=== PATIENT | female | born 1970 | race Caucasian/White ===

== ENCOUNTER 2017-04-30 15:28 | Emergency (ER) | payer OTHER ==
[~2017-04-30] VITALS: Ht 160 cm; Wt 94.1 kg
[2017-04-30 15:34] VITALS: TEMP 36.5; Ht 160 cm; Wt 94.1 kg
--- NOTE | 2017-04-30 16:05 | EMERGENCY ROOM VISIT NOTE ---
ED Visit Note First contact with patient: 15:40 CHIEF COMPLAINT: Tailbone pain, possible Lyme disease HISTORY OF PRESENT ILLNESS: This 46-year-old female patient presents to the emergency department, ambulatory, complaining of tailbone pain x3 days. She states she was working outside breaking up branches and jumped onto a large log to do this, w prudence the log rolled and she landed on her tailbone. She denies any head injury. She states the discomfort feels like a bruise, however when she turns the wrong way it causes increased pain. She has not taken any medications for her pain, and states as long as she is cautious about how she is turning and moving, the pain is not a problem. The patient has no diarrhea or constipation. She has no abdominal pain. There is minimal bruising on the low back. She denies any fever, chills, radiating back pain, paresthesias, or other concerning symptoms. The patient also complains of a tick bite last week on her right back. She states she did note a bull's-eye rash surrounding the bite. She was given a prophylactic dose of doxycycline to prevent Lyme disease. The patient states she had labs drawn and was told by her PCP that she may have Lyme disease, however it was not treated properly. She states she is having difficulty getting in contact with them and have an evaluation completed, and is irritated that they are not treating her. Patient does question if she could have repeat testing here and possible treatment for Lyme disease. The patient denies any new joint pains, palpitations, chest pain, dizziness, dyspnea, confusion, mental status change, or other concerning symptoms. REVIEW OF SYSTEMS: A 10 system review of systems was performed with positives and pertinent negatives listed in the history of present illness. All other systems were reviewed and are negative. ALLERGIES: Demerol MEDICATIONS: Meloxicam PMH: Multiple hereditary exostosis SOCIAL HISTORY: Patient lives locally with family. She denies drug, alcohol, tobacco use. PHYSICAL EXAM: VITALS: Vitals are noted on the nurse's note and reviewed by myself. Vital signs stable. GENERAL: This is a 46-year-old white female, in no acute distress, nondiaphoretic, well-developed well-nourished. SKIN: The skin was without rashes, erythema, edema, or bruising. There is no tenting of the skin. Capillary reflex less than 2 seconds. HEAD: Normocephalic atraumatic. EARS: External auditory canals clear, tympanic membranes pearly dodd without erythema or effusion bilaterally. EYES: Pupils equal round and reactive to light and accommodation. Conjunctivae without injection, sclerae without icterus. Extraocular movements intact. NOSE: Patent, turbinates without inflammation or discharge. No sinus tenderness. MOUTH: Mucous membranes moist. Tonsils are not enlarged. Pharynx without erythema or exudate. Uvula midline. Airway patent. Tongue does not deviate. NECK: Supple without nuchal rigidity. No lymphadenopathy. No thyromegaly. Cervical spine is nontender. No JVD. HEART: Regular rate and rhythm without murmurs gallops or rubs. LUNGS: Clear to auscultation bilaterally without wheezes, rales or rhonchi. No dullness to percussion. No retractions or accessory muscle use. ABDOMEN: Positive bowel sounds x 4. Normal tympanic percussion. Soft, nontender, without masses or organomegaly. Guidry sign negative. No guarding or rebound tenderness. MUSCULOSKELETAL: There is significant tenderness over the coccyx on palpation and with positioning of the patient. No muscle atrophy, erythema, or edema noted. Full range of motion without joint tenderness in all extremities. No other tenderness to palpation. Normal gait. Strength 5/5 throughout. NEURO: Patient was alert and oriented to person place and time. Normal sensation to light and sharp touch. Deep tendon reflexes 2+ throughout. No focal neurological deficits. RADIOLOGY: X-Ray Sacrum/Coccyx: SACRUM COCCYX MIN 2 VIEWS CLINICAL HISTORY: fall on tailbone, coccyx/sacrum pain trauma. Pain. COMPARISON STUDY: None FINDINGS: Blank slightly displaced fracture of the sacrococcygeal junction. The inferior coccygeal segments are slightly displaced posteriorly estimated at 3 mm.. Moderate degenerative change of the sacroiliac joints bilaterally. Sacral foramina are symmetric. There are degenerative and/or old postmenopausal changes of the pubic rings. IMPRESSION: Slightly displaced fracture sacrococcygeal junction. The above report was generated using voice recognition software. It may contain grammatical, syntax or spelling errors. Electronically signed by: Temo Larose M.D. 04/30/2017 4:38 PM Dictated Date/Time: 04/30/2017 4:36 PM EMERGENCY DEPARTMENT COURSE: The patient was seen and evaluated as above. X- ray of the sacrum and coccyx was performed and did show mildly displaced coccyx fracture. The patient also had labs drawn for Lyme disease. Labs were negative at this time. I did discuss treatment options with the patient at bedside. She states she had been speaking with Dr. Avelar earlier today at his home and discussing Lyme disease and treatment with doxycycline. I discussed the risks associated with doxycycline and an antibiotic for an extended period of time with the patient at bedside. I encouraged her to follow up outpatient with her PCP, infectious disease specialist, or Lyme disease specialist prior to starting antibiotic treatment due to these risks. The patient verbalizes understanding and states she prefers to start antibiotics despite the negative labs in the ED, risks, and possible adverse reactions of taking antibiotics. Discharge instructions were reviewed, medications were sent to the pharmacy, and the patient was discharged home in good condition. I attest that I have personally reviewed the patient's current medication list. Patient was found to have normal blood pressure on screening and does not require follow-up. DIFFERENTIAL DIAGNOSIS: Lyme disease, insect bite, localized infection, coccydynia, coccyx fracture, sacrum fracture, and others DIAGNOSIS: Coccyx fracture, tick bite Current/Historical Medications Scheduled Doxycycline Hyclate (Vibramycin), 100 MG PO BID Scheduled PRN Hydrocodone/Acetaminophen 5MG/325MG (Stow 5MG/325MG), 1 TABLET PO QID PRN for Pain Meloxicam (Mobic), 15 MG PO DAILY PRN for Pain Allergies Coded Allergies: Meperidine (Verified Allergy, Unknown, 08/06/09) Vital Signs Date Time Temp Pulse Resp B/P (MAP) Pulse Ox O2 Delivery O2 Flow Rate FiO2 04/30/17 15:34 36.5 73 18 124/81 97 Room Air Laboratory Results Test 04/30/17 16:04 Lyme Disease IgG Antibody NEG (NEG) Lyme Disease IgM Antibody NEG (NEG) Departure Information Impression Primary Impression: Fracture of coccyx, initial encounter for closed fracture Additional Impression: Tick bite Dispostion Home / Self-Care Condition GOOD Prescriptions Doxycycline Hyclate (VIBRAMYCIN) 100 Mg Cap 100 MG PO BID for 21 Days, #42 CAP Prov: Summer Pacheco, [place] 04/30/17 Hydrocodone/Acetaminophen 5MG/325MG (Stow 5MG/325MG) Tab 1 TABLET PO QID Y for Pain for 3 Days, #12 TAB PRN PAIN Prov: Summer Pacheco PA-C 04/30/17 Referrals No Doctor, Assigned (PCP) Patient Instructions Doxycycline tablets or capsules, ED Facts Tick, ED Fx Coccyx, ED Lyme Disease, [facility] Additional Instructions You were seen in the emergency department today for a coccyx fracture. This fracture will heal on its own over time. You should give it at least 6-8 weeks to fully heal. Ibuprofen(Motrin, Advil) may be used for fever or pain. Use 600mg every six hours as needed. Take with food. Avoid using more than 2400mg in a 24 hour period. Do not use 2400mg per day for more than three consecutive days without physician direction. Prolonged inappropriate use can lead to stomach upset or ulcers. Do not take ibuprofen while you're taking meloxicam. (AND/OR) Acetaminophen(Tylenol) may be used for fever or pain. Use 1000mg every six hours as needed. Avoid using more than 3000mg in a 24 hour period. I do recommend an OTC stool softener to help prevent constipation, which could worsen pain. You have been prescribed Stow to be used for pain control. Take 1 tablets every 4-6 hours as needed for pain. This is a narcotic medication. You cannot drive or consume alcohol while on this medicine. This medicine should only be used for pain that cannot be controlled with [id number] pain medicines. I do recommend to sit on a donut pillow or exercise ball to help relieve discomfort. We did also perform laboratory testing for Lyme disease. This was negative. I do not feel that 3 weeks of antibiotics at this time is warranted, however you may want to continue to follow-up with your PCP regarding further testing. If you notice significant joint pains, swelling, palpitations, difficulty breathing , or other concerning neurological symptoms, or an erythema migrans (bull's-eye rash), return to the emergency Department or see your PCP for further treatment. As discussed, and at your request and recommendation by Dr. Avelar, you were given a prescription for a 3-week course of Doxycycline to be taken BID in case of lyme disease, despite negative testing in the ED. As discussed, this antibiotic does have the potential for side effects, including allergic reaction , anaphylaxis, photosensitivity, C. difficile associated diarrhea, vasculitis, anemia, hepatitis, pericarditis, hepatotoxicity, nephrotoxicity, pancreatitis, thrombocytopenia, neutropenia, esophagitis or esophageal ulcer, headache, nausea , arthralgia, diarrhea, URI symptoms, rash, or others. You may want to consider follow-up with your PCP or infectious disease provider, or a lyme disease specialist, prior to taking this medication. Avoid sun exposure, and you may want to consider a probiotic while taking Doxycycline. Return to the emergency department for any symptoms outlined above or other concerns. Problem Qualifiers Additional Impression: Tick bite Encounter type: subsequent encounter Qualified Codes: W57.XXXD - Bitten or stung by nonvenomous insect and other nonvenomous arthropods, subsequent encounter
[2017-04-30] MEDS ORDERED: MELO15TA4 PO (16:10)
--- NOTE | 2017-04-30 16:39 | DIAGNOSTIC IMAGING REPORT ---
SACRUM COCCYX MIN 2 VIEWS CLINICAL HISTORY: fall on tailbone, coccyx/sacrum pain trauma. Pain. COMPARISON STUDY: None FINDINGS: Blank slightly displaced fracture of the sacrococcygeal junction. The inferior coccygeal segments are slightly displaced posteriorly estimated at 3 mm.. Moderate degenerative change of the sacroiliac joints bilaterally. Sacral foramina are symmetric. There are degenerative and/or old postmenopausal changes of the pubic rings. IMPRESSION: Slightly displaced fracture sacrococcygeal junction. The above report was generated using voice recognition software. It may contain grammatical, syntax or spelling errors. Electronically signed by: Temo Larose M.D. 04/30/2017 4:38 PM Dictated Date/Time: 04/30/2017 4:36 PM
[2017-04-30] MEDS ORDERED: HYDR-5688 PO (16:43)
[2017-04-30 17:08] LABS: LYME DISEASE AB IGG NEG (NEG); LYME DISEASE AB IGM NEG (NEG)
[2017-04-30] MEDS ORDERED: DOXY100C PO (17:14)
[2017-04-30 17:31] VITALS: BP 104/50; PULSE 62; O2SAT 100
== END 2017-04-30 17:34 | disposition home or self-care (01) ==
LOC: C.EDB 15:30 → C.EDD 17:34
DX: S32.2XXA Fracture of coccyx, initial encounter for closed fracture (principal); W57.XXXD Bitten or stung by nonvenomous insect and other nonvenomous arthropods, subsequent encounter

== ENCOUNTER 2022-02-07 20:53 | Inpatient (IN) ==
[2022-02-07] MEDS ORDERED: ONDANSETRON INJ 2 MG/ML 2 ML VIAL IV STA (21:39)
[2022-02-07] MEDS ORDERED: SODIUM CHLORIDE 0.9% 500 ML IV STA (21:39)
[2022-02-07] MEDS ORDERED: MoRPHine SULFATE 4 MG/ML 1 ML CARP\\VIAL IV STA (21:40)
[2022-02-07 22:17] LABS: Basophils # (auto) 0.02 K/uL (0-0.2); Basophils % (auto) 0.2 %; Eosinophils # (auto) 0.06 K/uL (0-0.50); Eosinophils % (auto) 0.5 %; Hematocrit (blood only) 41.9 % (34.1-44.9); Hemoglobin 14.5 g/dl (12.0-16.0); Immature Granulocytes # (auto) 0.03 K/uL (0.00-0.02); Immature Granulocytes % (auto) 0.3 %; Lymphocytes # (auto) 1.69 K/uL (1.2-3.4); Mean Corpuscular Hemoglobin 30.1 pg (25.0-34.0); Mean Corpuscular Hgb Conc 34.6 g/dL (32.0-36.0); Mean Corpuscular Volume 86.9 fL (80.0-100.0); Mean Platelet Volume 11.3 fL (9.4-12.3); Monocytes # (auto) 0.62 K/uL (0.24-0.82); Monocytes % (auto) 5.5 %; Neutrophils # (auto) 8.86 K/uL (1.4-6.5); Neutrophils % (auto) 78.5 %; Platelet Count 298 K/uL (130-400); RDW Coefficient of Variation 12.6 % (11.5-14.5); RDW Standard Deviation 40.1 fL (36.4-46.3); Red Blood Count 4.82 M/uL (3.93-5.22); White Blood Count 11.28 K/ul (4.8-10.8)
[2022-02-07 22:38] LABS: Alanine Aminotransferase 14 U/L (7-52); Albumin Globulin Ratio 1.4 (0.9-2); Albumin Level 4.3 gm/dl (3.4-5.0); Alkaline Phosphatase 70 U/L (34-104); Anion Gap 12 (3-11); Aspartate Aminotransferase 15 U/L (13-39); BUN Creatinine Ratio 17.6 (10-20); Bilirubin,Total 0.5 mg/dl (0.2-1.0); Blood Urea Nitrogen 18 mg/dl (6-23); Calcium 9.6 mg/dl (8.5-10.1); Carbon Dioxide 21 mmol/L (21-32); Chloride 105 mmol/L (98-107); Est GFR (African American) 73.2 ml/min; Est GFR (Non-African American) 63.2 ml/min; Globulin 3.1 gm/dl (2.5-4.0); Glucose 118 mg/dl (70-99(Fasting)); Lipase 11 U/L (11-82); Potassium 3.8 mmol/L (3.5-5.1); Sodium 138 mmol/L (136-145); Total Protein 7.4 gm/dl (6.0-8.3)
[2022-02-08] MEDS ORDERED: KETOROLAC 30 MG/ML VIAL IV STA (00:33)
[2022-02-08] MEDS ORDERED: PROMETHAZINE 12.5 MG/50.5 ML BAG IV STA (00:38)
--- NOTE | 2022-02-08 00:44 | Emergency Department Note ---
History of Present Illness General Chief complaint: Abdominal Pain Stated complaint: SEVERE ABDOMINAL PAIN Time Seen by Provider: 02/08/22 00:30 History of Present Illness Maximum Pain Intensity: 10 This is a 51-year-old female presenting to the emergency department for evaluation of left flank pain/abdominal pain for the past few hours. The patient states that around 6 PM she began having some left lower quadrant abdominal pain that caused her nausea with vomiting. She has not had fevers or chills. No chest pain, chest tightness, shortness of breath. The patient does have a history of diverticulitis and is concerned that she may have the same symptoms. Her pain is also radiating into her back and rates her pain a colicky 10/10 at worst. She has not been able to tolerate anything pain medication gilmore because of her vomiting. Home Medications Medication Instructions Recorded Confirmed Type conj estrogen-medroxyprogesterone 1 tab PO HS 12/10/20 02/08/22 History 0.45 mg-1.5 mg tablet (Prempro) lidocaine 5 % topical patch 1 patch topical DAILY PRN Pain 12/10/20 02/08/22 History trazodone 100 mg tablet 200 mg PO HS 12/10/20 02/08/22 History diclofenac sodium 75 mg 75 mg PO BID PRN Pain, Severe 08/16/21 02/08/22 History tablet,delayed release phentermine 37.5 mg tablet 37.5 mg PO DAILY 08/16/21 02/08/22 History metoprolol succinate 25 mg 25 mg PO DAILY PRN PVC'S 02/08/22 02/08/22 History tablet,extended release 24 hr naltrexone 50 mg tablet 12.5 mg PO DAILY 02/08/22 02/08/22 History omeprazole 20 mg tablet,delayed 20 mg PO DAILY PRN Heartburn 02/08/22 02/08/22 History release spironolactone 100 mg tablet 100 mg PO QAM 02/08/22 02/08/22 History topiramate 50 mg tablet 50 mg PO DAILY 02/08/22 02/08/22 History Allergies Allergy/AdvReac Type Severity Reaction Status Date / Time hydromorphone [From Dilaudid] Allergy Unknown CAN'T Verified 02/08/22 01:00 REMEMBER meperidine AdvReac Severe SEIZURE Verified 02/08/22 01:00 A CHILD Past Med/Surg History Medical History Symptoms of urinary tract infection UTI (urinary tract infection) Surgical History No significant past surgical history Family History Other No significant family history Social History Smoking Status: Never smoker Preferred Language: [place] Communication Ability: Effective Feels Safe at Home: Yes Review of Systems A total of 10 systems reviewed and were otherwise negative Physical Exam Vital Signs Vital Signs - 24 hr 02/07/22 21:25 02/08/22 01:16 Temperature 37.2 C Temperature Source Temporal Artery Scan Pulse Rate 68 Pulse Rate [Apical] 67 Pulse Rhythm [Apical] Regular Pulse Strength [Apical] Normal Respiratory Rate 20 18 Respiratory Effort / Characteristics Non-Labored Non-Labored Spontaneous Respiratory Depth Normal Normal Respiratory Pattern Regular Regular Blood Pressure 123/82 Blood Pressure [Left Arm] 123/62 Blood Pressure Mean 95 Blood Pressure Mean [Left Arm] 82 Blood Pressure Position Sitting Blood Pressure Position [Left Arm] Lying Pulse Oximetry 100 99 Oxygen Delivery Method Room Air Room Air Sepsis Recent Fever Within 48 Hours No Sepsis New/Unexplained Change in Mental Status N/A Sepsis Action Taken by Nursing No Action Required VITALS: Vitals are noted on the nurse's note and reviewed by myself. Vital signs stable. GENERAL: Well-developed, well-nourished, white female, who is significantly uncomfortable on presentation. HEAD: Normocephalic atraumatic. NECK: Supple without nuchal rigidity. No lymphadenopathy. No thyromegaly. Cervical spine is nontender. HEART: Regular rate and rhythm without murmurs gallops or rubs. LUNGS: Clear to auscultation bilaterally without wheezes, rales or rhonchi. No retractions or accessory muscle use. ABDOMEN: Positive normal bowel sounds x 4. Soft, nontender, without masses or o rganomegaly. No guarding or rebound tenderness. MUSCULOSKELETAL: No muscle atrophy, erythema, or edema noted. Full range of motion in all extremities. Course Administered Medications Acetaminophen (Acetaminophen 325 Mg Tab) 650 mg PO Q4H PRN PRN Reason: pain/fever Stop: 03/10/22 03:06 Last Admin: 02/08/22 04:20 Dose: 650 mg Documented By: ANASTASIYA Ceftriaxone Sodium 2,000 mg/ (Dextrose) 70 mls @ 140 mls/hr IV Q24H TANIA; Protocol Stop: 02/18/22 03:59 Last Infusion: 02/08/22 04:59 Dose: 0 mls/hr Documented By: Admin: 02/08/22 04:17 Dose: 140 mls/hr Documented By: ANASTASIYA Sodium Chloride (Nss 1000ml) 1,000 mls @ 125 mls/hr IV .Q8H TANIA Stop: 03/10/22 03:06 Last Admin: 02/08/22 04:18 Dose: 125 mls/hr Documented By: ANASTASIYA Discontinued Medications Sodium Chloride (Nss) 500 mls @ 999 mls/hr IV .Q31M STA Stop: 02/07/22 22:09 Last Infusion: 02/07/22 23:30 Dose: 0 mls/hr Documented By: Admin: 02/07/22 22:08 Dose: 999 mls/hr Documented By: TOMMY Promethazine HCl (Phenergan) 12.5 mg in 50.5 mls @ 202 mls/hr IV NOW STA Stop: 02/08/22 00:52 Last Infusion: 02/08/22 01:20 Dose: 0 mls/hr Documented By: Admin: 02/08/22 01:01 Dose: 202 mls/hr Documented By: PERLA Sodium Chloride (Nss 1000ml) 1,000 mls @ 999 mls/hr IV .Q1H1M TANIA Stop: 02/08/22 01:45 Last Infusion: 02/08/22 02:13 Dose: 0 mls/hr Documented By: Admin: 02/08/22 00:56 Dose: 999 mls/hr Documented By: PERLA Ketorolac Tromethamine (Ketorolac 30 Mg/Ml Vial) 30 mg IV NOW STA Stop: 02/08/22 00:34 Last Admin: 02/08/22 00:57 Dose: 30 mg Documented By: PERLA Morphine Sulfate (Morphine Sulfate 4 Mg/Ml 1 Ml Carp\Vial) 4 mg IV NOW STA Stop: 02/07/22 21:41 Last Admin: 02/07/22 22:08 Dose: 4 mg Documented By: TOMMY Morphine Sulfate (Morphine Sulfate 4 Mg/Ml 1 Ml Carp\Vial) 4 mg IV Q30M PRN PRN Reason: Pain Stop: 02/22/22 00:32 Last Admin: 02/08/22 02:51 Dose: 4 mg Documented By: Admin: 02/08/22 00:59 Dose: 4 mg Documented By: PERLA Ondansetron HCl (Ondansetron Inj 2 Mg/Ml 2 Ml Vial) 4 mg IV NOW STA Stop: 02/07/22 21:40 Last Admin: 02/07/22 22:08 Dose: 4 mg Documented By: TOMMY Medical Decision Making Differential Diagnosis Differential diagnosis: Etiologies such as shingles, pyelonephritis/UTI, renal colic, appendicitis, diverticulitis, mesenteric ischemia, torsion, aortic pathology, infections, inflammatory bowel disease, bowel obstruction, PUD, biliary pathology, as well as others were entertained. Laboratory Data Result diagrams: 02/07/22 22:05 02/07/22 22:05 Lab Results 02/07/22 02/07/22 02/08/22 Range/Units 22:05 22:05 01:17 WBC 11.28 H (4.8-10.8) K/ul RBC 4.82 (3.93-5.22) M/uL Hgb 14.5 (12.0-16.0) g/dl Hct 41.9 (34.1-44.9) % MCV 86.9 (80.0-100.0) fL MCH 30.1 (25.0-34.0) pg MCHC 34.6 (32.0-36.0) g/dL RDW Std Deviation 40.1 (36.4-46.3) fL RDW Coeff of Jovan 12.6 (11.5-14.5) % Plt Count 298 (130-400) K/uL MPV 11.3 (9.4-12.3) fL Immature Gran % (Auto) 0.3 % Neut % (Auto) 78.5 % Lymph % (Auto) 15.0 % [place] % (Auto) 5.5 % Eos % (Auto) 0.5 % Baso % (Auto) 0.2 % Neut # (Auto) 8.86 H (1.4-6.5) K/uL Lymph # (Auto) 1.69 (1.2-3.4) K/uL [place] # (Auto) 0.62 (0.24-0.82) K/uL Eos # (Auto) 0.06 (0-0.50) K/uL Baso # (Auto) 0.02 (0-0.2) K/uL Immature Gran # (Auto) 0.03 H (0.00-0.02) K/uL Sodium 138 (136-145) mmol/L Potassium 3.8 (3.5-5.1) mmol/L Chloride 105 (98-107) mmol/L Carbon Dioxide 21 (21-32) mmol/L Anion Gap 12 H (3-11) BUN 18 (6-23) mg/dl Creatinine 1.02 (0.6-1.2) mg/dl Est Cr Clr Drug Dosing Not Reportable Est GFR ( Amer) 73.2 ml/min Est GFR (Non-Af Amer) 63.2 ml/min BUN/Creatinine Ratio 17.6 (10-20) Glucose 118 H (70-99(Fasting)) mg/dl Calcium 9.6 (8.5-10.1) mg/dl Total Bilirubin 0.5 (0.2-1.0) mg/dl AST 15 (13-39) U/L ALT 14 (7-52) U/L Alkaline Phosphatase 70 (34-104) U/L Total Protein 7.4 (6.0-8.3) gm/dl Albumin 4.3 (3.4-5.0) gm/dl Globulin 3.1 (2.5-4.0) gm/dl Albumin/Globulin Ratio 1.4 (0.9-2) Lipase 11 (11-82) U/L SARS-CoV-2, RNA, NAAT NEGATIVE (NEGATIVE) Imaging Data Radiologist's Impression: Preliminary Findings Only See Final Report For Complete Findings CT ABDOMEN & PELVIS Without Contrast: No focal hepatic lesion. Cholelithiasis. Normal spleen, adrenal glands, and pancreas. Obstructing 5 mm left proximal ureter calculus, located 6.2 cm distal to the left renal pelvis. Mild fullness of the left renal collecting system. Trace perinephric stranding. There are multiple left lower pole nonobstructing renal calculi. No right-sided renal calculi. Decompressed urinary bladder. Diverticulosis, without acute diverticulitis. No small bowel obstruction. Normal appendix. Small fat-containing umbilical hernia. Non-aneurysmal aorta. Degenerative changes of the spine. IMPRESSION: Obstructing 5 mm left proximal ureter calculus, located 6.2 cm distal to the left renal pelvis. Mild fullness of the left renal collecting system. Trace perinephric stranding. There are multiple left lower pole nonobstructing renal calculi. No right-sided renal calculi. Radiologist:Howie Green [facility]:[phone] [facility] Narrative Physical exam and history were performed. Nursing notes, EMR, and Medication List were personally reviewed. Patient appears to have severe cute onset left flank pain bringing her to the ER. The patient arrives to the ER during a period of very high ER volume and acuity with extended wait times. Patient was initially brought to my attention while she was being triaged, and orders were placed for IV morphine and CT scan of the abdomen and pelvis. Patient was placed back in the waiting room pending bed availability. On arrival to the room the patient has already requested to speak with a cashier supervisor, as she feels that she has been waiting an extended period of time. Charge nurse did reassure the patient that she would be attended to momentarily. At this time I did enter the room and the patient is quite uncomfortable appearing on her ER bed. Nursing protocol orders are available for my review at the time of patient interaction. She does not have a significantly elevated white blood cell count, gross anemia, bandemia, or significant electrolyte imbalance. Transaminases are not diagnostic. CT scan was reviewed by myself and radiology and does reveal a roughly 5 mm proximal obstructing ureteral calculi. This does correlate with her symptoms. I did order the patient IV Toradol and additional IV morphine. COVID swab was gathered. Options of care were discussed with the patient, and she does not feel well for discharge home. Case was discussed with the on-call hospitalist team who agreed to evaluate patient here in the ER. Please see their dictation for further patient course, plan, disposition. The chart was completed utilizing [employer] Voice Recognition Software. Grammatical errors, random word insertions, pronoun errors, and incomplete sentences are an occasional consequence of this system due to software limitations, ambient noise, and hardware issues. Any formal questions or concerns about the content, text, or information contained within the body of this dictation should be directly addressed to the provider for clarification. . Impression & Plan Left ureteral stone, Left flank pain Discharge Plan Visit Data Chief Complaint: Abdominal Pain Stated Complaint: SEVERE ABDOMINAL PAIN ED Provider: Delphine Alberto ED Midlevel Provider: Holden Napier Discharge Problem: Left ureteral stone, Left flank pain Patient Disposition: Home - Self-Care Condition: Good Discharge Instructions Interventions: ED Discharge Assessment Last Done: 02/08/22 04:31
[2022-02-08] MEDS ORDERED: SODIUM CHLORIDE 0.9% 1000ML 1,000 ML IV SCH ×2 (00:45→12:57)
[2022-02-08] MEDS: MoRPHine SULFATE 4 MG/ML 1 ML CARP\\VIAL IV PRN ×4 (00:59→18:37)
--- NOTE | 2022-02-08 03:06 | History and Physical Report ---
DATE OF ADMISSION: 02/08/2022 CHIEF COMPLAINT: Abdominal pain. HISTORY OF PRESENT ILLNESS: This is a 51-year-old female with past medical history significant for PVCs, varicose veins of the lower extremities, multiple exostosis hereditary, myofascial pain syndrome, osteochondroma, obesity, presents with abdominal pain. She states pain started in the upper abdomen, but later noted pain is more in the left flank. Has severe pain associated with nausea and several episodes of vomiting. Currently, feeling chills. Denies any fever, no burning micturition. Somewhat constipated. No chest pain, no shortness of breath, no headache, no blurred visions, no earache, no runny nose. Hemodynamically stable. She says she had kidney stones in the past and she passed them on their own. ALLERGIES: DILAUDID, MEPERIDINE. PAST MEDICAL HISTORY: As mentioned above. PAST SURGICAL HISTORY: , colonoscopy, endometrial ablation, ligation of oviducts. MEDICATIONS: The patient is on medroxyprogesterone 1 tablet p.o. at bedtime, diclofenac sodium 75 mg p.o. b.i.d. p.r.n., lidocaine patch topical daily, metoprolol succinate 25 mg p.o. daily p.r.n. for PVCs, naltrexone 12.5 mg p.o. daily, omeprazole 20 mg p.o. daily p.r.n., phentermine 37.5 mg p.o. daily, spironolactone 100 mg p.o. a.m., topiramate 50 mg p.o. daily, trazodone 50-100 mg p.o. at bedtime. FAMILY HISTORY: Significant for father has asthma. Sister has lupus, esophagitis, CAD. Mother has osteochondroma, arthritis. Daughter has congenital regional pain syndrome. Son has MHE. Brother has bipolar disorder. SOCIAL HISTORY: . No smoking, no alcohol, no drug use. REVIEW OF SYSTEMS: As per HPI. Rest of the review of systems is negative. PHYSICAL EXAMINATION: GENERAL: The patient is obese, not in acute distress. VITAL SIGNS: Temperature 37.2, pulse 67, respiratory rate 18, blood pressure 123/62, oxygen 99% on room air. HEENT: Pupils equal, round and reactive to light. Oral mucosa moist. NECK: No JVD, no neck masses. CARDIOVASCULAR: S1 and S2 heard. Regular rate and rhythm. No murmur, no gallop. RESPIRATORY SYSTEM: Normal AP diameter. No accessory muscle use. No wheezing, no crackles. ABDOMEN: Soft, bowel sounds present. Left CVA tenderness present. No distention. CENTRAL NERVOUS SYSTEM: Cranial nerves II-XII grossly intact, nonfocal. EXTREMITIES: No edema, no erythema. LABORATORY DATA: WBC 11.2, hemoglobin 14.5, hematocrit 41.9, platelets 298. Sodium 138, potassium 3.8, chloride 105, bicarbonate 21, BUN 18, creatinine 1.02, serum glucose 118, calcium 9.6, total bilirubin 0.5, AST 15, ALT 14, alkaline phosphatase 70, lipase 11. SARS-CoV-2 rapid test negative. IMAGING DATA: CT abdomen and pelvis, preliminary report showed 5 mm obstructing left ureteral calculus. ASSESSMENT AND PLAN: This is a 51-year-old female who presents with left renal colic. 1. Left renal colic, a 5 mm left ureteral calculus. The patient is having chills in the ER, rise in white count. Urinalysis ok. We will empirically start on Rocephin, IV fluids, IV antiemetics p.r.n. Consult Urology. We will keep her n.p.o.Close monitor. 2. History of PVCs. On metoprolol p.r.n. 3. History of GERD, on omeprazole p.r.n. 4. Deep venous thrombosis prophylaxis: Sequential compression devices for now. DISPOSITION: Monitor in the medical floor. Expect to discharge home and follow with family doctor. Job ID: [id number] [facility]
[2022-02-08] MEDS ORDERED: KETOROLAC TROMETHAMINE 15 MG/ML VIAL IV PRN (03:07)
[2022-02-08] MEDS ORDERED: PANTOprazole 40 MG TAB PO PRN (03:07)
[2022-02-08] MEDS ORDERED: METOPROLOL SUCC 25MG EXT REL TAB PO PRN (03:07)
[2022-02-08] MEDS: cefTRIAXone SODIUM 2,000 MG in DEXTROSE 5% 50 ML IV SCH (04:17)
[2022-02-08] MEDS: SODIUM CHLORIDE 0.9% 1000ML 1,000 ML IV SCH ×3 (04:18→19:25)
[2022-02-08] MEDS: ACETAMINOPHEN 325 MG TAB PO PRN (04:20)
[2022-02-08 05:37] LABS: Appearance Urine Clear (Clear); Bacteria Urine Automated Negative (Negative); Bilirubin Urine Negative (Negative); Blood Urine Trace (Negative); Color Urine Yellow; Epithelial Cell Urine Auto >30 /lpf (0-5); Glucose Urine UA Negative (Negative); Ketones Urine 2+ (Negative); Leukocyte Esterase Urine Trace (Negative); Nitrite Urine Negative (Negative); Protein Urine Negative (Negative); RBC Urine Automated 0-4 /hpf (0-4); Specific Gravity Urine 1.018 (1.000-1.030); Urobilinogen Urine Negative (Negative); pH Urine 6.5 (4.5-7.5)
[2022-02-08] MEDS ORDERED: SODIUM CHLORIDE 0.9% 500 ML IV SCH ×2 (06:00→08:00)
--- NOTE | 2022-02-08 08:11 | CT Scan Report ---
CT abd pelvis wo con CLINICAL HISTORY: Abdominal Pain, Vomiting, Hx. Diverticulitis. TECHNIQUE: Helical axial images of the abdomen and pelvis were obtained. Automated dose lowering tech niques and/or adjustment according to patient size were utilized for this exam. This exam was perfor med without intravenous contrast. CT DOSE: 766.94 mGy.cm COMPARISON: None available at the time of this dictation. FINDINGS: Lower chest: No acute abnormality Liver: Unremarkable. No focal lesions are seen. Gallbladder and biliary tree: Cholelithiasis is seen without evidence of cholecystitis. No intra- or extrahepatic biliary ductal dilation. Pancreas: Unremarkable, no focal lesions. Spleen: Unremarkable. Adrenals: Unremarkable. Kidneys and ureters: There is an obstructive left ureteral calculus measuring approximately 3 mm in d iameter with associated mild hydronephrosis/hydroureter. Additional nonobstructive stones are seen. Bladder: Unremarkable. Reproductive organs: Unremarkable. Bowel: Diverticulosis is seen without evidence of diverticulitis. The appendix is unremarkable. A hia sharyn hernia is seen. Lymph nodes Retroperitoneal: Unremarkable. Pelvic: Unremarkable. Mesenteric: Unremarkable. Peritoneum: Normal. Vessels: Unremarkable. Abdominal wall: Unremarkable. Bones: Unremarkable. IMPRESSION: Obstructive nephrolithiasis in the left proximal ureter with associated mild hydronephrosis. ACT 112: Negative or not required by law. Electronically signed by: Mac Clayton M.D. 02/08/2022 8:09 AM
--- NOTE | 2022-02-08 08:31 | Urology Consultation ---
Date of Consultation February 08, 2022 Assessment & Plan (1) Left ureteral stone: (2) Left flank pain: Plan 51yo F admitted with left renal colic secondary to an obstructing 5mm L UPJ stone. - Pt afebrile but hypotensive this AM. - Still with significant pain, nausea, chills. - Plan of care reviewed with Dr. Pulido. - Given she is unstable, we will plan to proceed to OR this morning urgently for cystoscopy, left ureteral stent placement with . - Risks and benefits to be reviewed with patient by Dr. Pulido. OR notified. Covid test negative. Pt had IV Rocephin in ED. - Keep NPO. - Continue supportive care and pain management. History of Present Illness Reason for Consultation: Left renal colic Attending Physician: Jacqueline Trujillo MD History of Present Illness 51yo F with a past medical history significant for PVCs, varicose veins of the lower extremities, multiple exostosis hereditary, myofascial pain syndrome, osteochondroma, obesity, who presented with severe left abdominal and flank pain with associated nausea, vomiting, and chills. A CTAP was obtained and notable for a 5 mm obstructing left UPJ stone with mild hydronephrosis. Afebrile on arrival. Mild leukocytosis and normal renal function. Urinalysis with trace blood, trace LE, negative bacteria, negative nitrite. Patient examined at bedside in the ED. Awake, resting in bed on arrival. Nursing and ED physician at bedside. Patient noted to be hypotensive in the ED this morning. Still with significant left flank pain and nausea. Still with chills, nausea. Has been NPO. No hematuria, dysuria. Patient with she says she had kidney stones in the past and she passed them on their own. Allergies Allergy/AdvReac Type Severity Reaction Status Date / Time hydromorphone [From Dilaudid] Allergy Unknown CAN'T Verified 02/08/22 01:00 REMEMBER meperidine AdvReac Severe SEIZURE Verified 02/08/22 01:00 A CHILD Home Medications Medication Instructions Recorded Confirmed Type conj estrogen-medroxyprogesterone 1 tab PO HS 12/10/20 02/08/22 History 0.45 mg-1.5 mg tablet (Prempro) lidocaine 5 % topical patch 1 patch topical DAILY PRN Pain 12/10/20 02/08/22 History trazodone 100 mg tablet 200 mg PO HS 12/10/20 02/08/22 History diclofenac sodium 75 mg 75 mg PO BID PRN Pain, Severe 08/16/21 02/08/22 History tablet,delayed release phentermine 37.5 mg tablet 37.5 mg PO DAILY 08/16/21 02/08/22 History metoprolol succinate 25 mg 25 mg PO DAILY PRN PVC'S 02/08/22 02/08/22 History tablet,extended release 24 hr naltrexone 50 mg tablet 12.5 mg PO DAILY 02/08/22 02/08/22 History omeprazole 20 mg tablet,delayed 20 mg PO DAILY PRN Heartburn 02/08/22 02/08/22 History release spironolactone 100 mg tablet 100 mg PO QAM 02/08/22 02/08/22 History topiramate 50 mg tablet 50 mg PO DAILY 02/08/22 02/08/22 History Patient History Medical History Symptoms of urinary tract infection UTI (urinary tract infection) Surgical History No significant past surgical history Family History Other No significant family history Social History Smoking Status: Never smoker Second Hand Exposure: No; Do You Dip or Chew Tobacco: No; Tobacco Cessation Education Requested by Patient: No Hx Alcohol Use: Yes Hx Substance Use: No Preferred Language: Scottish Communication Ability: Effective Small Lot Operator Required: No Beliefs That Will Affect Care: Rastafari Current Living Situation: Spouse and Family Other Information That Helps Us Care for You: No Feels Safe at Home: Yes Safety Concerns: Feels Safe At This Time Assistive Devices: None Review of Systems Review of Systems: All systems reviewed & are unremarkable except as noted in HPI & below Physical Exam Constitutional: + uncomfortable Neck: normal visual inspection Respiratory: no respiratory distress and no labored breathing Gastrointestinal (Abdomen): Percussion/Palpation: + abdomen tender (LLQ) and abdomen soft Musculoskeletal: Head/Neck/Chest: normocephalic Skin: No visible rashes or lesions to exposed skin areas Neurologic: awake Psychiatric: Orientation: alert and oriented x 3 Results & Data ([facility]) Vital Signs (Past 12 Hours) Vital Signs Temp Pulse Pulse Resp BP BP Pulse Ox 02/08/22 06:27 36.8 C 64 18 88/62 L 96 02/08/22 05:54 70 19 87/60 L 93 02/08/22 04:40 64 18 94/69 L 95 02/08/22 01:16 67 18 123/62 99 02/07/22 21:25 37.2 C 68 20 123/82 100 O2 Del Method 02/08/22 06:27 Room Air 02/08/22 05:54 Room Air 02/08/22 04:40 Room Air 02/08/22 01:16 Room Air 02/07/22 21:25 Room Air PG Care Time/CCT Total # of Minutes Spent Total Time Spent with Patient: Total time spent is greater than 50% in coordination of care (as documented) at patient's floor/unit and/or counseling patient: Coding Level of Care Code 36638 Inpt Consult Level 5 Diagnoses Left ureteral stone N20.1 Left flank pain R10.9
[2022-02-08] MEDS ORDERED: ONDANSETRON INJ 2 MG/ML 2 ML VIAL ONE (08:32)
[2022-02-08] MEDS ORDERED: fentaNYL citrate 100 MCG/2 ML VIAL ONE (08:32)
[2022-02-08] MEDS ORDERED: PROPOFOL IV EMULSION 10 MG/ML 20 ML VIAL IV ONE ×2 (08:32→09:36)
[2022-02-08] MEDS ORDERED: GLYCOPYRROLATE 0.2 MG/ML VIAL ONE (08:32)
[2022-02-08] MEDS ORDERED: KETAMINE 50 MG/5 ML SYRINGE ONE (08:33)
[2022-02-08] MEDS ORDERED: MIDAZOLAM HCL 1 MG/ML 2ML VIAL ONE (08:33)
[2022-02-08 08:36] LABS: Pregnancy Test, Urine Negative (Negative)
[2022-02-08 08:44] LABS: Anion Gap 8 (3-11); Calcium 7.4 mg/dl (8.5-10.1); Carbon Dioxide 14 mmol/L (21-32); Chloride 115 mmol/L (98-107); Creatinine Clr Calc Pharmacy 67.2 ml/min; Est GFR (African American) 71.5 ml/min; Est GFR (Non-African American) 61.7 ml/min; Glucose 100 mg/dl (70-99(Fasting)); Magnesium 1.6 mg/dl (1.7-2.4); Sodium 137 mmol/L (136-145)
[2022-02-08] MEDS ORDERED: fentaNYL citrate 100 MCG/2 ML VIAL IV PRN (08:54)
[2022-02-08] MEDS ORDERED: ePHEDrine sulfate 50 MG/ML AMP IV PRN (08:54)
[2022-02-08] MEDS ORDERED: ONDANSETRON INJ 2 MG/ML 2 ML VIAL IV PRN (08:54)
[2022-02-08] MEDS ORDERED: ATROPINE SULFATE 0.1 MG/ML 10ML SYR IV PRN (08:54)
[2022-02-08] MEDS ORDERED: PROMETHAZINE HCL 6.25 MG in SODIUM CHLORIDE 0.9% 50 ML IV PRN (08:54)
--- NOTE | 2022-02-08 08:54 | Anesthesiology Consultation ---
Date of Service February 08, 2022 Assessment & Plan (1) Encounter for pre-operative examination: Chart Review Chart Review: Acceptable Risk for Surgery and Patient NOT seen in Pre Admission Testing Consults Requested none History Surgery Operation Date: 02/08/22 08:50 Proposed Procedures p Cystoscopy, Left Stent Insertion - Zaheer Pulido MD Height/Weight Height: 5 ft 3 in Weight: 89.5 kg Allergies Allergy/AdvReac Type Severity Reaction Status Date / Time hydromorphone [From Dilaudid] Allergy Unknown CAN'T Verified 02/08/22 01:00 REMEMBER meperidine AdvReac Severe SEIZURE Verified 02/08/22 01:00 A CHILD Medications Home Medications Medication Instructions Recorded Confirmed Last Taken conj estrogen-medroxyprogesterone 1 tab PO HS 12/10/20 02/08/22 08/14/21 0.45 mg-1.5 mg tablet (Prempro) lidocaine 5 % topical patch 1 patch topical DAILY PRN Pain 12/10/20 02/08/22 11/26/20 trazodone 100 mg tablet 200 mg PO HS 12/10/20 02/08/22 08/14/21 diclofenac sodium 75 mg 75 mg PO BID PRN Pain, Severe 08/16/21 02/08/22 Unknown tablet,delayed release phentermine 37.5 mg tablet 37.5 mg PO DAILY 08/16/21 02/08/22 08/15/21 metoprolol succinate 25 mg 25 mg PO DAILY PRN PVC'S 02/08/22 02/08/22 Unknown tablet,extended release 24 hr naltrexone 50 mg tablet 12.5 mg PO DAILY 02/08/22 02/08/22 Unknown omeprazole 20 mg tablet,delayed 20 mg PO DAILY PRN Heartburn 02/08/22 02/08/22 Unknown release spironolactone 100 mg tablet 100 mg PO QAM 02/08/22 02/08/22 Unknown topiramate 50 mg tablet 50 mg PO DAILY 02/08/22 02/08/22 Unknown Active Medications Generic Name Dose Route Start Last Admin Trade Name Freq PRN Reason Stop Dose Admin Acetaminophen 650 mg 02/08/22 03:07 02/08/22 04:20 Acetaminophen 325 Mg Tab PO 03/10/22 03:06 650 mg Q4H PRN Administration pain/fever Ceftriaxone Sodium 2,000 mg/ 70 mls @ 140 mls/hr 02/08/22 04:00 02/08/22 04:59 Dextrose IV 02/18/22 03:59 Infused Q24H TANIA Infusion Protocol Sodium Chloride 1,000 mls @ 125 mls/hr 02/08/22 03:07 02/08/22 04:18 Nss 1000ml IV 03/10/22 03:06 125 mls/hr .Q8H TANIA Administration Sodium Chloride 500 mls @ 500 mls/hr 02/08/22 08:00 02/08/22 07:51 Nss IV 02/08/22 08:59 500 mls/hr .Q1H TANIA Administration Ketorolac Tromethamine 15 mg 02/08/22 03:07 02/08/22 07:42 Ketorolac Tromethamine 15 Mg/Ml Vial IV 02/13/22 03:06 15 mg Q6H PRN Administration Moderate Pain Morphine Sulfate 3 mg 02/08/22 03:07 02/08/22 05:34 Morphine Sulfate 4 Mg/Ml 1 Ml Carp\Vial IV 02/22/22 03:06 3 mg Q3H PRN Administration Pain Past Medical History Medical History Symptoms of urinary tract infection UTI (urinary tract infection) Past Family History Family History Other No significant family history Past Surgical History Surgical History No significant past surgical history Social History Smoking Status: Never smoker Do You Dip or Chew Tobacco: No Hx Alcohol Use: Yes alcohol intake frequency: holidays/special occasions only Hx Substance Use: No substance use type: does not use Physical Exam Vital Signs Last Vital Signs Temp 98.2 F 02/08/22 06:27 Pulse 64 02/08/22 06:27 Resp 18 02/08/22 06:27 BP 88/62 L 02/08/22 06:27 Pulse Ox 96 02/08/22 06:27 O2 Del Method 02/08/22 06:27 Testing Laboratory Results 02/08/22 07:36 02/08/22 07:36 Urine Color Yellow 02/08/22 04:16 Urine Appearance Clear (Clear) 02/08/22 04:16 Urine pH 6.5 (4.5-7.5) 02/08/22 04:16 Ur Specific Omro 1.018 (1.000-1.030) 02/08/22 04:16 Urine Protein Negative (Negative) 02/08/22 04:16 Urine Glucose (UA) Negative (Negative) 02/08/22 04:16 Urine Ketones 2+ (Negative) H 02/08/22 04:16 Urine Nitrite Negative (Negative) 02/08/22 04:16 Ur Leukocyte Esterase Trace (Negative) H 02/08/22 04:16 Urine WBC (Auto) 5-10 /hpf (0-5) H 02/08/22 04:16 Urine RBC (Auto) 0-4 /hpf (0-4) 02/08/22 04:16 U Hyaline Cast (Auto) 1-5 /lpf (0-5) 02/08/22 04:16 U Epithel Cells (Auto) >30 /lpf (0-5) H 02/08/22 04:16 Urine Bacteria (Auto) Negative (Negative) 02/08/22 04:16 Urine Test Negative (Negative) 02/08/22 04:16 02/08/22 04:16 Urine Test Negative Electrocardiogram Date: 02/07/22 Findings: + NSR @
--- NOTE | 2022-02-08 09:43 | Operative Report ---
PG Post Operative Report Pre & Post Diagnosis Operation Date: 02/08/22 08:50 Pre-Op Diagnosis: Left ureteral stone Post-Op Diagnosis: Left ureteral stone I identified the patient and participated in the time-out.: Yes Procedure Operation Date: 02/08/22 08:50 Actual Procedures p Cystoscopy, Left Ureteral Stent Placement(Left) - Zaheer Pulido MD Surgeon Zaheer Pulido MD Sanitary Landfill Supervisor none Estimated Blood Loss 0 Findings Consistent with Post-Op Diagnosis Specimens none Description of Procedure The patient was identified in the preoperative holding area, appropriate informed consents were reviewed and completed and the patient was transferred to the operative suite. Upon arrival, appropriate antibiotics and anesthesia were administered and the patient was placed in dorsal lithotomy position and prepped and draped in sterile fashion. Begin the case I passed a 22 Danish cystoscope with 30 degree lens. Inspection revealed a healthy-appearing bladder. The left UO was cannulated with a sensor wire and there was an immediate discharge of bloody urine. After draining the system I advanced a 6 x 24 cm double-J stent seeing a good curl in the kidney as well as the bladder. I emptied the bladder and concluded the case. She was reversed in position taken to the recovery room in stable condition. I attest to the content of the Intraoperative Record and any orders documented therein. Any exceptions are noted below.
--- NOTE | 2022-02-08 10:01 | Anesthesiology Progress Note ---
Date of Service February 08, 2022 Anesthesia Post Procedure Vital Signs Vital Signs: Temp Pulse Pulse Resp BP BP Pulse Ox 02/08/22 09:55 76 14 87/56 L 100 02/08/22 09:47 97.2 F L 79 13 98/60 L 100 02/08/22 09:12 98.2 F 64 20 85/57 L 100 02/08/22 06:27 98.2 F 64 18 88/62 L 96 02/08/22 05:54 70 19 87/60 L 93 02/08/22 04:40 64 18 94/69 L 95 02/08/22 01:16 67 18 123/62 99 02/07/22 21:25 99.0 F 68 20 123/82 100 O2 Del Method O2 Flow Rate 02/08/22 09:55 Oxymask 02/08/22 09:47 Oxymask 02/08/22 09:12 Room Air 02/08/22 06:27 Room Air 02/08/22 05:54 Room Air 02/08/22 04:40 Room Air 02/08/22 01:16 Room Air 02/07/22 21:25 Room Air Pain Intensity Left Lower Abdomen: Pain Intensity: 8 Transfer of Care Handoff Completed per policy Notes Mental Status: alert / awake / arousable and participated in evaluation Patient Amnestic to Procedure: Yes Nausea / Vomiting: adequately controlled Pain: adequately controlled and improving with treatment Airway Patency, RR, SpO2: stable & adequate BP & HR: stable & adequate Hydration State: stable & adequate Anesthetic Complications: no major complications apparent and Pt Satisfied with anesthetic care
[2022-02-08] MEDS: TOPIRAMATE 50 MG TAB PO SCH (10:30)
[2022-02-08] MEDS ORDERED: KETOROLAC 30 MG/ML VIAL ONE (10:40)
[2022-02-08 11:17] LABS: Calcium 7.7 mg/dl (8.5-10.1)
[2022-02-08 12:12] LABS: Hematocrit (blood only) 39.5 % (34.1-44.9); Hemoglobin 12.3 g/dl (12.0-16.0); Mean Corpuscular Hemoglobin 30.1 pg (25.0-34.0); Mean Corpuscular Hgb Conc 31.1 g/dL (32.0-36.0); Mean Corpuscular Volume 96.6 fL (80.0-100.0); Mean Platelet Volume 11.2 fL (9.4-12.3); Platelet Count 108 K/uL (130-400); RDW Standard Deviation 46.3 fL (36.4-46.3); Red Blood Count 4.09 M/uL (3.93-5.22); White Blood Count 9.66 K/ul (4.8-10.8)
[2022-02-08] MEDS ORDERED: MoRPHine SULFATE 10 MG/ML CARP/VIAL IV STA (12:58)
[2022-02-08] MEDS ORDERED: ACETAMINOPHEN 1000 MG/100 ML IV IV ONE (13:07)
[2022-02-08 13:08] LABS: Basophils # (auto) 0.02 K/uL (0-0.2); Basophils % (auto) 0.2 %; Eosinophils # (auto) 0.03 K/uL (0-0.50); Eosinophils % (auto) 0.3 %; Immature Granulocytes # (auto) 0.02 K/uL (0.00-0.02); Immature Granulocytes % (auto) 0.2 %; Lymphocytes # (auto) 1.62 K/uL (1.2-3.4); Lymphocytes % (auto) 16.8 %; Monocytes % (auto) 8.3 %; Neutrophils # (auto) 7.17 K/uL (1.4-6.5); Neutrophils % (auto) 74.2 %; Platelet Estimate Decreased (Normal)
--- NOTE | 2022-02-08 13:20 | Fluoroscopy Report ---
FL KUB CLINICAL HISTORY: STENT PLACEMENT LT COMPARISON STUDY: CT of the abdomen and pelvis February 07, 2022. FLUOROSCOPY TIME: 7 seconds. FLUOROSCOPIC IMAGES: 2 FINDINGS: Fluoroscopy was provided during left ureteral stent placement. Proximal aspect of the stent projects over the left collecting system. Distal aspect projects over the bladder. IMPRESSION: Fluoroscopy provided during left ureteral stent placement. ACT 112: Negative or not required by law. Electronically signed by: Abiodun Antunez M.D. 02/08/2022 1:18 PM
[2022-02-08] MEDS: KETOROLAC TROMETHAMINE 15 MG/ML VIAL IV PRN (18:17)
--- NOTE | 2022-02-08 18:43 | Hospitalist Progress Note ---
Date of Service February 08, 2022 Assessment & Plan (1) Left ureteral stone: Plan: Admitted with abdominal pain and noted to have Left ureteric stone with mild hydronephrosis Status post cystoscopy with left ureteral stent placement Appreciate urology input and recommendation We will continue pain medications as needed (2) Left flank pain: Plan: Secondary to ureteric stone Still having lots of pain Intravenous Toradol and Tylenol has been advised Avoidance of narcotic pain medication due to low blood pressure She has been getting enough IV fluid (3) PVCs (premature ventricular contractions): Plan: History of premature ventricular contractions Has been on beta-jeanie Heart rate remains around 58 Denies any cardiac symptoms Has been getting intravenous fluid for low blood pressure Admission and Anticipated Discharge Date Admission Date: February 08, 2022 Subjective 02/08/2022 The patient was seen and examined in emergency room She is status post cystoscopy with left ureteral stent placement Has been complaining of severe pain not relieved with intravenous Toradol Blood pressure remains on the lower side so the use of narcotics have been minimized No fever and or chills Review of Systems Review of Systems: All systems reviewed and are unremarkable except as noted below Physical Exam Physical Exam: Lying in bed with acute distress due to abdominal pain Constitutional: well developed, well nourished, + ill appearing and + obese Eyes: PERRL, conjunctivae normal, anicteric sclerae ENMT: external ear and nose normal, oropharynx normal Neck: trachea midline, no thyromegaly Respiratory: no respiratory distress Auscultation: + diminished lung sounds; no crackles Cardiovascular: Rate/Rhythm: regular rate, regular rhythm and + bradycardic Extremities: no edema Gastrointestinal (Abdomen): Inspection/Auscultation: normal bowel sounds; abdomen not distended Percussion/Palpation: + abdomen tender (All over) and abdomen soft Musculoskeletal: No acute arthritis in any joint Neurologic: normal touch/pain/proprioception and moves all extremities; no focal motor deficits Psychiatric: A+Ox3, euthymic affect Lymphatic: no cervical or axillary lymphadenopathy Results & Data Results & Data ([facility]) Vital Signs (Past 12 Hours) Vital Signs Temp Pulse Pulse Resp BP BP Pulse Ox 02/08/22 18:30 58 L 13 97 02/08/22 18:30 102/67 02/08/22 18:20 55 L 19 100 02/08/22 18:20 116/68 02/08/22 18:10 68 18 98 02/08/22 18:03 70 17 100 02/08/22 18:03 93/61 L 02/08/22 18:00 62 15 99 02/08/22 18:00 90/54 L 02/08/22 17:50 61 14 96 02/08/22 17:40 57 L 14 100 02/08/22 17:30 58 L 13 98 02/08/22 17:30 83/57 L 02/08/22 17:20 60 15 95 02/08/22 17:10 59 L 14 98 02/08/22 17:00 57 L 16 98 02/08/22 17:00 90/59 L 02/08/22 16:50 60 16 97 02/08/22 16:40 72 14 99 02/08/22 16:30 58 L 19 80 L 02/08/22 16:30 86/62 L 02/08/22 16:29 64 26 H 99 02/08/22 16:29 94/58 L 02/08/22 16:20 56 L 12 99 02/08/22 16:17 82/52 L 02/08/22 16:17 53 L 11 L 98 02/08/22 16:16 53 L 9 L 100 02/08/22 16:06 60 15 98 02/08/22 16:06 95/65 L 02/08/22 16:00 62 14 98 02/08/22 16:00 104/76 02/08/22 15:50 59 L 15 94 02/08/22 15:40 56 L 15 96 02/08/22 15:30 65 18 98 02/08/22 15:30 95/60 L 02/08/22 15:20 60 15 93 02/08/22 15:10 61 16 94 02/08/22 15:00 64 15 98 02/08/22 15:00 88/58 L 02/08/22 14:50 59 L 14 95 02/08/22 14:40 61 19 97 02/08/22 14:30 57 L 14 96 02/08/22 14:30 93/57 L 02/08/22 14:20 58 L 14 95 02/08/22 14:10 57 L 13 96 02/08/22 14:01 59 L 20 98 02/08/22 14:01 87/42 L 02/08/22 14:00 66 15 98 02/08/22 13:50 60 14 94 02/08/22 13:40 59 L 16 97 02/08/22 13:30 58 L 13 95 02/08/22 13:30 90/60 L 02/08/22 13:20 60 12 95 02/08/22 13:10 55 L 12 100 02/08/22 13:00 53 L 19 100 02/08/22 13:00 85/57 L 02/08/22 12:50 66 17 100 02/08/22 12:47 69 18 98 02/08/22 12:47 82/57 L 02/08/22 12:40 77 18 99 02/08/22 12:49 62 17 82/57 L 100 02/08/22 10:10 78 17 102/62 98 02/08/22 10:15 72 13 103/63 96 02/08/22 10:05 36.3 C L 72 12 85/57 L 99 02/08/22 09:55 76 14 87/56 L 100 02/08/22 09:47 36.2 C L 79 13 98/60 L 100 02/08/22 09:12 36.8 C 64 20 85/57 L 100 O2 Del Method O2 Flow Rate 02/08/22 18:30 02/08/22 18:30 02/08/22 18:20 02/08/22 18:20 02/08/22 18:10 02/08/22 18:03 02/08/22 18:03 02/08/22 18:00 02/08/22 18:00 02/08/22 17:50 02/08/22 17:40 02/08/22 17:30 02/08/22 17:30 02/08/22 17:20 02/08/22 17:10 02/08/22 17:00 02/08/22 17:00 02/08/22 16:50 02/08/22 16:40 02/08/22 16:30 02/08/22 16:30 02/08/22 16:29 02/08/22 16:29 02/08/22 16:20 02/08/22 16:17 02/08/22 16:17 02/08/22 16:16 02/08/22 16:06 02/08/22 16:06 02/08/22 16:00 02/08/22 16:00 02/08/22 15:50 02/08/22 15:40 02/08/22 15:30 02/08/22 15:30 02/08/22 15:20 02/08/22 15:10 02/08/22 15:00 02/08/22 15:00 02/08/22 14:50 02/08/22 14:40 02/08/22 14:30 02/08/22 14:30 02/08/22 14:20 02/08/22 14:10 02/08/22 14:01 02/08/22 14:01 02/08/22 14:00 02/08/22 13:50 02/08/22 13:40 02/08/22 13:30 02/08/22 13:30 02/08/22 13:20 02/08/22 13:10 02/08/22 13:00 02/08/22 13:00 02/08/22 12:50 02/08/22 12:47 02/08/22 12:47 02/08/22 12:40 02/08/22 12:49 Room Air 02/08/22 10:10 Room Air 02/08/22 10:15 Room Air 02/08/22 10:05 Room Air 02/08/22 09:55 Oxymask 02/08/22 09:47 Oxymask 02/08/22 09:12 Room Air Laboratory Results Short CBC 02/07/22 02/08/22 02/08/22 Range/Units 22:05 07:36 10:32 WBC 11.28 H Cancelled 9.66 (4.8-10.8) K/ul Hgb 14.5 Cancelled 12.3 (12.0-16.0) g/dl Hct 41.9 Cancelled 39.5 (34.1-44.9) % Plt Count 298 Cancelled 108 L D (130-400) K/uL BMP 02/07/22 02/08/22 02/08/22 22:05 07:36 10:32 Sodium 138 137 Potassium 3.8 4.0 Chloride 105 115 H Carbon Dioxide 21 14 L 19 L BUN 18 TNP 14 Creatinine 1.02 1.04 Glucose 118 H 100 H Calcium 9.6 7.4 L D 7.7 L Liver Function 02/07/22 Range/Units 22:05 Total Bilirubin 0.5 (0.2-1.0) mg/dl AST 15 (13-39) U/L ALT 14 (7-52) U/L Alkaline Phosphatase 70 (34-104) U/L Albumin 4.3 (3.4-5.0) gm/dl Urine 02/08/22 Range/Units 04:16 Urine Color Yellow Urine Appearance Clear (Clear) Urine pH 6.5 (4.5-7.5) Ur Specific Shepherd 1.018 (1.000-1.030) Urine Protein Negative (Negative) Urine Glucose (UA) Negative (Negative) Medications Administered Current Inpatient Medications Acetaminophen (Acetaminophen 325 Mg Tab) 650 mg PO Q4H PRN PRN Reason: pain/fever Stop: 03/10/22 03:06 Last Admin: 02/08/22 04:20 Dose: 650 mg Acetaminophen (Acetaminophen 1000 Mg/100 Ml Iv) 1,000 mg IV Q8H PRN PRN Reason: Pain Stop: 02/11/22 13:07 Ceftriaxone Sodium 2,000 mg/ (Dextrose) 70 mls @ 140 mls/hr IV Q24H [facility]; Protocol Stop: 02/18/22 03:59 Last Infusion: 02/08/22 04:59 Dose: Infused Sodium Chloride (Nss 1000ml) 1,000 mls @ 125 mls/hr IV .Q8H [facility] Stop: 03/10/22 03:06 Last Admin: 02/08/22 12:21 Dose: 125 mls/hr Ketorolac Tromethamine (Ketorolac Tromethamine 15 Mg/Ml Vial) 30 mg IV Q6H PRN PRN Reason: Moderate Pain Stop: 02/13/22 03:06 Last Admin: 02/08/22 18:17 Dose: 30 mg Lidocaine (Lidocaine 5% 1 Patch) 1 patch TD DAILY@0900 PRN PRN Reason: Pain Stop: 03/10/22 03:06 Metoprolol Succinate (Metoprolol Succ 25mg Ext Rel Tab) 25 mg PO DAILY PRN PRN Reason: PVC'S Stop: 03/10/22 03:06 Miscellaneous (Remove Lidoderm Patch) 1 each N/A DAILY@2100 [facility] Stop: 03/10/22 20:59 Morphine Sulfate (Morphine Sulfate 4 Mg/Ml 1 Ml Carp\Vial) 3 mg IV Q3H PRN PRN Reason: Pain Stop: 02/22/22 03:06 Last Admin: 02/08/22 18:37 Dose: 3 mg Ondansetron HCl (Ondansetron Inj 2 Mg/Ml 2 Ml Vial) 4 mg IV Q6H PRN PRN Reason: Nausea Stop: 03/10/22 03:06 Pantoprazole Sodium (Pantoprazole 40 Mg Tab) 40 mg PO DAILY PRN PRN Reason: Heartburn Topiramate (Topiramate 50 Mg Tab) 50 mg PO DAILY TANIA Stop: 03/10/22 08:59 Last Admin: 02/08/22 10:30 Dose: Not Given Trazodone HCl (Trazodone Hcl 100 Mg Tab) 200 mg PO HS [facility] Stop: 03/10/22 20:59
[2022-02-08] MEDS ORDERED: PHENAZOPYRIDINE HCL 100 MG TAB PO PRN (19:25)
[2022-02-08] MEDS: ACETAMINOPHEN 1000 MG/100 ML IV IV PRN (21:00)
[2022-02-08] MEDS: traZODone HCL 100 MG TAB PO SCH (21:43)
[2022-02-08] MEDS ORDERED: PHENAZOPYRIDINE HCL 100 MG TAB PO STA (21:52)
[2022-02-08] MEDS ORDERED: KETOROLAC TROMETHAMINE 15 MG/ML VIAL IV ONE (21:52)
[2022-02-09] MEDS: SODIUM CHLORIDE 0.9% 1000ML 1,000 ML IV SCH (00:01)
[2022-02-09] MEDS ORDERED: SODIUM CHLORIDE 0.9% 1000ML 1,000 ML IV ONE (01:38)
[2022-02-09] MEDS ORDERED: KETOROLAC TROMETHAMINE 15 MG/ML VIAL IV ONE (01:38)
[2022-02-09] MEDS: cefTRIAXone SODIUM 2,000 MG in DEXTROSE 5% 50 ML IV SCH (02:56)
[2022-02-09] MEDS: MoRPHine SULFATE 4 MG/ML 1 ML CARP\\VIAL IV PRN ×4 (04:35→19:26)
[2022-02-09 04:37] LABS: Basophils # (auto) 0.01 K/uL (0-0.2); Basophils % (auto) 0.1 %; Eosinophils # (auto) 0.08 K/uL (0-0.50); Hematocrit (blood only) 38.1 % (34.1-44.9); Hemoglobin 12.1 g/dl (12.0-16.0); Immature Granulocytes # (auto) 0.03 K/uL (0.00-0.02); Immature Granulocytes % (auto) 0.4 %; Lymphocytes # (auto) 0.52 K/uL (1.2-3.4); Lymphocytes % (auto) 6.3 %; Mean Corpuscular Hemoglobin 29.2 pg (25.0-34.0); Mean Corpuscular Hgb Conc 31.8 g/dL (32.0-36.0); Mean Platelet Volume 11.9 fL (9.4-12.3); Monocytes # (auto) 0.39 K/uL (0.24-0.82); Monocytes % (auto) 4.7 %; Neutrophils # (auto) 7.27 K/uL (1.4-6.5); Neutrophils % (auto) 87.5 %; Platelet Count 207 K/uL (130-400); RDW Coefficient of Variation 13.2 % (11.5-14.5); RDW Standard Deviation 44.6 fL (36.4-46.3); Red Blood Count 4.14 M/uL (3.93-5.22)
[2022-02-09 04:47] LABS: Partial Thromboplastin Ratio 1.1; Partial Thromboplastin Time 30.5 Seconds (21.0-31.0)
[2022-02-09 05:04] LABS: Troponin I High Sensitivity 6.1 pg/ml (0-14)
[2022-02-09 05:07] LABS: Calcium 7.6 mg/dl (8.5-10.1); Creatinine Clr Calc Pharmacy 87.3 ml/min; Est GFR (African American) 98.2 ml/min; Est GFR (Non-African American) 84.8 ml/min; Magnesium 1.6 mg/dl (1.7-2.4); Potassium 3.3 mmol/L (3.5-5.1)
[2022-02-09] MEDS ORDERED: MAGNESIUM SULFATE / D5W 1 GM/100 ML BAG IV ONE (05:21)
[2022-02-09] MEDS ORDERED: POTASSIUM CHLORIDE CRTAB 20 MEQ TABCR PO STA ×2 (05:21→22:51)
[2022-02-09] MEDS ORDERED: SODIUM CHLORIDE 0.45 % 1,000 ML IV ONE (05:24)
[2022-02-09] MEDS ORDERED: OPTIRAY 320 125ml IV ONE (06:36)
--- NOTE | 2022-02-09 06:51 | XRay Report ---
XR chest 1V portable CLINICAL HISTORY: Atypical chest pain. COMPARISON STUDY: Chest radiograph August 13, 2019. FINDINGS: There is no pneumothorax. Pulmonary vascular congestion is noted. Mild bibasilar opacities are noted. No pleural effusion is identified. Cardiac size is within normal limits. Chronic deformity of the left humeral diaphysis is incidentally noted. IMPRESSION: Pulmonary vascular congestion with mild bibasilar opacities which could reflect atelectasis or consol idation. ACT 112: Negative or not required by law. Electronically signed by: Abiodun Antunez M.D. 02/09/2022 6:50 AM
--- NOTE | 2022-02-09 07:13 | CT Scan Report ---
CT ANGIOGRAPHY OF THE CHEST, PULMONARY EMBOLUS PROTOCOL CLINICAL HISTORY: Atypical chest pain. Fever. COMPARISON STUDY: Chest radiograph performed earlier today. TECHNIQUE: Following IV administration of 119 mL of Optiray, helical axial images of the chest were o btained utilizing the pulmonary embolus protocol. Maximal intensity projections and sagittal and cor onal reformats were viewed on an independent 3D workstation. IV contrast was administered without co mplication. Automated exposure control was utilized for the study. A dose lowering technique was ut ilized adhering to the principles of ALARA. CT DOSE: 754.73 mGy.cm FINDINGS: No pulmonary emboli are identified. There is no thoracic aortic dissection. Cardiac size i s at upper limits of normal. There is no pericardial effusion. There is slight dilatation of the cent ral pulmonary arteries. No pneumothorax is present. Small bilateral pleural effusions have developed since abdominal CT of February 17, 2022. Interlobular septal thickening is noted. Mild right lower lobe airspace opacity is noted. There are additional groundglass opacities. Mild stranding within the med iastinum may be related to volume overload. IMPRESSION: 1. No pulmonary emboli identified. 2. Mild interstitial pulmonary edema with small bilateral pleural effusions. Ground glass and patchy airspace opacities may reflect alveolar edema or a superimposed infectious process. 3. Borderline cardiomegaly. ACT 112: Negative or not required by law. Electronically signed by: Abiodun Antunez M.D. 02/09/2022 7:10 AM
[2022-02-09] MEDS: ACETAMINOPHEN 325 MG TAB PO PRN ×2 (07:57→15:39)
[2022-02-09] MEDS ORDERED: STAT IV STA (07:58)
[2022-02-09] MEDS ORDERED: CALCIUM GLUCONATE 10% 1,000 MG in DEXTROSE 5% 50 ML IV ONE (08:15)
--- NOTE | 2022-02-09 08:21 | Urology Progress Note ---
Date of Service February 09, 2022 Assessment & Plan (1) Left ureteral stone: (2) Left flank pain: Plan 51yo F admitted with left renal colic secondary to an obstructing 5mm L UPJ stone. - POD #1 s/p Cystoscopy, Left Ureteral Stent Placement - Febrile this morning at 38.5C, normotensive - Labs reviewed-WBC 8.30, creatinine 0.80. - UA on admission not overly suspicious for infection; Blood cultures pending. - Continues on IV ceftriaxone, follow cultures. - Voiding spontaneously, output appears adequate. Continue to monitor. - Continue supportive care, antibiotic therapy, and pain management. - Urology will follow. Admission and Anticipated Discharge Date Admission Date: February 08, 2022 Subjective Patient examined at bedside this AM. Asleep on arrival, awakened to name. Reports she is still feeling poorly. Febrile this morning at 38.5C, Tylenol given per nursing. Still with left flank pain. The use of narcotic pain medication has been minimized due to her low blood pressures. She did have some morphine earlier this morning. Currently rates pain 7/10. Voiding spontaneously, notes some hematuria/dysuria. No nausea or vomiting. Review of Systems Constitutional: as per Subjective / HPI Gastrointestinal: as per Subjective / HPI Genitourinary: as per Subjective / HPI Physical Exam Constitutional: + ill appearing Fatigued Respiratory: no respiratory distress and no labored breathing Gastrointestinal (Abdomen): Percussion/Palpation: + abdomen tender (Left side) and abdomen soft Neurologic: awake Psychiatric: Orientation: alert and oriented x 3 Results & Data ([facility]) Vital Signs (Past 12 Hours) Vital Signs Temp Pulse Pulse Resp BP BP Pulse Ox 02/09/22 07:14 38.5 C H 87 16 134/71 93 02/09/22 04:41 36.5 C 80 18 111/63 94 02/09/22 02:59 86 94/60 L 02/09/22 01:43 60/37 L 02/08/22 22:23 36.3 C L 58 L 18 86/58 L 98 02/08/22 21:31 89/60 L O2 Del Method 02/09/22 07:14 Room Air 02/09/22 04:41 Room Air 02/09/22 02:59 02/09/22 01:43 02/08/22 22:23 Room Air 08/10/22 21:31 PG Care Time/CCT Total # of Minutes Spent Total Time Spent with Patient: Total time spent is greater than 50% in coordination of care (as documented) at patient's floor/unit and/or counseling patient: Coding Level of Care Code 78411 Subseq Hosp Care Lvl 2 Diagnoses Left ureteral stone N20.1 Left flank pain R10.9
[2022-02-09] MEDS: TOPIRAMATE 50 MG TAB PO SCH (09:13)
[2022-02-09] MEDS: oxyCODONE HCL IR 5 MG TAB (IMMEDIATE RELEASE) PO PRN (11:10)
[2022-02-09] MEDS: PHENAZOPYRIDINE HCL 200 MG TAB PO PRN (11:10)
[2022-02-09] MEDS: ONDANSETRON INJ 2 MG/ML 2 ML VIAL IV PRN (14:56)
[2022-02-09] MEDS: PIPERACILLIN/TAZOBACTAM 4.5 GM in DEXTROSE 5% 100 ML IV SCH (17:00)
[2022-02-09] MEDS: KETOROLAC TROMETHAMINE 15 MG/ML VIAL IV PRN (17:26)
--- NOTE | 2022-02-09 18:13 | Hospitalist Progress Note ---
Date of Service February 09, 2022 Assessment & Plan (1) Left ureteral stone: Plan: Left ureteric stone with mild hydronephrosis S/P cystoscopy with left ureteral stent placement --CT ABD:Obstructive nephrolithiasis in the left proximal ureter with associated mild hydronephrosis. Appreciate urology input and recommendation Pain control Needs follow-up with urology upon discharge (2) Left flank pain: Plan: Management as above Fever Unclear source of Infection Blood cultures pending Urine analysis not suggestive of UTI CT abdomen as above CTA No pulmonary emboli identified. Mild interstitial pulmonary edema with small bilateral pleural effusions. Ground glass and patchy airspace opacities may reflect alveolar edema or a superimposed infectious process. Borderline cardiomegaly. IV Rocephin broadened to Zosyn Continue IV fluids as needed Normal lactate levels Check procalcitonin Electrolyte abnormalities Hypocalcemia, hypomagnesemia, hypokalemia Replete electrolytes as needed (3) PVCs (premature ventricular contractions): Plan: History of premature ventricular contractions Has been on beta-jeanie as needed Monitor DVT Px: SCDs for now Encouraged to ambulate CODE STATUS Full code Admission and Anticipated Discharge Date Admission Date: February 08, 2022 Subjective Patient is seen and examined at bedside Febrile associated with chills this morning Also reported nausea, left flank pain and dysuria Denies any chest pain, shortness of breath Offers no other complaints Review of Systems Review of Systems: All systems reviewed & are unremarkable except as noted in Subjective Physical Exam Physical Exam: Physical Exam: Vitals signs as noted above General Appearance:Obese, built and nourished, no apparent distress Head: normocephalic, Atraumatic Eyes: normal inspection, EOMI Neck: supple, Trachea midline Respiratory/Chest: Normal breath sounds, CTA, No accessory muscle use Cardiovascular: S1, S2, No murmur Abdomen/GI:Soft, Left tender, Bowel sounds present Extremities/Musculoskeletal:normal inspection, no edema Neurologic/Psych:AAOX3, grossly no focal neurological deficits Skin: normal color, warm Results & Data Results & Data ([facility]) Vital Signs (Past 12 Hours) Vital Signs Temp Pulse Resp BP Pulse Ox O2 Del Method 02/09/22 17:06 36.7 C 02/09/22 15:19 39.3 C H 93 H 20 98/64 L 92 Room Air 02/09/22 14:24 36.9 C 131/75 02/09/22 11:09 37.9 C H 110/70 02/09/22 07:45 Room Air 02/09/22 07:14 38.5 C H 87 16 134/71 93 Room Air Laboratory Results Short CBC 02/09/22 Range/Units 03:51 WBC 8.30 (4.8-10.8) K/ul Hgb 12.1 (12.0-16.0) g/dl Hct 38.1 (34.1-44.9) % Plt Count 207 D (130-400) K/uL BMP 02/09/22 03:51 Sodium 143 Potassium 3.3 L Chloride 117 H Carbon Dioxide 22 BUN 8 Creatinine 0.80 Glucose 116 H Calcium 7.6 L
[2022-02-09] MEDS ORDERED: POLYETHYLENE (MIRALAX) 17 GM PACK PO PRN (20:37)
[2022-02-09] MEDS ORDERED: POLYETHYLENE (MIRALAX) 17 GM PACK PO STA (20:37)
[2022-02-09] MEDS ORDERED: ALBUMIN 25% 100 mL 25 GM/100 ML VIAL IV ONE (20:45)
[2022-02-09] MEDS: ACETAMINOPHEN 1000 MG/100 ML IV IV PRN (21:27)
[2022-02-09] MEDS: traZODone HCL 100 MG TAB PO SCH (21:34)
[2022-02-09] MEDS: DOCUSATE SODIUM/SENNA 50/8.6MG TAB PO SCH (21:42)
[2022-02-09 22:11] LABS: Albumin Globulin Ratio 1.3 (0.9-2); Albumin Level 2.9 gm/dl (3.4-5.0); BUN Creatinine Ratio 4.3 (10-20); Bilirubin,Total 0.4 mg/dl (0.2-1.0); Calcium 7.8 mg/dl (8.5-10.1); Creatinine Clr Calc Pharmacy 75.9 ml/min; Est GFR (Non-African American) 71.6 ml/min; Globulin 2.3 gm/dl (2.5-4.0); Potassium 3.2 mmol/L (3.5-5.1); Total Protein 5.2 gm/dl (6.0-8.3)
--- NOTE | 2022-02-09 22:58 | Communication Note ---
Date of Service: February 09, 2022 Overnight issues 02/09/22, 830P Made aware by RN of hypotension SBP 70s. Patient dizzy. Patient with abdominal pain not worse than admission. Last BM was 2 days ago. AP Symptomatic hypotension Constipation Midodrine Bowel regimen 02/10/22, 1230AM Abdominal pain worsening and somewhat different as per RN. Back pain going to the front. CT abdomen pelvis initial read: Cholelithiasis. There is mild distention of the gallbladder. These findings are nonspecific, if there is clinical concern for acute cholecystitis consider further evaluation with dedicated gallbladder ultrasound. Afocus of gas in the urinarybladder maybe iatrogenic related to infection. Aleft radiosensitive position. No hydronephrosis. The remaining solid organs are within normal is 2 no bowel obstruction. Diverticulosis. No fracture. Small bilateral pleural effusions. AP Possible cholecystitis N.p.o. Gallbladder ultrasound Will relay to AM provider.
--- NOTE | 2022-02-09 23:08 | Electrocardiogram Report ---
Test Reason : Blood Pressure : / mmHG Vent. Rate : 066 BPM Atrial Rate : 066 BPM P-R Int : 142 ms QRS Dur : 080 ms QT Int : 408 ms P-R-T Axes : 040 087 068 degrees QTc Int : 427 ms Normal sinus rhythm Nonspecific ST abnormality Abnormal ECG When compared with ECG of 10-DEC-2020 14:24, Questionable change in QRS axis ST elevation has replaced ST depression in Inferior leads ST no longer elevated in Lateral leads T wave inversion no longer evident in Inferior leads Confirmed by Tulio Negrete ([id number]) on 02/09/2022 11:07:34 PM Referred By: REFERRED SELF Confirmed By:Tulio Negrete
[2022-02-09] MEDS ORDERED: MIDODRINE HCL 2.5 MG TAB PO STA (23:20)
[2022-02-10] MEDS: oxyCODONE HCL IR 5 MG TAB (IMMEDIATE RELEASE) PO PRN ×2 (00:25→19:55)
[2022-02-10] MEDS: PIPERACILLIN/TAZOBACTAM 4.5 GM in DEXTROSE 5% 100 ML IV SCH ×3 (00:26→17:31)
[2022-02-10] MEDS: PHENAZOPYRIDINE HCL 200 MG TAB PO PRN ×2 (00:45→08:45)
[2022-02-10] MEDS ORDERED: OPTIRAY 300 100mL IV ONE (02:17)
[2022-02-10] MEDS: KETOROLAC TROMETHAMINE 15 MG/ML VIAL IV PRN ×2 (05:27→11:30)
[2022-02-10] MEDS: ONDANSETRON INJ 2 MG/ML 2 ML VIAL IV PRN ×3 (05:27→17:40)
--- NOTE | 2022-02-10 07:26 | CT Scan Report ---
CT OF THE ABDOMEN AND PELVIS WITH CONTRAST CLINICAL HISTORY: Worsening abdominal and flank pain. COMPARISON STUDY: CT of the abdomen and pelvis February 07, 2022. TECHNIQUE: Following IV administration of 83 mL of Optiray, axial images of the abdomen and pelvis we re obtained from the lung bases to the proximal femurs. Images were reviewed in the axial, sagittal, and coronal planes. IV contrast was administered without complication. Automated exposure control wa s utilized for the study. A dose lowering technique was utilized adhering to the principles of ALARA . CT DOSE: 944.73 mGy.cm FINDINGS: Small bilateral pleural effusions are noted within the lower chest. No pneumatosis, free ai r or portal venous gas is present. There are gallstones within the gallbladder. Gallbladder is disten ded. There is mild gallbladder wall thickening. There may be minimal gas within several gallstones. T here is no gas within the gallbladder wall. Spleen, adrenal glands and pancreas are unremarkable. No biliary or pancreatic ductal dilatation is present. There is no evidence for a bowel obstruction. The appendix is normal. Colonic diverticulosis is noted without evidence for acute diverticulitis. Major vasculature is patent. A small amount of gas within the bladder is likely from recent instrumentatio n. A left ureteral stent is in place. Sensitivity for detection of urinary calculi is diminished give n excreted contrast from recent contrast-enhanced chest CT. Left hydronephrosis has resolved. Left-si ded urothelial thickening is noted. There is a 3 mm density within the proximal left ureter on axial image 285 of 491. There is also a 3 mm distal ureteral density shown on axial image 386. Clustered ca lculi within lower pole of the left kidney are better depicted on prior CT. Several of these may be w ithin a calyceal diverticulum. IMPRESSION: 1. Left ureteral stent in place with resolution of left hydronephrosis. 3 mm densities within the pro ximal and distal left ureter, as described above. These could reflect small calculi or fragments. Exc reted contrast could appear similar. 2. Left-sided nephrolithiasis. 3. Cholelithiasis with gallbladder distention and mild gallbladder wall thickening. If right upper qu adrant pain, ultrasound is recommended to exclude acute cholecystitis. 4. Small bilateral pleural effusions. ACT 112: Negative or not required by law. Electronically signed by: Abiodun Antunez M.D. 02/10/2022 7:24 AM
[2022-02-10] MEDS: LIDOCAINE 5% 1 PATCH TD PRN (08:01)
[2022-02-10] MEDS: ACETAMINOPHEN 325 MG TAB PO PRN (08:01)
[2022-02-10] MEDS: MIDODRINE HCL 2.5 MG TAB PO SCH ×3 (08:03→16:07)
[2022-02-10 08:38] LABS: Albumin Level 3.1 gm/dl (3.4-5.0); BUN Creatinine Ratio 4.8 (10-20); Bilirubin,Total 0.4 mg/dl (0.2-1.0); Creatinine Clr Calc Pharmacy 83.2 ml/min; Est GFR (African American) 92.6 ml/min; Est GFR (Non-African American) 79.9 ml/min; Magnesium 1.9 mg/dl (1.7-2.4); Total Protein 5.5 gm/dl (6.0-8.3)
[2022-02-10] MEDS: DOCUSATE SODIUM/SENNA 50/8.6MG TAB PO SCH (08:45)
[2022-02-10] MEDS: TOPIRAMATE 50 MG TAB PO SCH ×2 (08:45→08:47)
--- NOTE | 2022-02-10 09:29 | Urology Progress Note ---
Date of Service February 10, 2022 Assessment & Plan (1) Left ureteral stone: Plan: Left ureteral stone presenting with suspected sepsisstatus post stent placement now She is not progressing particularly well She remains highly symptomatic and does not appear to be tolerating the stent well Unfortunately she is also intermittently mounting fevers This limits her ability to perform any acute intervention safely She has baseline hypotension and continues to struggle with this which is limiting her narcotic use Toradol does not seem to have relieved her symptoms She has AZO ordered Have also added oxybutynin for some bladder spasms Overall I think we simply need to continue supportive care until her infectious type symptoms resolve at which point then we can determine a definitive plan to treat her stones and remove her stent Currently on Zosyn Admission and Anticipated Discharge Date Admission Date: February 08, 2022 Subjective Continues to struggle She has diffuse abdominal painnot simply located in the left but also on the right upper quadrant She has had several studies in the past [address] abdomen pelvis with IV contrast Her stent is in good position she has no significant hydronephrosis or concerning findings from the kidneys There is a question about gallstonesuncertain if this is truly cholecystitis but she is undergoing further evaluation CT chestPE protocol was performed yesterday afternoonno PEs, she does have some pulmonary edema as well as some fluid at the lung bases Febrile yesterday to 39 3, simple pyelonephritis/advanced UTI could certainly give her persistent symptoms Remains somewhat hypotensive but not particularly tachycardic Physical Exam Physical Exam: Uncomfortable appearing Abdomen soft Tender all over but not acute Results & Data ([facility]) Vital Signs (Past 12 Hours) Vital Signs Temp Pulse Resp BP BP Pulse Ox O2 Del Method 02/10/22 08:43 74 89/61 L 02/10/22 07:53 36.7 C 77 18 90/57 L 95 Room Air 02/10/22 00:17 66 119/64 02/09/22 22:48 80 20 72/47 L 94 Room Air 02/09/22 21:30 69 85/57 L PG Care Time/CCT Total # of Minutes Spent Total Time Spent with Patient: Total time spent is greater than 50% in coordination of care (as documented) at patient's floor/unit and/or counseling patient: Coding Level of Care Code 79104 Subseq Hosp Care Lvl 3 Diagnoses Left ureteral stone N20.1
--- NOTE | 2022-02-10 09:36 | Ultrasound Report ---
US gallbladder CLINICAL HISTORY: Abdominal pain. COMPARISON STUDY: CT of the abdomen and pelvis performed earlier today. FINDINGS: There is no biliary ductal dilatation. Common bile duct measures 4 mm in caliber. No hepati c lesions are identified. Pancreas was largely obscured. Multiple gallstones are noted within the gal lbladder. Gallbladder wall is mildly thickened and edematous. No sonographic Guidry sign was elicited . No right hydronephrosis is present. IMPRESSION: 1. Cholelithiasis and mild gallbladder wall thickening. No sonographic Guidry sign. Therefore, the fi ndings are equivocal for acute cholecystitis. A hepatobiliary scan could be obtained as indicated. 2. No biliary ductal dilatation. ACT 112: Negative or not required by law. Electronically signed by: Abiodun Antunez M.D. 02/10/2022 9:35 AM
[2022-02-10] MEDS ORDERED: SODIUM CHLORIDE 0.9% 1000ML 1,000 ML IV ONE (09:58)
[2022-02-10] MEDS: OXYBUTYNIN CHLORIDE XL 5 MG TABCR PO SCH (10:27)
--- NOTE | 2022-02-10 11:35 | Surgery Consultation ---
Date of Consultation February 10, 2022 Assessment & Plan (1) Left ureteral stone: Cholelithiasis and wall thickening on CT and US, WBC normal Unlikely her symptoms are related to cholelithiasis, will check HIDA Has been NPO today and BP low, will increase IVF for now, resume diet after HIDA As above. Multiple abdominal complaints. Imaging with some slight gallbladder wall thickening. I suspect this is just contracted gallbladder however due to her symptoms we will proceed with HIDA scan to rule out acute cholecystitis. We will follow along for now. History of Present Illness Attending Physician: Kirill Valle MD History of Present Illness 51 y/o female who is 2 days s/p L cysto/stent placement for stone/sepsis. She is complaining of increased abdominal pain over the past 24 hours and fevers. Initial CT showed some gallbladder wall thickening. She was not having any right side pain on admission, now has pain "all over". No history of fatty food intolerance, N/V or family history of biliary disease. Had small dinner last night, has been NPO for studies so far today. Allergies Allergy/AdvReac Type Severity Reaction Status Date / Time hydromorphone [From Dilaudid] Allergy Unknown CAN'T Verified 02/08/22 01:00 REMEMBER meperidine AdvReac Severe SEIZURE Verified 02/08/22 01:00 A CHILD Home Medications Medication Instructions Recorded Confirmed Type conj estrogen-medroxyprogesterone 1 tab PO HS 12/10/20 02/08/22 History 0.45 mg-1.5 mg tablet (Prempro) lidocaine 5 % topical patch 1 patch topical DAILY PRN Pain 12/10/20 02/08/22 History trazodone 100 mg tablet 200 mg PO HS 12/10/20 02/08/22 History diclofenac sodium 75 mg 75 mg PO BID PRN Pain, Severe 08/16/21 02/08/22 History tablet,delayed release phentermine 37.5 mg tablet 37.5 mg PO DAILY 08/16/21 02/08/22 History metoprolol succinate 25 mg 25 mg PO DAILY PRN PVC'S 02/08/22 02/08/22 History tablet,extended release 24 hr naltrexone 50 mg tablet 12.5 mg PO DAILY 02/08/22 02/08/22 History omeprazole 20 mg tablet,delayed 20 mg PO DAILY PRN Heartburn 02/08/22 02/08/22 History release spironolactone 100 mg tablet 100 mg PO QAM 02/08/22 02/08/22 History topiramate 50 mg tablet 50 mg PO DAILY 02/08/22 02/08/22 History Patient History Medical History Symptoms of urinary tract infection UTI (urinary tract infection) Surgical History No significant past surgical history Family History Other No significant family history Social History Smoking Status: Never smoker Second Hand Exposure: No; Hx Alcohol Use: Yes Hx Substance Use: No Preferred Language: Nepalese Communication Ability: Effective Engine Turner Required: No Beliefs That Will Affect Care: Evangelical Current Living Situation: Spouse and Family Feels Safe at Home: Yes Assistive Devices: None Review of Systems Constitutional: + fever and + chills Respiratory: no cough and no dyspnea Cardiovascular: + chest pain (had CT last night); no dyspnea at rest Gastrointestinal: + abdominal pain and + nausea Genitourinary: + dysuria Physical Exam Constitutional: WD/WN, vitals as above Respiratory: normal respiratory effort, lungs clear to auscultation Cardiovascular: RRR, no murmur, no edema Gastrointestinal (Abdomen): Inspection/Auscultation: abdomen not distended Percussion/Palpation: + abdomen tender (generalized) and abdomen soft Results & Data ([facility]) Vital Signs (Past 12 Hours) Vital Signs Temp Pulse Resp BP BP Pulse Ox O2 Del Method 02/10/22 08:00 Room Air 02/10/22 10:15 74 93/61 L 02/10/22 08:43 74 89/61 L 02/10/22 07:53 36.7 C 77 18 90/57 L 95 Room Air 02/10/22 00:17 66 119/64 PG Care Time/CCT Total # of Minutes Spent Total Time Spent with Patient: Total time spent is greater than 50% in coordination of care (as documented) at patient's floor/unit and/or counseling patient: Coding Level of Care Code 22407 Inpt Consult Level 4 Diagnoses Left ureteral stone N20.1
[2022-02-10 11:44] LABS: Hematocrit (blood only) 32.7 % (34.1-44.9); Hemoglobin 10.9 g/dl (12.0-16.0); Mean Corpuscular Hgb Conc 33.3 g/dL (32.0-36.0); Mean Corpuscular Volume 90.1 fL (80.0-100.0); Mean Platelet Volume 11.7 fL (9.4-12.3); Platelet Count 174 K/uL (130-400); RDW Coefficient of Variation 13.5 % (11.5-14.5); RDW Standard Deviation 44.5 fL (36.4-46.3); Red Blood Count 3.63 M/uL (3.93-5.22); White Blood Count 6.32 K/ul (4.8-10.8)
[2022-02-10] MEDS ORDERED: MoRPHine SULFATE 2 MG/ML CARP ONE (14:39)
--- NOTE | 2022-02-10 15:36 | Nuclear Medicine Report ---
PROCEDURE: NM hepatobiliary CLINICAL HISTORY: abdominal pain. COMPARISON: There are no relevant prior studies available for comparison. RADIOPHARMACEUTICAL: 5.6 mCi Tc99m mebrofenin IV TECHNIQUE: Following intravenous administration of Tc-99m mebrofenin, sequential abdominal images we re obtained. FINDINGS: There is prompt, uniform accumulation of the tracer by the liver. There is anatomic filling of the in trahepatic ducts, common bile duct. Gallbladder begins to fill at minutes. There is anatomic excretio n of the tracer into the duodenum. IMPRESSION: Normal hepatobiliary scintigraphy. ACT 112: Negative or not required by law. Electronically signed by: Yoshi Yu M.D. 02/10/2022 3:34 PM
[2022-02-10] MEDS: SODIUM CHLORIDE 0.9% 1000ML 1,000 ML IV SCH (17:32)
--- NOTE | 2022-02-10 17:49 | Hospitalist Progress Note ---
Date of Service February 10, 2022 Assessment & Plan (1) Left ureteral stone: Plan: Left ureteric stone with mild hydronephrosis S/P cystoscopy with left ureteral stent placement --CT ABD:Obstructive nephrolithiasis in the left proximal ureter with associated mild hydronephrosis. Appreciate urology input and recommendation Pain control Needs follow-up with urology upon discharge Persistent flank pain likely secondary to stent May need definitive plan to treat ureteral stones and removal of stent (2) Left flank pain: Plan: Management as above Fever Unclear source of Infection Blood cultures: Negative to date Urine analysis not suggestive of UTI --CTA No pulmonary emboli identified. Mild interstitial pulmonary edema with small bilateral pleural effusions. Ground glass and patchy airspace opacities may reflect alveolar edema or a superimposed infectious process. Borderline cardiomegaly. --CT ABD:Left ureteral stent in place with resolution of left hydronephrosis. 3 mm densities within the proximal and distal left ureter, as described above. These could reflect small calculi or fragments. Excreted contrast could appear similar. Left-sided nephrolithiasis. Cholelithiasis with gallbladder distention and mild gallbladder wall thickening. If right upper quadrant pain, ultrasound is recommended to exclude acute cholecystitis. --Gall Bladder USD:Cholelithiasis and mild gallbladder wall thickening. No sonographic Guidry sign. Therefore, the findings are equivocal for acute cholecystitis. A hepatobiliary scan could be obtained as indicated. No biliary ductal dilatation. --HIDA Scan:Normal hepatobiliary scintigraphy. IV Rocephin broadened to Zosyn Continue IV fluids as needed Normal lactate levels procalcitonin normal Appreciate Surgery Input Electrolyte abnormalities Hypocalcemia, hypomagnesemia, hypokalemia Replete electrolytes as needed Hypotension BP usually runs in 90s as per patient Continue IV fluids Monitor BP (3) PVCs (premature ventricular contractions): Plan: History of premature ventricular contractions Has been on beta-jeanie as needed Monitor DVT Px: SCDs for now Encouraged to ambulate CODE STATUS Full code Admission and Anticipated Discharge Date Admission Date: February 08, 2022 Subjective Patient is seen and examined at bedside Continues to have persistent abdominal pain, nausea and headache Afebrile today Discussed with patient's family at bedside Denies any chest pain, shortness of breath Review of Systems Review of Systems: All systems reviewed & are unremarkable except as noted in Subjective Physical Exam Physical Exam: Physical Exam: Vitals signs as noted above General Appearance:Obese, built and nourished, no apparent distress Head: normocephalic, Atraumatic Eyes: normal inspection, EOMI Neck: supple, Trachea midline Respiratory/Chest: Normal breath sounds, CTA, No accessory muscle use Cardiovascular: S1, S2, No murmur Abdomen/GI:Soft, Left tender, Bowel sounds present Extremities/Musculoskeletal:normal inspection, no edema Neurologic/Psych:AAOX3, grossly no focal neurological deficits Skin: normal color, warm Results & Data Results & Data ([facility]) Vital Signs (Past 12 Hours) Vital Signs Temp Pulse Pulse Resp BP BP Pulse Ox 02/10/22 17:36 77 105/73 02/10/22 16:06 36.3 C L 77 16 108/74 93 02/10/22 12:32 36.3 C L 77 99/69 L 02/10/22 08:00 02/10/22 10:15 74 93/61 L 02/10/22 08:43 74 89/61 L 02/10/22 07:53 36.7 C 77 18 90/57 L 95 O2 Del Method 02/10/22 17:36 02/10/22 16:06 Room Air 02/10/22 12:32 02/10/22 08:00 Room Air 02/10/22 10:15 02/10/22 08:43 02/10/22 07:53 Room Air Laboratory Results Short CBC 02/10/22 02/10/22 Range/Units 10:20 11:13 WBC Cancelled 6.32 Hgb Cancelled 10.9 L Hct Cancelled 32.7 L Plt Count Cancelled 174 BMP 02/09/22 02/10/22 21:14 07:42 Sodium 139 141 Potassium 3.2 L 4.0 D Chloride 112 H 114 H Carbon Dioxide 22 22 BUN 4 L 4 L Creatinine 0.92 0.84 Glucose 137 H 95 Calcium 7.8 L 8.0 L Liver Function 02/09/22 02/10/22 02/10/22 Range/Units 21:14 07:42 07:42 Total Bilirubin 0.4 0.4 Cancelled (0.2-1.0) mg/dl Direct Bilirubin 0.0 Cancelled (0-0.2) mg/dl AST 13 22 Cancelled (13-39) U/L ALT 10 14 Cancelled (7-52) U/L Alkaline Phosphatase 54 52 Cancelled (34-104) U/L Albumin 2.9 L 3.1 L Cancelled (3.4-5.0) gm/dl
[2022-02-10] MEDS ORDERED: PROMETHAZINE HCL 12.5 MG in SODIUM CHLORIDE 0.9% 50 ML IV PRN (20:20)
[2022-02-10] MEDS ORDERED: LACTULOSE SYRUP 30 GM/45 ML UDP PO STA (20:36)
[2022-02-10] MEDS ORDERED: POLYETHYLENE (MIRALAX) 17 GM PACK PO STA (20:36)
--- NOTE | 2022-02-10 21:49 | Electrocardiogram Report ---
Test Reason : Blood Pressure : / mmHG Vent. Rate : 075 BPM Atrial Rate : 075 BPM P-R Int : 148 ms QRS Dur : 082 ms QT Int : 398 ms P-R-T Axes : 064 076 057 degrees QTc Int : 444 ms Normal sinus rhythm Low voltage QRS Borderline ECG When compared with ECG of 07-FEB-2022 21:48, No significant change was found Confirmed by Tulio Negrete ([id number]) on 02/10/2022 9:49:14 PM Referred By: REFERRED SELF Confirmed By:Tulio Negrete
[2022-02-10] MEDS: MoRPHine SULFATE 4 MG/ML 1 ML CARP\\VIAL IV PRN (22:21)
[2022-02-10] MEDS: traZODone HCL 100 MG TAB PO SCH (23:04)
[2022-02-11] MEDS: PIPERACILLIN/TAZOBACTAM 4.5 GM in DEXTROSE 5% 100 ML IV SCH ×2 (00:20→08:24)
[2022-02-11] MEDS: KETOROLAC TROMETHAMINE 15 MG/ML VIAL IV PRN ×3 (01:42→21:15)
[2022-02-11] MEDS: oxyCODONE HCL IR 5 MG TAB (IMMEDIATE RELEASE) PO PRN ×3 (02:21→18:09)
[2022-02-11] MEDS: SODIUM CHLORIDE 0.9% 1000ML 1,000 ML IV SCH (06:12)
[2022-02-11] MEDS: DOCUSATE SODIUM/SENNA 50/8.6MG TAB PO SCH ×3 (06:13→21:17)
[2022-02-11] MEDS: OXYBUTYNIN CHLORIDE XL 5 MG TABCR PO SCH (08:26)
[2022-02-11] MEDS: MIDODRINE HCL 2.5 MG TAB PO SCH ×3 (08:26→18:10)
[2022-02-11] MEDS: TOPIRAMATE 50 MG TAB PO SCH ×2 (08:26→09:40)
[2022-02-11 08:42] LABS: Hematocrit (blood only) 33.4 % (34.1-44.9); Hemoglobin 10.6 g/dl (12.0-16.0); Mean Corpuscular Hemoglobin 29.6 pg (25.0-34.0); Mean Corpuscular Hgb Conc 31.7 g/dL (32.0-36.0); Mean Corpuscular Volume 93.3 fL (80.0-100.0); Mean Platelet Volume 11.1 fL (9.4-12.3); Platelet Count 203 K/uL (130-400); RDW Coefficient of Variation 13.6 % (11.5-14.5); RDW Standard Deviation 45.9 fL (36.4-46.3); Red Blood Count 3.58 M/uL (3.93-5.22)
[2022-02-11] MEDS ORDERED: MoRPHine SULFATE 2 MG/ML CARP IV PRN ×2 (09:09→11:17)
[2022-02-11 09:14] LABS: BUN Creatinine Ratio 3.8 (10-20); Calcium 7.7 mg/dl (8.5-10.1); Creatinine Clr Calc Pharmacy 89.6 ml/min; Est GFR (African American) 101.3 ml/min; Est GFR (Non-African American) 87.4 ml/min; Magnesium 1.6 mg/dl (1.7-2.4); Potassium 3.7 mmol/L (3.5-5.1)
[2022-02-11] MEDS: PHENAZOPYRIDINE HCL 200 MG TAB PO PRN ×2 (09:35→21:17)
--- NOTE | 2022-02-11 10:12 | Urology Progress Note ---
Date of Service February 11, 2022 Assessment & Plan (1) Left flank pain: (2) Left ureteral stone: Plan Overall vital signs are improving. She is no longer having any fevers and her hypertension is gradually resolving. She has no leukocytosis and no cultures to demonstrate infection. It seems likely that her pain is largely related to poor tolerance of left ureteral stent. We discussed pain management with Tylenol, ibuprofen, tamsulosin, Pyridium, oxybutynin and then narcotics for breakthrough pain. Since she appears to be stabilizing at this point, if her pain cannot be controlled with an optimal regimen, we could potentially go to the OR on 02/12 and treat her stones. There is a chance that she may not require stent after surgery, or that it could be removed shortly afterwards, which may facilitate eventual discharge home without any implants. For now, would recommend supportive care and pain control. Please make her n.p.o. at midnight 02/12 for potential intervention. Admission and Anticipated Discharge Date Admission Date: February 08, 2022 Subjective Still very uncomfortable today, describing pain mostly on the left side of the course of the ureter, however some pain in the epigastric region and some pain on the right side. Has not been up out of bed. No fevers of the last 24 hours however still having some intermittent hypotens ion. No leukocytosis (WBC 7.60) creatinine remains within normal limits (0.70). Cultures have been negative so far. Remains on Zosyn Seen by general surgery for possible cholecystitis, although this work-up ended up being negative. Urinating well, frequently. Review of Systems Constitutional: No fevers overnight Gastrointestinal: Abdominal pain Genitourinary: Urinary frequency Physical Exam Physical Exam: Uncomfortable appearing Gastrointestinal (Abdomen): Diffusely tender, left side more so than the right, non-peritonitic Results & Data ([facility]) Vital Signs (Past 12 Hours) Vital Signs Temp Pulse Resp BP BP Pulse Ox O2 Del Method 02/11/22 07:06 37.4 C 87 16 98/68 L 90 Room Air 02/10/22 22:20 83 105/67 PG Care Time/CCT Total # of Minutes Spent Total Time Spent with Patient: Total time spent is greater than 50% in coordination of care (as documented) at patient's floor/unit and/or counseling patient: Coding Level of Care Code 88779 Subseq Hosp Care Lvl 2 Diagnoses Left flank pain R10.9 Left ureteral stone N20.1
--- NOTE | 2022-02-11 10:45 | Surgery Progress Note ---
Date of Service February 11, 2022 Assessment & Plan (1) Left ureteral stone: (2) Left flank pain: Plan: HIDA scan was negative. Her symptoms do not appear to be gallbladder related. We will sign off. Admission and Anticipated Discharge Date Admission Date: February 08, 2022 Subjective Patient seen. Continues to be uncomfortable overall. Physical Exam Physical Exam: Alert. Abdomen soft with diffuse tenderness. No change from yesterday. Results & Data ([facility]) Vital Signs (Past 12 Hours) Vital Signs Temp Pulse Resp BP Pulse Ox O2 Del Method 02/11/22 07:06 37.4 C 87 16 98/68 L 90 Room Air PG Care Time/CCT Total # of Minutes Spent Total Time Spent with Patient: Total time spent is greater than 50% in coordination of care (as documented) at patient's floor/unit and/or counseling patient: Coding Level of Care Code 71524 Subseq Hosp Care Lvl 2 Diagnoses Left ureteral stone N20.1 Left flank pain R10.9
[2022-02-11] MEDS ORDERED: MAGNESIUM SULFATE / D5W 1 GM/100 ML BAG IV ONE (11:16)
[2022-02-11] MEDS: TAMSULOSIN HCL 0.4 MG CAP PO SCH (14:56)
--- NOTE | 2022-02-11 16:23 | Hospitalist Progress Note ---
Date of Service February 11, 2022 Assessment & Plan (1) Left ureteral stone: Plan: Left ureteric stone with mild hydronephrosis S/P cystoscopy with left ureteral stent placement --CT ABD:Obstructive nephrolithiasis in the left proximal ureter with associated mild hydronephrosis. Appreciate urology input and recommendation Pain control Needs follow-up with urology upon discharge Persistent flank pain likely secondary to stent May need definitive plan to treat ureteral stones and removal of stent NPO after midnight Encourage to ambulate Minimize Narcotic use as able Added flomax (2) Left flank pain: Plan: Management as above Fever Unclear source of Infection Blood cultures: Negative to date Urine analysis not suggestive of UTI --CTA No pulmonary emboli identified. Mild interstitial pulmonary edema with small bilateral pleural effusions. Ground glass and patchy airspace opacities may reflect alveolar edema or a superimposed infectious process. Borderline cardiomegaly. --CT ABD:Left ureteral stent in place with resolution of left hydronephrosis. 3 mm densities within the proximal and distal left ureter, as described above. These could reflect small calculi or fragments. Excreted contrast could appear similar. Left-sided nephrolithiasis. Cholelithiasis with gallbladder distention and mild gallbladder wall thickening. If right upper quadrant pain, ultrasound is recommended to exclude acute cholecystitis. --Gall Bladder USD:Cholelithiasis and mild gallbladder wall thickening. No sonographic Guidry sign. Therefore, the findings are equivocal for acute cholecystitis. A hepatobiliary scan could be obtained as indicated. No biliary ductal dilatation. --HIDA Scan:Normal hepatobiliary scintigraphy. IV Rocephin broadened to Zosyn Continue IV fluids as needed Normal lactate levels procalcitonin normal Appreciate Surgery Input Electrolyte abnormalities Hypocalcemia, hypomagnesemia, hypokalemia Replete electrolytes as needed Hypotension BP usually runs in 90s as per patient Continue IV fluids Monitor BP (3) PVCs (premature ventricular contractions): Plan: History of premature ventricular contractions Has been on beta-jeanie as needed Monitor DVT Px: SCDs for now Encouraged to ambulate CODE STATUS Full code Admission and Anticipated Discharge Date Admission Date: February 08, 2022 Subjective Patient is seen and examined at bedside Remains Afebrile Reports left flank/groin pain Discussed with Urology today Tolerating diet Denies chest pain, dyspnea, dizziness Review of Systems Review of Systems: All systems reviewed & are unremarkable except as noted in Subjective Physical Exam Physical Exam: Physical Exam: Vitals signs as noted above General Appearance:Obese, built and nourished, no apparent distress Head: normocephalic, Atraumatic Eyes: normal inspection, EOMI Neck: supple, Trachea midline Respiratory/Chest: Normal breath sounds, CTA, No accessory muscle use Cardiovascular: S1, S2, No murmur Abdomen/GI:Soft, Left flank, LLQ tender, Bowel sounds present Extremities/Musculoskeletal:normal inspection, no edema Neurologic/Psych:AAOX3, grossly no focal neurological deficits Skin: normal color, warm Results & Data Results & Data ([facility]) Vital Signs (Past 12 Hours) Vital Signs Temp Pulse Resp BP BP Pulse Ox O2 Del Method 02/11/22 15:06 36.7 C 77 16 107/65 91 Room Air 02/11/22 07:06 37.4 C 87 16 98/68 L 90 Room Air Laboratory Results Short CBC 02/11/22 Range/Units 08:09 WBC 7.60 (4.8-10.8) K/ul Hgb 10.6 L (12.0-16.0) g/dl Hct 33.4 L (34.1-44.9) % Plt Count 203 (130-400) K/uL BMP 02/11/22 08:09 Sodium 139 Potassium 3.7 Chloride 109 H Carbon Dioxide 26 BUN 3 L Creatinine 0.78 Glucose 93 Calcium 7.7 L
[2022-02-11] MEDS: HEPARIN SOD 5,000 UNIT/0.5 ML VIAL SQ SCH (21:15)
[2022-02-11] MEDS: traZODone HCL 100 MG TAB PO SCH (23:44)
[2022-02-11] MEDS: ACETAMINOPHEN 325 MG TAB PO PRN (23:44)
[2022-02-11] MEDS: ONDANSETRON INJ 2 MG/ML 2 ML VIAL IV PRN (23:44)
[2022-02-12] MEDS ORDERED: ALBUMIN 25% 100 mL 25 GM/100 ML VIAL IV ONE (02:40)
[2022-02-12] MEDS ORDERED: KETOROLAC TROMETHAMINE 15 MG/ML VIAL IV ONE (02:41)
[2022-02-12] MEDS: MIDODRINE HCL 2.5 MG TAB PO SCH ×3 (03:15→16:34)
[2022-02-12 03:59] LABS: Basophils # (auto) 0.02 K/uL (0-0.2); Basophils % (auto) 0.3 %; Eosinophils # (auto) 0.24 K/uL (0-0.50); Eosinophils % (auto) 3.9 %; Hematocrit (blood only) 32.2 % (34.1-44.9); Hemoglobin 10.2 g/dl (12.0-16.0); Immature Granulocytes # (auto) 0.03 K/uL (0.00-0.02); Immature Granulocytes % (auto) 0.5 %; Lymphocytes # (auto) 1.54 K/uL (1.2-3.4); Lymphocytes % (auto) 24.8 %; Mean Corpuscular Hemoglobin 29.6 pg (25.0-34.0); Mean Corpuscular Hgb Conc 31.7 g/dL (32.0-36.0); Mean Corpuscular Volume 93.3 fL (80.0-100.0); Mean Platelet Volume 10.6 fL (9.4-12.3); Monocytes # (auto) 0.62 K/uL (0.24-0.82); Neutrophils # (auto) 3.76 K/uL (1.4-6.5); Neutrophils % (auto) 60.5 %; Platelet Count 210 K/uL (130-400); RDW Coefficient of Variation 13.6 % (11.5-14.5); RDW Standard Deviation 46.5 fL (36.4-46.3); Red Blood Count 3.45 M/uL (3.93-5.22); White Blood Count 6.21 K/ul (4.8-10.8)
[2022-02-12 04:16] LABS: Albumin Globulin Ratio 1.3 (0.9-2); Albumin Level 3.1 gm/dl (3.4-5.0); BUN Creatinine Ratio 7.7 (10-20); Bilirubin,Total 0.4 mg/dl (0.2-1.0); Creatinine Clr Calc Pharmacy 107.5 ml/min; Est GFR (African American) 118.3 ml/min; Est GFR (Non-African American) 102.1 ml/min; Globulin 2.3 gm/dl (2.5-4.0); Potassium 3.3 mmol/L (3.5-5.1); Total Protein 5.4 gm/dl (6.0-8.3)
[2022-02-12] MEDS ORDERED: POTASSIUM CHLORIDE CRTAB 20 MEQ TABCR PO STA (06:13)
[2022-02-12] MEDS: TAMSULOSIN HCL 0.4 MG CAP PO SCH (09:21)
[2022-02-12] MEDS: TOPIRAMATE 50 MG TAB PO SCH (09:21)
[2022-02-12] MEDS: OXYBUTYNIN CHLORIDE XL 5 MG TABCR PO SCH (09:21)
[2022-02-12] MEDS: DOCUSATE SODIUM/SENNA 50/8.6MG TAB PO SCH ×2 (09:21→20:00)
[2022-02-12] MEDS: HEPARIN SOD 5,000 UNIT/0.5 ML VIAL SQ SCH ×2 (09:21→21:03)
--- NOTE | 2022-02-12 09:51 | CT Scan Report ---
CT head/brain wo con CLINICAL HISTORY: nelson COMPARISON STUDY: No previous studies for comparison. CT DOSE: 537.48 mGy.cm TECHNIQUE: Standard CT of the Brain was performed without IV contrast. A dose lowering technique was utilized adhering to the principles of ALARA. FINDINGS: Extraaxial space: There is no evidence for subdural hematoma. There are no extra-axial fluid collecti ons. Ventricles and cisterns: The ventricles are normal in size and configuration. There is no evidence fo r midline shift or mass effect. Parenchyma: There is no subarachnoid or intraparenchymal hemorrhage. There is no evidence for an acut e infarct or cerebral edema. There is homogeneous attenuation of the brain parenchyma. There are no g ross mass lesions. Osseous structures: There is no evidence for an acute fracture. The visualized paranasal sinuses are clear. The mastoid air cells are clear bilaterally. Soft tissues: There is no evidence for focal soft tissue swelling. IMPRESSION: 1. No acute intracerebral pathology. ACT 112: Negative or not required by law. Electronically signed by: Yoshi Yu M.D. 02/12/2022 9:49 AM
--- NOTE | 2022-02-12 10:18 | Urology Progress Note ---
Date of Service February 12, 2022 Assessment & Plan (1) Left flank pain: (2) Left ureteral stone: Plan Persistent abdominal pain and urinary symptoms are likely all related to her left ureteral stent. Unfortunately the symptoms have not responded well to medications. Since there is low suspicion for ongoing infection at this point and her vital signs are all stable and within normal limits. We discussed proceeding to the OR for ureteroscopy with stone removal and possible laser lithotripsy and stent exchange as a way to expedite eventual stent removal. We discussed the risks and benefits of this procedure including the risks of bleeding, infection, injury to the urinary tract, inability to remove all the stone and need for additional procedure. She expressed understanding and would like to proceed with ureteroscopy and stone removal. We will plan for surgery today to remove her kidney stones. Admission and Anticipated Discharge Date Admission Date: February 08, 2022 Subjective Still having persistent left-sided flank and abdominal pain. No fevers overnight. Blood pressures have been more stable. No leukocytosis and normal creatinine this morning She has been voiding without difficulty, however has significant pain and bladder spasms with voiding. Has not passed any stones. Low concern at this point for any other intra-abdominal pathology Review of Systems Review of Systems: 14 point review of systems negative except for otherwise indicated. Physical Exam Physical Exam: Uncomfortable appearing, resting in bed Eyes: + anicteric sclerae; pupils not irregular Respiratory: normal respiratory effort; no respiratory distress, does not use accessory muscles and no cough Cardiovascular: well perfused Gastrointestinal (Abdomen): Inspection/Auscultation: abdomen normal to inspection; abdomen not distended Musculoskeletal: Extremities: extremities normal to inspection Skin: normal turgor; no rashes and no lesions Neurologic: moves all extremities and awake Psychiatric: Orientation: alert and oriented x 3 Results & Data ([facility]) Vital Signs (Past 12 Hours) Vital Signs Temp Pulse Pulse Resp BP BP Pulse Ox 02/12/22 09:45 02/12/22 07:19 36.7 C 77 16 103/68 92 02/12/22 05:14 36.6 C 74 14 109/72 92 02/12/22 03:15 36.3 C L 73 14 94/59 L 90 02/12/22 02:35 36.2 C L 91 H 91 H 16 76/48 L 90 O2 Del Method 02/12/22 09:45 Room Air 02/12/22 07:19 Room Air 02/12/22 05:14 Room Air 02/12/22 03:15 Room Air 02/12/22 02:35 Room Air PG Care Time/CCT Total # of Minutes Spent Total Time Spent with Patient: Total time spent is greater than 50% in coordination of care (as documented) at patient's floor/unit and/or counseling patient: Coding Level of Care Code 95828 Subseq Hosp Care Lvl 2 Diagnoses Left flank pain R10.9 Left ureteral stone N20.1
[2022-02-12] MEDS ORDERED: MIDAZOLAM HCL 1 MG/ML 2ML VIAL ONE (11:09)
[2022-02-12] MEDS ORDERED: fentaNYL citrate 100 MCG/2 ML VIAL ONE (11:09)
--- NOTE | 2022-02-12 11:45 | Anesthesiology Consultation ---
Date of Service February 12, 2022 Assessment & Plan (1) Encounter for pre-operative examination: History Surgery Operation Date: 02/08/22 08:50 Proposed Procedures p Cystoscopy, Left Stent Insertion - Zaheer Pulido MD Operation Date: 02/12/22 13:00 Proposed Procedures p Ureteral Stent Insertion/Removal(Left) - Ibrahima Epstein MD Height/Weight Height: 5 ft 3 in Weight: 89.5 kg Allergies Allergy/AdvReac Type Severity Reaction Status Date / Time hydromorphone [From Dilaudid] Allergy Unknown CAN'T Verified 02/08/22 01:00 REMEMBER meperidine AdvReac Severe SEIZURE Verified 02/08/22 01:00 A CHILD Medications Home Medications Medication Instructions Recorded Confirmed Last Taken conj estrogen-medroxyprogesterone 1 tab PO HS 12/10/20 02/08/22 08/14/21 0.45 mg-1.5 mg tablet (Prempro) lidocaine 5 % topical patch 1 patch topical DAILY PRN Pain 12/10/20 02/08/22 11/26/20 trazodone 100 mg tablet 200 mg PO HS 12/10/20 02/08/22 08/14/21 diclofenac sodium 75 mg 75 mg PO BID PRN Pain, Severe 08/16/21 02/08/22 Unknown tablet,delayed release phentermine 37.5 mg tablet 37.5 mg PO DAILY 08/16/21 02/08/22 08/15/21 metoprolol succinate 25 mg 25 mg PO DAILY PRN PVC'S 02/08/22 02/08/22 Unknown tablet,extended release 24 hr naltrexone 50 mg tablet 12.5 mg PO DAILY 02/08/22 02/08/22 Unknown omeprazole 20 mg tablet,delayed 20 mg PO DAILY PRN Heartburn 02/08/22 02/08/22 Unknown release spironolactone 100 mg tablet 100 mg PO QAM 02/08/22 02/08/22 Unknown topiramate 50 mg tablet 50 mg PO DAILY 02/08/22 02/08/22 Unknown Active Medications Generic Name Dose Route Start Last Admin Trade Name Freq PRN Reason Stop Dose Admin Acetaminophen 650 mg 02/08/22 03:07 02/11/22 23:44 Acetaminophen 325 Mg Tab PO 03/10/22 03:06 650 mg Q4H PRN Administration pain/fever Heparin Sodium (Porcine) 5,000 units 02/11/22 21:00 02/12/22 09:21 Heparin Sod 5,000 Unit/0.5 Ml Vial SQ 03/13/22 20:59 5,000 units Q12 TANIA Administration Promethazine HCl 12.5 mg/ 50.5 mls @ 202 mls/hr 02/10/22 20:20 02/10/22 22:08 Sodium Chloride IV 03/12/22 20:19 Infused Q6H PRN Infusion Nausea And Vomiting Ketorolac Tromethamine 30 mg 02/08/22 10:39 02/11/22 21:15 Ketorolac Tromethamine 15 Mg/Ml Vial IV 02/13/22 03:06 30 mg Q6H PRN Administration Moderate Pain Lidocaine 1 patch 02/08/22 03:07 02/10/22 08:01 Lidocaine 5% 1 Patch TD 03/10/22 03:06 1 patch DAILY@0900 PRN Administration Pain Midodrine 5 mg 02/12/22 02:45 02/12/22 11:11 Midodrine Hcl 2.5 Mg Tab PO 03/14/22 02:44 5 mg TID@0800,1200,1700 TANIA Administration Miscellaneous 1 each 02/08/22 21:00 02/11/22 21:17 Remove Lidoderm Patch N/A 03/10/22 20:59 Not Given DAILY@2100 TANIA Ondansetron HCl 4 mg 02/08/22 03:07 02/11/22 23:44 Ondansetron Inj 2 Mg/Ml 2 Ml Vial IV 03/10/22 03:06 4 mg Q6H PRN Administration Nausea Oxybutynin Chloride 5 mg 02/10/22 09:30 02/12/22 09:21 Oxybutynin Chloride Xl 5 Mg Tabcr PO 03/12/22 09:29 5 mg QAM TANIA Administration Oxycodone HCl 5 - 10 mg 02/09/22 01:39 02/11/22 18:09 Oxycodone Hcl Ir 5 Mg Tab (Immediate Release) PO 02/23/22 01:38 10 mg QID PRN Administration Pain Pantoprazole Sodium 40 mg 02/08/22 03:07 02/10/22 08:44 Pantoprazole 40 Mg Tab PO 40 mg DAILY PRN Administration Heartburn Phenazopyridine HCl 200 mg 02/08/22 21:52 02/11/22 21:17 Phenazopyridine Hcl 200 Mg Tab PO 03/10/22 21:51 200 mg TID PRN Administration bladder spasm Senna/Docusate Sodium 1 tab 02/10/22 20:45 02/12/22 09:21 Docusate Sodium/Senna 50/8.6mg Tab PO 03/12/22 20:44 1 tab BID TANIA Administration Tamsulosin HCl 0.4 mg 02/11/22 09:15 02/12/22 09:21 Tamsulosin Hcl 0.4 Mg Cap PO 03/13/22 09:14 0.4 mg QAM TANIA Administration Topiramate 50 mg 02/08/22 09:00 02/12/22 09:21 Topiramate 50 Mg Tab PO 03/10/22 08:59 Not Given DAILY TANIA Trazodone HCl 200 mg 02/08/22 21:00 02/11/22 23:44 Trazodone Hcl 100 Mg Tab PO 03/10/22 20:59 200 mg HS TANIA Administration NPO Date Last Intake of Fluids: 02/11/22 Time Last Intake of Fluids: 23:59 Date Last Intake of Solids: 02/11/22 Time Last Intake of Solids: 23:59 Past Medical History Medical History Symptoms of urinary tract infection UTI (urinary tract infection) Past Family History Family History Other No significant family history Past Surgical History Surgical History No significant past surgical history Social History Smoking Status: Never smoker Do You Dip or Chew Tobacco: No Hx Alcohol Use: Yes alcohol intake frequency: holidays/special occasions only Hx Substance Use: No substance use type: does not use Physical Exam Vital Signs Last Vital Signs Temp 36.7 C 02/12/22 07:19 Pulse 77 02/12/22 07:19 Resp 16 02/12/22 07:19 BP 103/68 02/12/22 07:19 Pulse Ox 92 02/12/22 07:19 O2 Del Method 02/12/22 09:45 O2 Flow Rate 02/08/22 09:55 Testing Laboratory Results 02/12/22 03:45 02/12/22 03:45 APTT 30.5 Seconds (21.0-31.0) 02/09/22 03:51 Urine Color Yellow 02/08/22 04:16 Urine Appearance Clear (Clear) 02/08/22 04:16 Urine pH 6.5 (4.5-7.5) 02/08/22 04:16 Ur Specific [place] 1.018 (1.000-1.030) 02/08/22 04:16 Urine Protein Negative (Negative) 02/08/22 04:16 Urine Glucose (UA) Negative (Negative) 02/08/22 04:16 Urine Ketones 2+ (Negative) H 02/08/22 04:16 Urine Nitrite Negative (Negative) 02/08/22 04:16 Ur Leukocyte Esterase Trace (Negative) H 02/08/22 04:16 Urine WBC (Auto) 5-10 /hpf (0-5) H 02/08/22 04:16 Urine RBC (Auto) 0-4 /hpf (0-4) 02/08/22 04:16 U Hyaline Cast (Auto) 1-5 /lpf (0-5) 02/08/22 04:16 U Epithel Cells (Auto) >30 /lpf (0-5) H 02/08/22 04:16 Urine Bacteria (Auto) Negative (Negative) 02/08/22 04:16 Urine Test Negative (Negative) 02/08/22 04:16 02/09/22 09:52 Aerobic Blood Culture - Preliminary Blood No growth in Aerobic bottle after 48 hours. Anaerobic Blood Culture - Final 02/09/22 09:43 Aerobic Blood Culture - Preliminary Blood No growth in Aerobic bottle after 48 hours. Anaerobic Blood Culture - Preliminary No growth in Anaerobic bottle after 48 hours. 02/08/22 04:16 Urine Test Negative Electrocardiogram Date: 02/07/22 Findings: + NSR @
[2022-02-12] MEDS ORDERED: ATROPINE SULFATE 0.1 MG/ML 10ML SYR IV PRN (11:49)
[2022-02-12] MEDS ORDERED: ONDANSETRON INJ 2 MG/ML 2 ML VIAL IV PRN (11:49)
[2022-02-12] MEDS ORDERED: ePHEDrine sulfate 50 MG/ML AMP IV PRN (11:49)
[2022-02-12] MEDS ORDERED: fentaNYL citrate 100 MCG/2 ML VIAL IV PRN (11:49)
[2022-02-12] MEDS ORDERED: ceFAZolin 2000MG 2,000 MG/15 ML SYR IV ONE (11:51)
[2022-02-12] MEDS ORDERED: ONDANSETRON INJ 2 MG/ML 2 ML VIAL ONE (12:20)
[2022-02-12] MEDS ORDERED: LIDOCAINE 2% MPF LOCAL 5 ML VIAL INFIL ONE (12:20)
[2022-02-12] MEDS ORDERED: KETOROLAC 30 MG/ML VIAL ONE (12:20)
[2022-02-12] MEDS ORDERED: PROPOFOL IV EMULSION 10 MG/ML 20 ML VIAL IV ONE (12:20)
[2022-02-12] MEDS ORDERED: DIATRIZOATE MEGLUMINE 30% 100ML VIAL INSTIL PRN (12:31)
--- NOTE | 2022-02-12 12:35 | Hospitalist Progress Note ---
Date of Service February 12, 2022 Assessment & Plan (1) Left ureteral stone: Plan: Left ureteric stone with mild hydronephrosis S/P cystoscopy with left ureteral stent placement-- on 02/08/22 by S/P Cystoscopy, ureteronephroscopy, retrograde pyelogram, extracton of stone, exchange of left stent catheter by on 02/12/22 --CT ABD:Obstructive nephrolithiasis in the left proximal ureter with associated mild hydronephrosis. Appreciate urology input and recommendation Pain control Minimize Narcotic use as able Continue flomax Advance diet as tolerated Needs follow up up with Urology upon discharge (2) Left flank pain: Plan: Management as above Fever Unclear source of Infection Blood cultures: Negative to date Urine analysis not suggestive of UTI --CTA No pulmonary emboli identified. Mild interstitial pulmonary edema with small bilateral pleural effusions. Ground glass and patchy airspace opacities may reflect alveolar edema or a superimposed infectious process. Borderline cardiomegaly. --CT ABD:Left ureteral stent in place with resolution of left hydronephrosis. 3 mm densities within the proximal and distal left ureter, as described above. These could reflect small calculi or fragments. Excreted contrast could appear similar. Left-sided nephrolithiasis. Cholelithiasis with gallbladder distention and mild gallbladder wall thickening. If right upper quadrant pain, ultrasound is recommended to exclude acute cholecystitis. --Gall Bladder USD:Cholelithiasis and mild gallbladder wall thickening. No sonographic Guidry sign. Therefore, the findings are equivocal for acute cholecystitis. A hepatobiliary scan could be obtained as indicated. No biliary ductal dilatation. --HIDA Scan:Normal hepatobiliary scintigraphy. IV Rocephin broadened to Zosyn Continue IV fluids as needed Normal lactate levels procalcitonin normal Appreciate Surgery Input Repeat Urine Culture from 02/12/22 pending Electrolyte abnormalities Hypocalcemia, hypomagnesemia, hypokalemia Replete electrolytes as needed Hypotension BP usually runs in 90s as per patient Continue IV fluids as needed Monitor BP (3) PVCs (premature ventricular contractions): Plan: History of premature ventricular contractions Has been on beta-jeanie as needed Monitor DVT Px: SCDs for now Encouraged to ambulate CODE STATUS Full code Admission and Anticipated Discharge Date Admission Date: February 08, 2022 Subjective Patient is seen and examined at bedside No new Complaints Persistent left flank/groin pain Denies chest pain, dyspnea, dizziness Planned for Urological procedure today Review of Systems Review of Systems: All systems reviewed & are unremarkable except as noted in Subjective Physical Exam Physical Exam: Physical Exam: Vitals signs as noted above General Appearance:Obese, built and nourished, no apparent distress Head: normocephalic, Atraumatic Eyes: normal inspection, EOMI Neck: supple, Trachea midline Respiratory/Chest: Normal breath sounds, CTA, No accessory muscle use Cardiovascular: S1, S2, No murmur Abdomen/GI:Soft, Left flank, LLQ tender, Bowel sounds present Extremities/Musculoskeletal:normal inspection, no edema Neurologic/Psych:AAOX3, grossly no focal neurological deficits Skin: normal color, warm Results & Data Results & Data ([facility]) Vital Signs (Past 12 Hours) Vital Signs Temp Pulse Pulse Resp BP BP Pulse Ox 02/12/22 09:45 02/12/22 07:19 36.7 C 77 16 103/68 92 02/12/22 05:14 36.6 C 74 14 109/72 92 02/12/22 03:15 36.3 C L 73 14 94/59 L 90 02/12/22 02:35 36.2 C L 91 H 91 H 16 76/48 L 90 O2 Del Method 02/12/22 09:45 Room Air 02/12/22 07:19 Room Air 02/12/22 05:14 Room Air 02/12/22 03:15 Room Air 02/12/22 02:35 Room Air Laboratory Results Short CBC 02/12/22 Range/Units 03:45 WBC 6.21 (4.8-10.8) K/ul Hgb 10.2 L (12.0-16.0) g/dl Hct 32.2 L (34.1-44.9) % Plt Count 210 (130-400) K/uL BMP 02/12/22 03:45 Sodium 142 Potassium 3.3 L Chloride 111 H Carbon Dioxide 26 BUN 5 L Creatinine 0.65 Glucose 111 H Calcium 8.0 L Liver Function 02/12/22 Range/Units 03:45 Total Bilirubin 0.4 (0.2-1.0) mg/dl AST 17 (13-39) U/L ALT 19 (7-52) U/L Alkaline Phosphatase 65 (34-104) U/L Albumin 3.1 L (3.4-5.0) gm/dl
--- NOTE | 2022-02-12 12:43 | Operative Report ---
PG Post Operative Report Pre & Post Diagnosis Operation Date: 02/12/22 13:00 Pre-Op Diagnosis: Left ureteral stone. Post-Op Diagnosis: Left ureteral stone. I identified the patient and participated in the time-out.: Yes Procedure Operation Date: 02/12/22 13:00 Actual Procedures p Cystoscopy, ureteronephroscopy, retrograde pyelogram, extracton of stone, exchange of left stent catheter.(Left) - Ibrahima Epstein MD Surgeon Ibrahima Epstein MD Tube Coater none Estimated Blood Loss 0 Findings See Below Stone visualized in the proximal ureter, extracted with Nitinol wire basket. Mucosal split appreciated at the site of the prior stone therefore the stones in the kidney were not removed. Left ureteral stent was replaced without strings attached. Specimens Left ureteral stone Drains 6 [place] by 24 cm double-J ureteral stent in the left ureter Anesthesia Type General Complications Mucosal tear on the left ureter at the site of the stone Disposition Accompanied Patient To Recovery: Yes Disposition: Recovery Room Indications 51-year-old female who recently presented to the emergency department with left- sided flank pain as well as abdominal pain. On CT scan she was found to have a left ureteral stone. At that time there was concern for urinary tract infection and she underwent left ureteral stent placement on an urgent basis. She has tolerated the stent poorly and no cultures have demonstrated any infection. Her vital signs and lab work all improved and she returns to the OR today for defini tive stone management. Description of Procedure The patient was identified in the holding area and informed consent was confirmed. She was marked on the left side, then was taken to the operating room where general anesthesia was initiated. She was placed in the dorsal lithotomy position with all pressure points appropriately padded. He was prepped and draped in the usual sterile fashion and a preoperative timeout was performed. A well-lubricated cystoscope was inserted per urethra and panendoscopy was performed. The urethra was normal with no strictures or mucosal abnormalities. The bladder had some turbid urine and debris in it. The stent was in place from the left ureteral orifice and there was significant fibrinous material on the stent. A pair of stent graspers was used to withdraw the stent to the urethral meatus. The stent was then cannulated using a 0.038 inch zip wire which advanced easily up to the kidney under fluoroscopic guidance. The stent was removed and a dual- lumen catheter was then placed over the wire. Cystografin was used to perform a retrograde pyelogram through the second lumen. There was mild hydronephrosis of the left kidney. No overt filling defects were appreciated. A second wire was then placed up to the kidney under fluoroscopic guidance. A flexible ureteroscope was then inserted over one of the wires and advanced up into the ureter. The scope met resistance in the proximal ureter at the site of the stone. The stone was then grasped with the Nitinol wire basket and removed, however once the stone was moved it was clear that there was a mucosal split of the ureter at this level. The stone withdrew easily and was sent for analysis labeled as left ureteral stone, however due to the mucosal split I elected not to proceed with treatment of the stones in the kidney. The cystoscope was reinserted over the safety wire, then a 6 [place] x 24 centimeter double-J ureteral stent was advanced. When the wire was removed, the proximal curl was visualized in the kidney with x-ray, and the distal curl visualized in the bladder with the cystoscope. There was immediate outflow of turbid appearing urine through the stent. A sample of this was collected and sent for urine culture. At this point the bladder was drained and all instrumentation was removed. The patient was then awakened from anesthesia and was brought to the PACU in stable condition. I attest to the content of the Intraoperative Record and any orders documented therein. Any exceptions are noted below.
--- NOTE | 2022-02-12 13:35 | Anesthesiology Progress Note ---
Date of Service February 12, 2022 Anesthesia Post Procedure Vital Signs Vital Signs: Temp Pulse Pulse Pulse Resp BP BP 02/12/22 13:20 61 20 113/68 02/12/22 13:10 36.4 C L 61 19 120/68 02/12/22 13:00 64 19 103/69 02/12/22 12:50 65 22 115/70 02/12/22 12:42 36 C L 70 22 111/79 02/12/22 09:45 02/12/22 07:19 36.7 C 77 16 103/68 02/12/22 05:14 36.6 C 74 14 109/72 02/12/22 03:15 36.3 C L 73 14 02/12/22 02:35 36.2 C L 91 H 91 H 16 76/48 L 02/11/22 21:10 36.7 C 75 16 105/73 02/11/22 15:06 36.7 C 77 16 107/65 BP Pulse Ox O2 Del Method O2 Flow Rate 02/12/22 13:20 95 Nasal Cannula 2 02/12/22 13:10 96 Nasal Cannula 4 02/12/22 13:00 93 Oxymask 15 02/12/22 12:50 92 Oxymask 15 02/12/22 12:42 93 Oxymask 15 02/12/22 09:45 Room Air 02/12/22 07:19 92 Room Air 02/12/22 05:14 92 Room Air 02/12/22 03:15 94/59 L 90 Room Air 02/12/22 02:35 90 Room Air 02/11/22 21:10 93 Room Air 02/11/22 15:06 91 Room Air Pain Intensity Left Lower Abdomen: Pain Intensity: 4 Abdomen: Pain Intensity: 2 Transfer of Care Handoff Completed per policy Notes Mental Status: alert / awake / arousable and participated in evaluation Patient Amnestic to Procedure: Yes Nausea / Vomiting: adequately controlled Pain: adequately controlled Airway Patency, RR, SpO2: stable & adequate BP & HR: stable & adequate Hydration State: stable & adequate Anesthetic Complications: no major complications apparent
[2022-02-12] MEDS: PHENAZOPYRIDINE HCL 200 MG TAB PO PRN (16:02)
[2022-02-12] MEDS: KETOROLAC TROMETHAMINE 15 MG/ML VIAL IV PRN ×2 (16:27→22:46)
[2022-02-12] MEDS ORDERED: MoRPHine SULFATE 2 MG/ML CARP IV PRN (16:38)
[2022-02-12] MEDS ORDERED: ACETAMINOPHEN 1000 MG/100 ML IV IV PRN (16:39)
[2022-02-12] MEDS: oxyCODONE HCL IR 5 MG TAB (IMMEDIATE RELEASE) PO PRN (16:56)
[2022-02-12] MEDS: traZODone HCL 100 MG TAB PO SCH (22:29)
[2022-02-13] MEDS: oxyCODONE HCL IR 5 MG TAB (IMMEDIATE RELEASE) PO PRN ×3 (01:08→12:51)
[2022-02-13] MEDS: LIDOCAINE 5% 1 PATCH TD PRN (06:34)
[2022-02-13] MEDS: TAMSULOSIN HCL 0.4 MG CAP PO SCH (07:50)
[2022-02-13] MEDS: MIDODRINE HCL 2.5 MG TAB PO SCH ×2 (07:50→12:50)
[2022-02-13] MEDS: OXYBUTYNIN CHLORIDE XL 5 MG TABCR PO SCH (07:50)
[2022-02-13] MEDS: TOPIRAMATE 50 MG TAB PO SCH (07:51)
[2022-02-13] MEDS: DOCUSATE SODIUM/SENNA 50/8.6MG TAB PO SCH (07:51)
[2022-02-13] MEDS: HEPARIN SOD 5,000 UNIT/0.5 ML VIAL SQ SCH (07:51)
--- NOTE | 2022-02-13 07:52 | Urology Progress Note ---
Date of Service February 13, 2022 Assessment & Plan (1) Left ureteral stone: (2) Left flank pain: Plan Brittany is feeling somewhat better today, her vital signs are within normal limits and she is more comfortable with her new stent in place. I reviewed the results of yesterday's surgery with her -specifically that the ureteral stone is now removed, however there is persistent stone up in the kidney. We discussed that the stent will need to stay in place a little bit longer than anticipated due to the mucosal tear in the ureter. From the urology perspective she is appropriate for discharge home today. We will arrange follow-up as an outpatient. Admission and Anticipated Discharge Date Admission Date: February 08, 2022 Subjective Patient reports pain is changed today, may be slightly less intense Denies any fevers overnight, had some subjective chills. No nausea or vomiting Eager to go home today Review of Systems Constitutional: No fevers or chills Gastrointestinal: Tolerating a diet Physical Exam Physical Exam: Resting in bed, NAD Respiratory: Breathing comfortably on room air Results & Data ([facility]) Vital Signs (Past 12 Hours) Vital Signs Temp Pulse Resp BP Pulse Ox O2 Del Method 02/13/22 07:39 36.9 C 98 H 16 93/60 L 100 Room Air 02/13/22 03:18 36.9 C 98 H 18 88/56 L 90 Room Air 02/12/22 23:29 37.0 C 82 18 99/66 L 91 Room Air PG Care Time/CCT Total # of Minutes Spent Total Time Spent with Patient: Total time spent is greater than 50% in coordination of care (as documented) at patient's floor/unit and/or counseling patient: Coding Level of Care Code 05923 Subseq Obs Care Lvl 2 Diagnoses Left ureteral stone N20.1 Left flank pain R10.9
[2022-02-13 09:39] LABS: BUN Creatinine Ratio 7.1 (10-20); Calcium 8.1 mg/dl (8.5-10.1); Creatinine Clr Calc Pharmacy 99.8 ml/min; Est GFR (African American) 115.5 ml/min; Est GFR (Non-African American) 99.6 ml/min; Potassium 3.7 mmol/L (3.5-5.1)
--- NOTE | 2022-02-13 11:20 | Fluoroscopy Report ---
FL retrograde includes kub CLINICAL HISTORY: LEFT SIDED RETROGRADE AND STENT COMPARISON STUDY: CT of the abdomen and pelvis February 10, 2022. FLUOROSCOPY TIME: 8 seconds. FLUOROSCOPIC IMAGES: 2 FINDINGS: Fluoroscopy was provided during left retrograde exam with ureteral stent exchange. IMPRESSION: Fluoroscopy provided during left retrograde exam and left ureteral stent exchange. ACT 112: Negative or not required by law. Electronically signed by: Abiodun Antunez M.D. 02/13/2022 11:19 AM
[2022-02-13 11:23] VITALS: BP 85/59; TEMP 98.6; O2SAT 92
--- NOTE | 2022-02-13 13:04 | Hospitalist Progress Note ---
Date of Service February 13, 2022 Assessment & Plan (1) Left ureteral stone: Plan: Left ureteric stone with mild hydronephrosis S/P cystoscopy with left ureteral stent placement-- on 02/08/22 by S/P Cystoscopy, ureteronephroscopy, retrograde pyelogram, extracton of stone, exchange of left stent catheter by on 02/12/22 --CT ABD:Obstructive nephrolithiasis in the left proximal ureter with associated mild hydronephrosis. Appreciate urology input and recommendation Pain control Minimize Narcotic use as able Continue flomax Tolerated regular diet Needs follow up up with Urology upon discharge Plan to discharge home today (2) Left flank pain: Plan: Management as above Fever Unclear source of Infection Blood cultures: Negative to date Urine analysis not suggestive of UTI --CTA No pulmonary emboli identified. Mild interstitial pulmonary edema with small bilateral pleural effusions. Ground glass and patchy airspace opacities may reflect alveolar edema or a superimposed infectious process. Borderline cardiomegaly. --CT ABD:Left ureteral stent in place with resolution of left hydronephrosis. 3 mm densities within the proximal and distal left ureter, as described above. These could reflect small calculi or fragments. Excreted contrast could appear similar. Left-sided nephrolithiasis. Cholelithiasis with gallbladder distention and mild gallbladder wall thickening. If right upper quadrant pain, ultrasound is recommended to exclude acute cholecystitis. --Gall Bladder USD:Cholelithiasis and mild gallbladder wall thickening. No sonographic Guidry sign. Therefore, the findings are equivocal for acute cholecystitis. A hepatobiliary scan could be obtained as indicated. No biliary ductal dilatation. --HIDA Scan:Normal hepatobiliary scintigraphy. IV Rocephin broadened to Zosyn Continue IV fluids as needed Normal lactate levels procalcitonin normal Appreciate Surgery Input Repeat Urine Culture from 02/12/22 pending Will DC Antibiotics as less likely infected Advised to follow up with PCP for final Urine Cx results Electrolyte abnormalities Hypocalcemia, hypomagnesemia, hypokalemia Replete electrolytes as needed Hypotension BP usually runs in 90s as per patient Continue IV fluids as needed Monitor BP (3) PVCs (premature ventricular contractions): Plan: History of premature ventricular contractions Has been on beta-jeanie as needed Monitor DVT Px: SCDs for now Encouraged to ambulate CODE STATUS Full code Admission and Anticipated Discharge Date Admission Date: February 08, 2022 Subjective Patient is seen and examined at bedside Feels lot better today left flank/groin pain improved Denies chest pain, dyspnea, dizziness Plan to be discharged home today Review of Systems Review of Systems: All systems reviewed & are unremarkable except as noted in Subjective Physical Exam Physical Exam: Physical Exam: Vitals signs as noted above General Appearance:Obese, built and nourished, no apparent distress Head: normocephalic, Atraumatic Eyes: normal inspection, EOMI Neck: supple, Trachea midline Respiratory/Chest: Normal breath sounds, CTA, No accessory muscle use Cardiovascular: S1, S2, No murmur Abdomen/GI:Soft, Left flank, LLQ tender, Bowel sounds present Extremities/Musculoskeletal:normal inspection, no edema Neurologic/Psych:AAOX3, grossly no focal neurological deficits Skin: normal color, warm Results & Data Results & Data ([facility]) Vital Signs (Past 12 Hours) Vital Signs Temp Pulse Resp BP Pulse Ox O2 Del Method 02/13/22 11:20 37 C 92 H 18 85/59 L 92 Room Air 02/13/22 07:39 36.9 C 98 H 16 93/60 L 100 Room Air 02/13/22 03:18 36.9 C 98 H 18 88/56 L 90 Room Air Laboratory Results BMP 02/13/22 08:58 Sodium 140 Potassium 3.7 Chloride 109 H Carbon Dioxide 28 BUN 5 L Creatinine 0.70 Glucose 109 H Calcium 8.1 L
[2022-02-13] MEDS ORDERED: FLUCONAZOLE 100 MG TAB PO SCH (13:15)
--- NOTE | 2022-02-13 13:25 | Discharge Summary ---
Date of Service February 13, 2022 Admission HPI Per Admitting Provider CHIEF COMPLAINT: Abdominal pain. HISTORY OF PRESENT ILLNESS: This is a 51-year-old female with past medical history significant for PVCs, varicose veins of the lower extremities, multiple exostosis hereditary, myofascial pain syndrome, osteochondroma, obesity, presents with abdominal pain. She states pain started in the upper abdomen, but later noted pain is more in the left flank. Has severe pain associated with nausea and several episodes of vomiting. Currently, feeling chills. Denies any fever, no burning micturition. Somewhat constipated. No chest pain, no shortness of breath, no headache, no blurred visions, no earache, no runny nose. Hemodynamically stable. She says she had kidney stones in the past and she passed them on their own. Admission Exam Per Admitting Provider PHYSICAL EXAMINATION: GENERAL: The patient is obese, not in acute distress. VITAL SIGNS: Temperature 37.2, pulse 67, respiratory rate 18, blood pressure 123/62, oxygen 99% on room air. HEENT: Pupils equal, round and reactive to light. Oral mucosa moist. NECK: No JVD, no neck masses. CARDIOVASCULAR: S1 and S2 heard. Regular rate and rhythm. No murmur, no gallop. RESPIRATORY SYSTEM: Normal AP diameter. No accessory muscle use. No wheezing, no crackles. ABDOMEN: Soft, bowel sounds present. Left CVA tenderness present. No distenti on. CENTRAL NERVOUS SYSTEM: Cranial nerves II-XII grossly intact, nonfocal. EXTREMITIES: No edema, no erythema. Principal Diagnosis Left ureteric stone with mild hydronephrosis Hypocalcemia, hypomagnesemia, hypokalemia Discharge Data Allergies Allergy/AdvReac Type Severity Reaction Status Date / Time hydromorphone [From Dilaudid] Allergy Unknown CAN'T Verified 02/08/22 01:00 REMEMBER meperidine AdvReac Severe SEIZURE Verified 02/08/22 01:00 A CHILD Consultations 02/08/22 00:50 ED Decision to Admit Stat 02/08/22 08:00 Consult Urology Routine 02/10/22 07:35 Consult General Surgery Routine Procedures Performed Operation Date: 02/08/22 08:50 Actual Procedures p Cystoscopy, Left Ureteral Stent Placement(Left) - Zaheer Pulido MD Operation Date: 02/12/22 13:00 Actual Procedures p Cystoscopy, ureteronephroscopy, retrograde pyelogram, extracton of stone, exchange of left stent catheter.(Left) - Ibrahima Epstein MD Ordered Studies 02/07/22 21:45 CT abd pelvis wo con Urgent 02/08/22 FL KUB Routine 02/09/22 05:23 CT angio chest PE protocol Urgent 02/10/22 00:48 CT abd pelvis IV con only Urgent 02/10/22 08:06 US GB [US gallbladder] Routine 02/12/22 02:44 CT head/brain wo con Urgent 02/12/22 12:04 FL retrograde includes kub Routine Hospital Course (1) Left ureteral stone: Left ureteric stone with mild hydronephrosis S/P cystoscopy with left ureteral stent placement-- on 02/08/22 by S/P Cystoscopy, ureteronephroscopy, retrograde pyelogram, extracton of stone, exchange of left stent catheter by on 02/12/22 --CT ABD:Obstructive nephrolithiasis in the left proximal ureter with associated mild hydronephrosis. Appreciate urology input and recommendation Pain control Minimize Narcotic use as able Continue flomax Tolerated regular diet Needs follow up up with Urology upon discharge Plan to discharge home today (2) Left flank pain: Management as above Fever Unclear source of Infection Blood cultures: Negative to date Urine analysis not suggestive of UTI --CTA No pulmonary emboli identified. Mild interstitial pulmonary edema with small bilateral pleural effusions. Ground glass and patchy airspace opacities may reflect alveolar edema or a superimposed infectious process. Borderline cardiomegaly. --CT ABD:Left ureteral stent in place with resolution of left hydronephrosis. 3 mm densities within the proximal and distal left ureter, as described above. These could reflect small calculi or fragments. Excreted contrast could appear similar. Left-sided nephrolithiasis. Cholelithiasis with gallbladder distention and mild gallbladder wall thickening. If right upper quadrant pain, ultrasound is recommended to exclude acute cholecystitis. --Gall Bladder USD:Cholelithiasis and mild gallbladder wall thickening. No sonographic Guidry sign. Therefore, the findings are equivocal for acute cholecystitis. A hepatobiliary scan could be obtained as indicated. No biliary ductal dilatation. --HIDA Scan:Normal hepatobiliary scintigraphy. IV Rocephin broadened to Zosyn Continue IV fluids as needed Normal lactate levels procalcitonin normal Appreciate Surgery Input Repeat Urine Culture from 02/12/22 pending Will DC Antibiotics as less likely infected Advised to follow up with PCP for final Urine Cx results Electrolyte abnormalities Hypocalcemia, hypomagnesemia, hypokalemia Replete electrolytes as needed Hypotension BP usually runs in 90s as per patient Continue IV fluids as needed Monitor BP (3) PVCs (premature ventricular contractions): History of premature ventricular contractions Has been on beta-jeanie as needed Monitor DVT Px: SCDs for now Encouraged to ambulate CODE STATUS Full code Total Time Total Time Spent Total Time Spent (In Minutes): 49 minutes Discharge Plan Discharge Items Patient Disposition: Home - Self-Care Reason For Visit: ABDOMINAL PAIN Discharge Diagnosis: Left ureteric stone with mild hydronephrosis Hypocalcemia, hypomagnesemia, hypokalemia Condition on Discharge: Good Activity: Per Instructions section Exercise/Sports: Gradually increase as tolerated Non-emergency contact: Primary Care Provider and Urologist Call non-emergency contact if: you have any medication questions, your symptoms worsen, your pain is concerning for you and you have a fever Follow-up/Referrals: Luis Domingo DO [Primary Care Provider] - 02/16/22 10:20 am (Date & Time 02/16/2022 10:20 AM Provider Luis Domingo DO Department [facility] ) Diet: Regular Addtl Attending Provider Instructions: Follow-up with your primary care physician on 02/16/2022 10:20 AM Follow-up with your Urologist in 1-2 weeks as advised for ureteral stent removal and further management --Your final Urine Culture is pending at the time of discharge. Follow up with your physician for results --Your final blood cultures are pending as well. Follow up for results --Hold taking your Naltrexone which taking Oxycodone as advised. Seek immediate medical attention if your symptoms reoccur or worsen Please take all medications as instructed on discharge list below. Please call if you have any questions or problems. You can reach a [facility] hospitalist on duty at [facility] 24 hours a day by calling [phone] Pending Studies at Discharge: No Stand-Alone Forms: My [facility], Smoking Cessation Medications and DC Order Prescriptions: New fluconazole 200 mg tablet 200 mg PO QAM Qty: 2 0RF tamsulosin 0.4 mg Capsule 0.4 mg PO QAM Qty: 30 0RF oxycodone 5 mg Tablet 5 mg PO Q8H PRN (Reason: pain) Qty: 8 0RF phenazopyridine 100 mg tablet 100 mg PO TID PRN (Reason: pain) Qty: 30 0RF oxybutynin chloride 5 mg Tablet Extended Release 24hr 5 mg PO QAM Qty: 10 0RF Continued spironolactone 100 mg tablet 100 mg PO QAM naltrexone 50 mg tablet 12.5 mg PO DAILY topiramate 50 mg tablet 50 mg PO DAILY omeprazole 20 mg Tablet,Delayed Release (Dr/Ec) 20 mg PO DAILY PRN (Reason: Heartburn) metoprolol succinate 25 mg Tablet Extended Release 24 Hr 25 mg PO DAILY PRN (Reason: PVC'S) trazodone 100 mg tablet 200 mg PO HS lidocaine 5 % adhesive patch,medicated 1 patch topical DAILY PRN (Reason: Pain) Prempro 0.45-1.5 mg tablet 1 tab PO HS phentermine 37.5 mg Tablet 37.5 mg PO DAILY diclofenac sodium 75 mg tablet,delayed release (DR/EC) 75 mg PO BID PRN (Reason: Pain, Severe) Rx Instructions: take with food Discharge Orders: Discharge Order (Routine); Ordered 02/13/22 Ordered By: Kirill Valle Admission Data Admit Date/Time: 02/08/22 01:22 Attending Provider: Kirill Valle Admit Provider: Tod Baez Primary Care Provider: Luis Domingo Other Providers: Tod Baez ; Maximo Lawson ; Pedro Shanks ; Zaheer Pulido ; Shira Queen ; Reji Robbins ; Betty Neville ; Deisy Chang ; Ibrahima Epstein ; Sofy Elmore ; Miesha Bridges ; Kory Bernal ; Cheryle Daily ; Inder Mehta ; Reji Dia ; Temo Curry ; Thuy Martin ; Isabela Falcon ; Luis M Dao ; Ba Perez ; Ana Aviles ; Leticia Ramos ; Adria Ely Jr ; Zenon Briceño ; Agustin Gonzalez ; Radha Bolivar
[2022-02-13 14:17] VITALS: PULSE 61
[2022-02-16 16:37] LABS: Component 2 DNR; Source URETER STONE
== END 2022-02-13 15:08 | disposition home or self-care (01) | DRG 661 ==
LOC: ED 20:53 → EDINP 02-08 01:22 → SUATTDRO 02-08 01:22 → 3N 02-08 04:31

== ENCOUNTER 2023-03-31 14:29 | Inpatient (IN) ==
[2023-03-31] MEDS ORDERED: ACETAMINOPHEN 1,000 MG/100 ML VIAL IV STA (15:12)
--- NOTE | 2023-03-31 15:29 | Emergency Department Note ---
Impression & Plan Acute diverticulitis, Acute emphysematous cholecystitis ED Provider Note NAME: OUMAR ARCOS AGE: 52 SEX: F : 1970 ARRIVES VIA: Walk-In INFORMANT: Patient, ED PROVIDER(S): Stephani Chaudhari MD CHIEF COMPLAINT: Abdominal pain HPI: This is a 52-year-old female with history of diverticulitis presenting for pain. Patient states that her symptoms have lasted about 4+ weeks with acute worsening over the last 2 weeks. She states that she has diffuse abdominal pain and states that it feels like her intestines are inflamed. She notes pain with bowel movements, urination. She states pain is in the right side as well as going to the back. She reports nausea and vomiting. She feels fatigued. She also notes no diarrhea, constipation. She notes some normal bowel movements. No chest pain or shortness of breath. Never had pain like this before. Thought there was due to an infection so she took leftover Cipro/Flagyl with somewhat relief but recurrence of pain. ROS: See above HPI for pertinent positives & negatives. A total of 10 systems reviewed and were otherwise negative. PAST MEDICAL HISTORY: See Below PAST SURGICAL HISTORY: See Below FAMILY HISTORY: See Below SOCIAL HISTORY: See Below HOME MEDICATIONS: See Below ALLERGIES: See Below VITALS: See Below PHYSICAL EXAMINATION: General: resting comfortably in no acute distress Head: Normocephalic and atraumatic Eyes: Normal inspection, extraocular muscles intact, no conjunctival pallor Ear, nose, throat: Normal external exam Neck: Normal range of motion Respiratory: Patient is in no respiratory distress, lungs clear to auscultation bilaterally Cardiovascular: RRR without murmur appreciated GI: Soft, diffusely tender, voluntary guarding, no rebound Extremities: pulses intact with good cap refills, no LE pitting edema or calf tenderness Neuro: The patient awake and alert, appropriately conversive,no focal decifits Skin: Warm, dry, and intact MEDICAL DECISION MAKING: This is a 52-year-old female presenting for abdominal pain. Patient having 2- week plus history of abdominal pain. Now progressively worsening. Get CT of the abdomen/pelvis, basic lab work, full resuscitation due to tachycardia/hypotension. Low concern for sepsis in this patient without fever. Triage Nursing notes reviewed. Lab work is reviewed showing slight leukocytosis to 11.35. Otherwise no significant abnormalities on BMP/LFTs. Urinalysis reveals likely contamination. CT abdomen/pelvis does reveal multiple etiologies including acute diverticulitis as well as signs of possible emphysematous gallbladder. Right upper quadrant recommended. Will order right upper quadrant ultrasound. Right upper quadrant ultrasound does confirm as evidence of cholecystitis. Will discuss with surgery. Patient will admitted to Dr. Dia service, general surgery. Prior medical records reviewed Vital Signs: reviewed and remarkable for no significant abnormalities Differential diagnosis: Appendicitis, ovarian cyst, ovarian torsion, ectopic , TOA, PID, diverticulitis, UTI, obstruction, mesenteric ischemia, aortic pathology, inflammatory bowel disease, renal colic, PUD, pancreatitis, biliary pathology, hernia, volvulus, constipation, as well as other pathologies. ER treatment provided: See below Diagnostics interpreted by me: ECG: ECG reviewed by me with normal sinus rhythm, rate 75, normal axis, normal NV, normal QRS, normal QTc, no ST segment elevations consistent with STEMI criteria Cardiac Monitoring: An order was placed for continuous cardiac monitoring. The monitor shows a rate of with rhythm. Laboratory studies: As stated above and show below. Imaging studies: See below. Radiographic imaging was reviewed by myself Consultation(s): Dr. Dia, surgery Past Med/Surg History Medical History Difficult intravenous access Very poor access per pt (OR made aware) Diverticular disease GERD (gastroesophageal reflux disease) Kidney stones Low blood pressure Chronic, baseline 80s/60s per PAT RN phone interview BP 110/66 per recent PCP office visit 02/16/22 Multiple hereditary exostoses Obesity Topamax for weight loss PVC's (premature ventricular contractions) Reason for metoprolol Follows with Dr. Aaron at [facility] Sleep apnea No CPAP (d/t recall) UTI (urinary tract infection) Surgical History History of cardiac radiofrequency ablation Approximately 2 years ago ([facility], [place], operated by [facility]) r/t PVCs History of section x3 History of colonoscopy History of cystoscopy Cystoscopy, Left stent insertion (02/08/22): MAC at [facility]. No issues noted per post-op anesthesia progress note. History of esophagogastroduodenoscopy (EGD) History of tooth extraction Hx of joint surgery x several related to [facility], last surgery over 27 yrs ago, has involved fingers, humerus, wrists, ribs, knees, ankles, heels Family History Other No significant family history Social History Smoking Status: Never smoker Second Hand Exposure: No; Do You Dip or Chew Tobacco: No; Tobacco Cessation Education Requested by Patient: No Hx Alcohol Use: Yes Hx Substance Use: No Preferred Language: [place] Communication Ability: Effective Supervisor Joiners Required: No Beliefs That Will Affect Care: None Current Living Situation: Spouse Other Information That Helps Us Care for You: No Feels Safe at Home: Yes Safety Concerns: Feels Safe At This Time Assistive Devices: Glasses Allergies Allergies Allergy/AdvReac Type Severity Reaction Status Date / Time hydromorphone [From Dilaudid] Allergy Unknown Unknown Verified 03/10/22 10:07 meperidine AdvReac Severe Seizure Verified 03/10/22 10:07 (as child) morphine AdvReac Intermediate Irritable Verified 04/01/23 08:16 Home Meds Home Medications Medication Instructions Recorded Confirmed conj estrogen-medroxyprogesterone 1 tab PO HS 12/10/20 03/10/22 0.45 mg-1.5 mg tablet (Prempro) lidocaine 5 % topical patch 1 patch topical DAILY PRN Pain 12/10/20 03/10/22 trazodone 100 mg tablet 200 mg PO HS 12/10/20 03/10/22 diclofenac sodium 75 mg 75 mg PO BID PRN Pain, Severe 08/16/21 03/10/22 tablet,delayed release phentermine 37.5 mg tablet 37.5 mg PO PM 08/16/21 03/10/22 metoprolol succinate 25 mg 25 mg PO DAILY PRN PVC'S 02/08/22 03/10/22 tablet,extended release 24 hr naltrexone 50 mg tablet 12.5 mg PO DAILY 02/08/22 03/10/22 omeprazole 20 mg tablet,delayed 20 mg PO DAILY PRN Heartburn 02/08/22 03/10/22 release spironolactone 100 mg tablet 100 mg PO QAM 02/08/22 03/10/22 topiramate 50 mg tablet 50 mg PO PM 02/08/22 03/10/22 Previous Rx's Medication Instructions Recorded fluconazole 200 mg tablet 200 mg PO QAM #2 tabs 02/13/22 oxybutynin chloride 5 mg 5 mg PO QAM #10 tabs 02/13/22 tablet,extended release 24 hr oxycodone 5 mg tablet 5 mg PO Q8H PRN pain #8 tabs 02/13/22 phenazopyridine 100 mg tablet 100 mg PO TID PRN pain #30 tabs 02/13/22 tamsulosin 0.4 mg capsule 0.4 mg PO QAM #30 caps 02/13/22 amoxicillin 875 mg-potassium 1 tab PO BID #14 tabs 02/20/22 clavulanate 125 mg tablet sulfamethoxazole 800 1 tab PO BID #14 tabs 03/10/22 mg-trimethoprim 160 mg tablet (Bactrim DS) Results & Data (ED) Vital Signs Vital Signs - 24 hr 03/31/23 14:38 03/31/23 15:36 03/31/23 15:57 Temperature 36.8 C Temperature Source Temporal Artery Scan Pulse Rate 108 H 79 Pulse Rate [Apical] 103 H Pulse Rhythm [Apical] Regular Respiratory Rate 18 12 Respiratory Effort / Characteristics Non-Labored Respiratory Depth Normal Respiratory Pattern Regular Blood Pressure 92/72 L Blood Pressure [Right Arm] 96/64 L Blood Pressure Mean 78 Blood Pressure Mean [Right Arm] 74 Blood Pressure Position [Right Arm] Lying Pulse Oximetry 95 97 Oxygen Delivery Method Room Air Room Air Sepsis Recent Fever Within 48 Hours No Sepsis New/Unexplained Change in Mental Status No Sepsis Action Taken by Nursing No Action Required 03/31/23 17:00 03/31/23 19:46 03/31/23 19:57 Temperature Temperature Source Pulse Rate 79 Pulse Rate [Apical] 73 70 Pulse Rhythm [Apical] Respiratory Rate 20 18 Respiratory Effort / Characteristics Non-Labored Spontaneous Respiratory Depth Normal Respiratory Pattern Blood Pressure Blood Pressure [Right Arm] 97/63 L 98/67 L Blood Pressure Mean Blood Pressure Mean [Right Arm] 74 77 Blood Pressure Position [Right Arm] Pulse Oximetry 98 98 Oxygen Delivery Method Room Air Room Air Sepsis Recent Fever Within 48 Hours Sepsis New/Unexplained Change in Mental Status Sepsis Action Taken by Nursing Laboratory Data 03/31/23 16:15 03/31/23 16:15 Lab Results 03/31/23 03/31/23 03/31/23 Range/Units 16:15 16:15 18:43 WBC 11.35 H (4.8-10.8) K/ul RBC 4.68 (4.20-5.40) M/uL Hgb 14.4 (12.0-16.0) g/dl Hct 42.0 (37.0-47.0) % MCV 89.7 (80.0-100.0) fL MCH 30.8 (25.0-34.0) pg MCHC 34.3 (32.0-36.0) g/dL RDW Std Deviation 41.0 (36.4-46.3) fL RDW Coeff of Jovan 12.5 (11.5-14.5) % Plt Count 277 (130-400) K/uL MPV 10.3 (9.4-12.4) fL Immature Gran % (Auto) 0.3 % Neut % (Auto) 70.4 % Lymph % (Auto) 19.0 % [place] % (Auto) 9.4 % Eos % (Auto) 0.6 % Baso % (Auto) 0.3 % Neut # (Auto) 7.99 H (1.40-6.50) K/uL Lymph # (Auto) 2.16 (1.20-3.40) K/uL [place] # (Auto) 1.07 H (0.11-0.59) K/uL Eos # (Auto) 0.07 (0.00-0.50) K/uL Baso # (Auto) 0.03 (0.00-0.20) K/uL Immature Gran # (Auto) 0.03 (0.01-0.20) K/uL Sodium 138 (136-145) mmol/L Potassium 3.7 (3.5-5.1) mmol/L Chloride 104 (98-107) mmol/L Carbon Dioxide 28 (21-32) mmol/L Anion Gap 6 (3-11) BUN 10 (6-23) mg/dl Creatinine 0.81 (0.6-1.2) mg/dl Est Cr Clr Drug Dosing 83.6 ml/min Est GFR ( Amer) 96.1 ml/min Est GFR (Non-Af Amer) 82.9 ml/min BUN/Creatinine Ratio 12.3 (10-20) Glucose 74 (70-99(Fasting)) mg/dl Calcium 9.0 (8.6-10.3) mg/dl Total Bilirubin 0.7 (0.2-1.0) mg/dl AST 12 L (13-39) U/L ALT 11 (7-52) U/L Alkaline Phosphatase 91 (34-104) U/L Total Protein 7.2 (6.0-8.3) gm/dl Albumin 4.1 (3.4-5.0) gm/dl Globulin 3.1 (2.5-4.0) gm/dl Albumin/Globulin Ratio 1.3 (0.9-2) Lipase 26 (11-82) U/L Urine Color Yellow Urine Appearance Clear (Clear) Urine pH 6.5 (4.5-7.5) Ur Specific Sharon > 1.045 H (1.000-1.030) Urine Protein Negative (Negative) Urine Glucose (UA) Negative (Negative) Urine Ketones Negative (Negative) Urine Blood Negative (Negative) Urine Nitrite Negative (Negative) Urine Bilirubin Negative (Negative) Urine Urobilinogen Negative (Negative) Ur Leukocyte Esterase Trace H (Negative) Urine WBC (Auto) 5-10 H (0-5) /hpf Urine RBC (Auto) 0-4 (0-4) /hpf U Hyaline Cast (Auto) 1-5 (0-5) /lpf U Epithel Cells (Auto) >30 H (0-5) /lpf Urine Bacteria (Auto) Negative (Negative) Administered Medications Promethazine HCl 12.5 mg/ (Sodium Chloride) 50.5 mls @ 204 mls/hr IV Q6H PRN PRN Reason: Nausea And Vomiting Stop: 04/30/23 21:34 Last Infusion: 03/31/23 22:45 Dose: 0 mls/hr Documented By: Admin: 03/31/23 22:08 Dose: 204 mls/hr Documented By: IRINA Lactated Ringer's (Lr) 1,000 mls @ 100 mls/hr IV .Q10H TANIA Stop: 04/30/23 21:34 Last Admin: 04/01/23 07:27 Dose: 100 mls/hr Documented By: Infusion: 04/01/23 07:27 Dose: 100 mls/hr Documented By: Admin: 03/31/23 21:57 Dose: 100 mls/hr Documented By: IRINA Piperacillin Sod/Tazobactam (Sod 4.5 gm/ Dextrose) 100 mls @ 25 mls/hr IV Q8H TANIA; Protocol Stop: 04/11/23 02:59 Last Infusion: 04/01/23 05:40 Dose: 0 mls/hr Documented By: Admin: 04/01/23 02:23 Dose: 25 mls/hr Documented By: IRINA Discontinued Medications Diphenhydramine HCl (Diphenhydramine 50 Mg/Ml Vial) Confirm Administered Dose 50 mg .ROUTE .STK-MED ONE Stop: 04/01/23 04:43 Last Admin: 04/01/23 04:43 Dose: 50 mg Documented By: IRINA Diphenhydramine HCl (Diphenhydramine 50 Mg/Ml Vial) 25 mg IV NOW STA Stop: 04/01/23 05:50 Last Admin: 04/01/23 05:50 Dose: 25 mg Documented By: IRINA Hydromorphone HCl (Hydromorphone Inj 0.5 Mg/0.5 Ml Syr) 0.5 mg IV NOW STA Stop: 03/31/23 20:15 Last Admin: 03/31/23 20:47 Dose: Not Given Documented By: ROSA Acetaminophen (Ofirmev) 1,000 mg in 100 mls @ 400 mls/hr IV NOW STA Stop: 03/31/23 15:26 Last Infusion: 03/31/23 16:40 Dose: 0 mls/hr Documented By: Admin: 03/31/23 16:22 Dose: 400 mls/hr Documented By: SHEY Sodium Chloride (Nss) 1,000 mls @ 999 mls/hr IV .Q1H1M ONE Stop: 03/31/23 16:32 Last Infusion: 03/31/23 17:23 Dose: 0 mls/hr Documented By: Admin: 03/31/23 16:22 Dose: 999 mls/hr Documented By: SHEY Ceftriaxone Sodium 2,000 mg/ (Dextrose) 70 mls @ 100 mls/hr IV Q24H TANIA; Protocol Stop: 04/02/23 19:44 Last Infusion: 03/31/23 21:59 Dose: 0 mls/hr Documented By: Admin: 03/31/23 21:02 Dose: 100 mls/hr Documented By: ROSA Metronidazole (Flagyl) 500 mg in 100 mls @ 100 mls/hr IV NOW STA; Protocol Stop: 03/31/23 20:42 Last Infusion: 03/31/23 20:54 Dose: 0 mls/hr Documented By: Admin: 03/31/23 19:51 Dose: 100 mls/hr Documented By: ROSA Piperacillin Sod/Tazobactam (Sod 4.5 gm/ Dextrose) 100 mls @ 200 mls/hr IV NOW ONE; Protocol Stop: 03/31/23 22:29 Last Infusion: 03/31/23 22:45 Dose: 0 mls/hr Documented By: Admin: 03/31/23 22:09 Dose: 200 mls/hr Documented By: IRINA Ioversol (Optiray 320 100ml) 90 ml IV ONCE ONE Stop: 03/31/23 17:05 Last Admin: 03/31/23 17:05 Dose: 90 ml Documented By: ALIE Ketorolac Tromethamine (Ketorolac Tromethamine 15 Mg/Ml Vial) 15 mg IV NOW ONE Stop: 03/31/23 20:56 Last Admin: 03/31/23 21:00 Dose: 15 mg Documented By: ROSA Lorazepam (Lorazepam 0.5 Mg Tab) 0.5 mg PO NOW STA Stop: 04/01/23 02:36 Last Admin: 04/01/23 03:51 Dose: Not Given Documented By: IRINA Lorazepam (Lorazepam 2 Mg/1 Ml Vial) 0.25 mg IV NOW STA Stop: 04/01/23 03:21 Last Admin: 04/01/23 03:39 Dose: 0.25 mg Documented By: IRINA Morphine Sulfate (Morphine Sulfate 4 Mg/Ml 1 Ml Carp\Vial) 4 mg IV Q3H PRN PRN Reason: Pain (6,7,8,9,10) Stop: 04/14/23 21:34 Last Admin: 04/01/23 04:44 Dose: 4 mg Documented By: Admin: 04/01/23 00:27 Dose: 4 mg Documented By: IRINA Ondansetron HCl (Ondansetron Inj 2 Mg/Ml 2 Ml Vial) 4 mg IV NOW STA Stop: 03/31/23 15:33 Last Admin: 03/31/23 16:22 Dose: 4 mg Documented By: SHEY Ondansetron HCl (Ondansetron Inj 2 Mg/Ml 2 Ml Vial) 4 mg IV NOW STA Stop: 03/31/23 20:15 Last Admin: 03/31/23 20:47 Dose: 4 mg Documented By: ROSA Discharge Plan Visit Data Chief Complaint: Abdominal Pain Stated Complaint: ABDOMINAL PAIN ED Provider: Stephani Chaudhari Discharge Problem: Acute diverticulitis, Acute emphysematous cholecystitis Patient Disposition: Admitted As Inpatient Discharge Instructions Interventions: ED Discharge Assessment Last Done: 03/31/23 21:12
[2023-03-31] MEDS ORDERED: ONDANSETRON INJ 2 MG/ML 2 ML VIAL IV STA ×2 (15:32→20:14)
[2023-03-31] MEDS ORDERED: SODIUM CHLORIDE 0.9% 1,000 ML IV ONE (15:32)
[2023-03-31 16:39] LABS: Basophils # (auto) 0.03 K/uL (0.00-0.20); Basophils % (auto) 0.3 %; Eosinophils # (auto) 0.07 K/uL (0.00-0.50); Eosinophils % (auto) 0.6 %; Hemoglobin 14.4 g/dl (12.0-16.0); Immature Granulocytes # (auto) 0.03 K/uL (0.01-0.20); Immature Granulocytes % (auto) 0.3 %; Lymphocytes # (auto) 2.16 K/uL (1.20-3.40); Mean Corpuscular Hemoglobin 30.8 pg (25.0-34.0); Mean Corpuscular Hgb Conc 34.3 g/dL (32.0-36.0); Mean Corpuscular Volume 89.7 fL (80.0-100.0); Mean Platelet Volume 10.3 fL (9.4-12.4); Monocytes # (auto) 1.07 K/uL (0.11-0.59); Monocytes % (auto) 9.4 %; Neutrophils # (auto) 7.99 K/uL (1.40-6.50); Neutrophils % (auto) 70.4 %; Platelet Count 277 K/uL (130-400); RDW Coefficient of Variation 12.5 % (11.5-14.5); Red Blood Count 4.68 M/uL (4.20-5.40); White Blood Count 11.35 K/ul (4.8-10.8)
[2023-03-31 16:52] LABS: Albumin Globulin Ratio 1.3 (0.9-2); Albumin Level 4.1 gm/dl (3.4-5.0); BUN Creatinine Ratio 12.3 (10-20); Bilirubin,Total 0.7 mg/dl (0.2-1.0); Creatinine Clr Calc Pharmacy 83.6 ml/min; Est GFR (African American) 96.1 ml/min; Est GFR (Non-African American) 82.9 ml/min; Globulin 3.1 gm/dl (2.5-4.0); Potassium 3.7 mmol/L (3.5-5.1); Total Protein 7.2 gm/dl (6.0-8.3)
[2023-03-31] MEDS ORDERED: OPTIRAY 320 100ml IV ONE (17:04)
--- NOTE | 2023-03-31 17:53 | CT Scan Report ---
CT OF THE ABDOMEN AND PELVIS WITH CONTRAST CLINICAL HISTORY: Diffuse abd pain x2 weeks, hx of diverticulitis. COMPARISON STUDY: CT of the abdomen and pelvis March 10, 2022. Renal ultrasound June 01, 2022. TECHNIQUE: Following IV administration of 90 mL of Optiray, axial images of the abdomen and pelvis we re obtained from the lung bases to the proximal femurs. Images were reviewed in the axial, sagittal, and coronal planes. IV contrast was administered without complication. Automated exposure control wa s utilized for the study. A dose lowering technique was utilized adhering to the principles of ALARA . CT DOSE: 1477.61 mGy.cm FINDINGS: Lung bases are unremarkable. No pneumatosis, free air or portal venous gas is present. Ther e is no biliary or pancreatic ductal dilatation. There are multiple gallstones within the gallbladder . Of note, there is gas within the nondependent aspect of the gallbladder. Possible gas within the wa ll of the gallbladder fundus is present. There is no gallbladder wall thickening. No pericholecystic stranding is noted. There may be trace pneumobilia. There is no hydronephrosis. Calcifications within a left-sided calyceal diverticulum versus calyx are noted. These measure up to 4 mm. There are no ur eteral calculi. There is no hydronephrosis. Extensive colonic diverticulosis is noted. There is an in flamed diverticulum of the distal descending colon. There is moderate associated inflammation. A smal l amount of fluid is present. Is no free air or abscess. The appendix is normal. Major vasculature is patent. IMPRESSION: 1. Acute diverticulitis of the distal descending colon. Moderate inflammation. Small amount of fluid. No free air or abscess. 2. Cholelithiasis. In addition, intraluminal gas within the gallbladder and possible gas within the w all of the gallbladder fundus. Trace pneumobilia. Emphysematous cholecystitis cannot be excluded blount kulwinder no pericholecystic stranding or gallbladder wall thickening. Therefore, correlation with right up per quadrant pain and right upper quadrant ultrasound is recommended. Findings discussed with Dr. Yael daly at time of dictation. ACT 112: Negative or not required by law. Electronically signed by: Abiodun Antunez M.D. 03/31/2023 5:50 PM
[2023-03-31 19:02] LABS: Appearance Urine Clear (Clear); Bacteria Urine Automated Negative (Negative); Bilirubin Urine Negative (Negative); Blood Urine Negative (Negative); Color Urine Yellow; Epithelial Cell Urine Auto >30 /lpf (0-5); Glucose Urine UA Negative (Negative); Ketones Urine Negative (Negative); Leukocyte Esterase Urine Trace (Negative); Nitrite Urine Negative (Negative); Protein Urine Negative (Negative); RBC Urine Automated 0-4 /hpf (0-4); Specific Gravity Urine > 1.045 (1.000-1.030); Urobilinogen Urine Negative (Negative); pH Urine 6.5 (4.5-7.5)
--- NOTE | 2023-03-31 19:27 | Ultrasound Report ---
US gallbladder CLINICAL HISTORY: Concern for cholecystitis. COMPARISON STUDY: CT of the abdomen and pelvis performed earlier today. Right upper quadrant ultraso und February 10, 2022. FINDINGS: No hepatic lesions are present. There is no biliary ductal dilatation. Pancreatic body is n ormal. Head and tail are slightly obscured. There are multiple shadowing stones within the gallbladde r. Intraluminal echogenic foci within the gallbladder are noted. There is also echogenic material wit hin the gallbladder fundus with dirty shadowing, likely within the wall. The patient was tender over the gallbladder during this exam. No gallbladder wall thickening is present. There is no pericholecys tic fluid. There is no biliary ductal dilatation. No right hydronephrosis. IMPRESSION: 1. Cholelithiasis with gas within the gallbladder lumen and probable gas within the wall of the gallb ladder fundus. Positive sonographic Guidry sign. The findings are suspicious for emphysematous cholec ystitis. 2. No biliary ductal dilatation. ACT 112: Negative or not required by law. Electronically signed by: Abiodun Antunez M.D. 03/31/2023 7:24 PM
[2023-03-31] MEDS ORDERED: metroNIDAZOLE 500 MG/100 ML BAG IV STA (19:43)
[2023-03-31] MEDS ORDERED: cefTRIAXone SODIUM 2,000 MG in DEXTROSE 5% 50 ML IV SCH (19:45)
--- NOTE | 2023-03-31 19:59 | History & Physical Report ---
Date of Service March 31, 2023 Assessment & Plan (1) Acute cholecystitis: (2) Diverticulitis: Plan 52-year-old woman with acute cholecystitis and what appears to have a mild uncomplicated diverticulitis. We will admit her to the hospital and put her on IV antibiotics. Pain control and IV fluids. She will be n.p.o. We will plan for OR tomorrow for laparoscopic cholecystectomy. We will have the hospitalist follow. History of Present Illness Primary Care Provider: Luis Domingo DO 52-year-old woman presents with few week history of diffuse abdominal pain. She has a history of diverticulitis. She states yesterday that the pain became significantly worse in the right side as well. And radiates to the back. She has been cold. She denies fevers. She has been having normal bowel movements. She has had decreased food intake. She has a history of C-sections and a laparoscopy in the past. Allergies Allergy/AdvReac Type Severity Reaction Status Date / Time hydromorphone [From Dilaudid] Allergy Unknown Unknown Verified 03/10/22 10:07 meperidine AdvReac Severe Seizure Verified 03/10/22 10:07 (as child) Home Medications Medication Instructions Recorded Confirmed Type conj estrogen-medroxyprogesterone 1 tab PO HS 12/10/20 03/10/22 History 0.45 mg-1.5 mg tablet (Prempro) lidocaine 5 % topical patch 1 patch topical DAILY PRN Pain 12/10/20 03/10/22 History trazodone 100 mg tablet 200 mg PO HS 12/10/20 03/10/22 History diclofenac sodium 75 mg 75 mg PO BID PRN Pain, Severe 08/16/21 03/10/22 History tablet,delayed release phentermine 37.5 mg tablet 37.5 mg PO PM 08/16/21 03/10/22 History metoprolol succinate 25 mg 25 mg PO DAILY PRN PVC'S 02/08/22 03/10/22 History tablet,extended release 24 hr naltrexone 50 mg tablet 12.5 mg PO DAILY 02/08/22 03/10/22 History omeprazole 20 mg tablet,delayed 20 mg PO DAILY PRN Heartburn 02/08/22 03/10/22 History release spironolactone 100 mg tablet 100 mg PO QAM 02/08/22 03/10/22 History topiramate 50 mg tablet 50 mg PO PM 02/08/22 03/10/22 History fluconazole 200 mg tablet 200 mg PO QAM #2 tabs 02/13/22 03/10/22 Rx oxybutynin chloride 5 mg 5 mg PO QAM #10 tabs 02/13/22 03/10/22 Rx tablet,extended release 24 hr oxycodone 5 mg tablet 5 mg PO Q8H PRN pain #8 tabs 02/13/22 03/10/22 Rx phenazopyridine 100 mg tablet 100 mg PO TID PRN pain #30 tabs 02/13/22 03/10/22 Rx tamsulosin 0.4 mg capsule 0.4 mg PO QAM #30 caps 02/13/22 03/10/22 Rx amoxicillin 875 mg-potassium 1 tab PO BID #14 tabs 02/20/22 03/10/22 Rx clavulanate 125 mg tablet sulfamethoxazole 800 1 tab PO BID #14 tabs 03/10/22 Rx mg-trimethoprim 160 mg tablet (Bactrim DS) Past Med/Surg History Medical History Difficult intravenous access Very poor access per pt (OR made aware) Diverticular disease GERD (gastroesophageal reflux disease) Kidney stones Low blood pressure Chronic, baseline 80s/60s per PAT RN phone interview BP 110/66 per recent PCP office visit 02/16/22 Multiple hereditary exostoses Obesity Topamax for weight loss PVC's (premature ventricular contractions) Reason for metoprolol Follows with Dr. Aaron at [facility] Sleep apnea No CPAP (d/t recall) UTI (urinary tract infection) Surgical History History of cardiac radiofrequency ablation Approximately 2 years ago ([facility]) r/t PVCs History of section x3 History of colonoscopy History of cystoscopy Cystoscopy, Left stent insertion (02/08/22): MAC at [facility]. No issues noted per post-op anesthesia progress note. 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 Beliefs That Will Affect Care: None Current Living Situation: Spouse Feels Safe at Home: Yes Assistive Devices: Glasses Review of Systems Review of Systems: All systems reviewed & are unremarkable except as noted in HPI & below Physical Exam Constitutional: WD/WN, vitals as above Eyes: PERRL, conjunctivae normal, anicteric sclerae Neck: trachea midline, no thyromegaly Respiratory: normal respiratory effort; no respiratory distress and no labored breathing Cardiovascular: Rate/Rhythm: regular rate and regular rhythm Gastrointestinal (Abdomen): Inspection/Auscultation: abdomen normal to inspection; abdomen not distended Percussion/Palpation: + abdomen tender (Diffuse) and abdomen soft; no guarding and abdomen not rigid Skin: no rashes, warm and dry Psychiatric: A+Ox3, euthymic affect Results & Data Results & Data Vital Signs (Past 12 Hours) Vital Signs Temp Pulse Pulse Resp BP BP Pulse Ox 03/31/23 17:00 73 20 97/63 L 98 03/31/23 15:57 79 03/31/23 15:36 103 H 12 96/64 L 97 03/31/23 14:38 36.8 C 108 H 18 92/72 L 95 O2 Del Method 03/31/23 17:00 Room Air 03/31/23 15:57 03/31/23 15:36 Room Air 03/31/23 14:38 Room Air Laboratory Results 03/31/23 03/31/23 03/31/23 Range/Units 18:43 16:15 16:15 WBC 11.35 H (4.8-10.8) K/ul RBC 4.68 (4.20-5.40) M/uL Hgb 14.4 (12.0-16.0) g/dl Hct 42.0 (37.0-47.0) % MCV 89.7 (80.0-100.0) fL MCH 30.8 (25.0-34.0) pg MCHC 34.3 (32.0-36.0) g/dL RDW Std Deviation 41.0 (36.4-46.3) fL RDW Coeff of Jovan 12.5 (11.5-14.5) % Plt Count 277 (130-400) K/uL MPV 10.3 (9.4-12.4) fL Immature Gran % (Auto) 0.3 % Neut % (Auto) 70.4 % Lymph % (Auto) 19.0 % [place] % (Auto) 9.4 % Eos % (Auto) 0.6 % Baso % (Auto) 0.3 % Neut # (Auto) 7.99 H (1.40-6.50) K/uL Lymph # (Auto) 2.16 (1.20-3.40) K/uL [place] # (Auto) 1.07 H (0.11-0.59) K/uL Eos # (Auto) 0.07 (0.00-0.50) K/uL Baso # (Auto) 0.03 (0.00-0.20) K/uL Immature Gran # (Auto) 0.03 (0.01-0.20) K/uL Sodium 138 (136-145) mmol/L Potassium 3.7 (3.5-5.1) mmol/L Chloride 104 (98-107) mmol/L Carbon Dioxide 28 (21-32) mmol/L Anion Gap 6 (3-11) BUN 10 (6-23) mg/dl Creatinine 0.81 (0.6-1.2) mg/dl Est Cr Clr Drug Dosing 83.6 ml/min Est GFR ( Amer) 96.1 ml/min Est GFR (Non-Af Amer) 82.9 ml/min BUN/Creatinine Ratio 12.3 (10-20) Glucose 74 (70-99(Fasting)) mg/dl Calcium 9.0 (8.6-10.3) mg/dl Total Bilirubin 0.7 (0.2-1.0) mg/dl AST 12 L (13-39) U/L ALT 11 (7-52) U/L Alkaline Phosphatase 91 (34-104) U/L Total Protein 7.2 (6.0-8.3) gm/dl Albumin 4.1 (3.4-5.0) gm/dl Globulin 3.1 (2.5-4.0) gm/dl Albumin/Globulin Ratio 1.3 (0.9-2) Lipase 26 (11-82) U/L Urine Color Yellow Urine Appearance Clear (Clear) Urine pH 6.5 (4.5-7.5) Ur Specific [place] > 1.045 H (1.000-1.030) Urine Protein Negative (Negative) Urine Glucose (UA) Negative (Negative) Urine Ketones Negative (Negative) Urine Blood Negative (Negative) Urine Nitrite Negative (Negative) Urine Bilirubin Negative (Negative) Urine Urobilinogen Negative (Negative) Ur Leukocyte Esterase Trace H (Negative) Urine WBC (Auto) 5-10 H (0-5) /hpf Urine RBC (Auto) 0-4 (0-4) /hpf U Hyaline Cast (Auto) 1-5 (0-5) /lpf U Epithel Cells (Auto) >30 H (0-5) /lpf Urine Bacteria (Auto) Negative (Negative) Diagnostic Findings US gallbladder CLINICAL HISTORY: Concern for cholecystitis. COMPARISON STUDY: CT of the abdomen and pelvis performed earlier today. Right upper quadrant ultrasound February 10, 2022. FINDINGS: No hepatic lesions are present. There is no biliary ductal dilatation. Pancreatic body is normal. Head and tail are slightly obscured. There are multiple shadowing stones within the gallbladder. Intraluminal echogenic foci within the gallbladder are noted. There is also echogenic material within the gallbladder fundus with dirty shadowing, likely within the wall. The patient was tender over the gallbladder during this exam. No gallbladder wall thickening is present. There is no pericholecystic fluid. There is no biliary ductal dilatation. No right hydronephrosis. IMPRESSION: 1. Cholelithiasis with gas within the gallbladder lumen and probable gas within the wall of the gallbladder fundus. Positive sonographic Guidry sign. The findings are suspicious for emphysematous cholecystitis. 2. No biliary ductal dilatation.
[2023-03-31] MEDS ORDERED: HYDROmorphone INJ 0.5 MG/0.5 ML SYR IV STA (20:14)
[2023-03-31] MEDS ORDERED: KETOROLAC TROMETHAMINE 15 MG/ML VIAL IV ONE (20:55)
--- NOTE | 2023-03-31 20:57 | Consultation ---
Date of Consultation March 31, 2023 Assessment & Plan (1) Acute cholecystitis: 52-year-old female with past med significant for PVCs, varicose veins of both lower extremity, hereditary multiple exostosis, myofascial pain syndrome, osteochondroma, obesity presents with abdominal pain and found to cholecystitis and diverticulitis. Acute cholecystitis IV antibiotics IV fluids Pain control-changed morphine to Toradol as she is having significant itching with morphine. N.p.o. Management as per surgery Acute diverticulitis IV antibiotics N.p.o. for now and IV fluids Pain control Needs colonoscopy in 6 to 8 weeks History of PVCs Patient states currently she no longer taking Toprol We will monitor DVT prophylaxis and disposition as per surgery History of Present Illness Reason for Consultation: Acute cholecystitis and or diverticulitis History of Present Illness 52-year-old female with past med significant for PVCs, varicose veins of both lower extremity, hereditary multiple exostosis, myofascial pain syndrome, osteochondroma, obesity presents with abdominal pain and found to have cholecystitis and diverticulitis. Patient is having ongoing abdomen pain since last 1 month but since yesterday the pain got worse associated with nausea and dry heaves. No vomiting. Had a normal bowel movement. Denies any fevers. Feeling hot and cold but also says she is going through menopause. No chest pain or shortness of breath. No headaches. No runny nose or sore throat. No cough. Currently hemodynamically stable. Past medical history as mentioned above Past surgical history , colonoscopy, endometrial ablation, IM rodding left arm, surgeries for osteochondroma, ligation of oviducts Social history. . No smoking. No alcohol. No drug use. Family history. Father had asthma. Sister bladder cancer. Sister has lupus. Sister has esophagitis. Sister has BASIL. Maternal grandfather had heart disorder. Brother has bipolar disorder. Brother has multiple hereditary exostosis. Daughter has multiple hereditary exostosis. Son has multiple hereditary exostosis. Daughter has POTS. Maternal grandmother had uterine cancer. Allergies Allergy/AdvReac Type Severity Reaction Status Date / Time hydromorphone [From Dilaudid] Allergy Unknown Unknown Verified 03/10/22 10:07 meperidine AdvReac Severe Seizure Verified 03/10/22 10:07 (as child) morphine AdvReac Intermediate Irritable Verified 04/01/23 07:11 Home Medications Medication Instructions Recorded Confirmed Type conj estrogen-medroxyprogesterone 1 tab PO HS 12/10/20 03/10/22 History 0.45 mg-1.5 mg tablet (Prempro) lidocaine 5 % topical patch 1 patch topical DAILY PRN Pain 12/10/20 03/10/22 History trazodone 100 mg tablet 200 mg PO HS 12/10/20 03/10/22 History diclofenac sodium 75 mg 75 mg PO BID PRN Pain, Severe 08/16/21 03/10/22 History tablet,delayed release phentermine 37.5 mg tablet 37.5 mg PO PM 08/16/21 03/10/22 History metoprolol succinate 25 mg 25 mg PO DAILY PRN PVC'S 02/08/22 03/10/22 History tablet,extended release 24 hr naltrexone 50 mg tablet 12.5 mg PO DAILY 02/08/22 03/10/22 History omeprazole 20 mg tablet,delayed 20 mg PO DAILY PRN Heartburn 02/08/22 03/10/22 History release spironolactone 100 mg tablet 100 mg PO QAM 02/08/22 03/10/22 History topiramate 50 mg tablet 50 mg PO PM 02/08/22 03/10/22 History fluconazole 200 mg tablet 200 mg PO QAM #2 tabs 02/13/22 03/10/22 Rx oxybutynin chloride 5 mg 5 mg PO QAM #10 tabs 02/13/22 03/10/22 Rx tablet,extended release 24 hr oxycodone 5 mg tablet 5 mg PO Q8H PRN pain #8 tabs 02/13/22 03/10/22 Rx phenazopyridine 100 mg tablet 100 mg PO TID PRN pain #30 tabs 02/13/22 03/10/22 Rx tamsulosin 0.4 mg capsule 0.4 mg PO QAM #30 caps 02/13/22 03/10/22 Rx amoxicillin 875 mg-potassium 1 tab PO BID #14 tabs 02/20/22 03/10/22 Rx clavulanate 125 mg tablet sulfamethoxazole 800 1 tab PO BID #14 tabs 03/10/22 Rx mg-trimethoprim 160 mg tablet (Bactrim DS) Patient History Medical History Difficult intravenous access Very poor access per pt (OR made aware) Diverticular disease GERD (gastroesophageal reflux disease) Kidney stones Low blood pressure Chronic, baseline 80s/60s per PAT RN phone interview BP 110/66 per recent PCP office visit 02/16/22 Multiple hereditary exostoses Obesity Topamax for weight loss PVC's (premature ventricular contractions) Reason for metoprolol Follows with Dr. Aaron at [facility] Sleep apnea No CPAP (d/t recall) UTI (urinary tract infection) Surgical History History of cardiac radiofrequency ablation Approximately 2 years ago ([facility]) r/t PVCs History of section x3 History of colonoscopy History of cystoscopy Cystoscopy, Left stent insertion (02/08/22): MAC at [facility]. No issues noted per post-op anesthesia progress note. History of esophagogastroduodenoscopy (EGD) History of tooth extraction Hx of joint surgery x several related to MHE, last surgery over 27 yrs ago, has involved fingers, humerus, wrists, ribs, knees, ankles, heels Family History Other No significant family history Social History Smoking Status: Never smoker Second Hand Exposure: No; Do You Dip or Chew Tobacco: No; Tobacco Cessation Education Requested by Patient: No Hx Alcohol Use: Yes Hx Substance Use: No Preferred Language: Lithuanian Communication Ability: Effective [place] Required: No Beliefs That Will Affect Care: None Current Living Situation: Spouse Other Information That Helps Us Care for You: No Feels Safe at Home: Yes Safety Concerns: Feels Safe At This Time Assistive Devices: Glasses Review of Systems Review of Systems: All systems reviewed & are unremarkable except as noted in HPI & below Physical Exam Physical Exam: General- Not in distress. Head- atraumatic Eyes- PERRL. ENT- oropharynx clear Neck- supple, no JVD. Lungs- clear to auscultation, no wheezing or crackles. Heart- regular rhythm; no murmur, no gallop. Abdomen- normal bowel sounds, soft, tenderness in LLQ No distension. Extremities- no pretibial edema, no erythema seen. Neuro- alert, oriented x 3; PERRL, EOMI; no facial palsy; no dysarthria. Non focal. Skin- warm & dry Results & Data Vital Signs (Past 12 Hours) Vital Signs Temp Pulse Pulse Resp BP BP Pulse Ox 03/31/23 19:57 79 03/31/23 19:46 70 18 98/67 L 98 03/31/23 17:00 73 20 97/63 L 98 03/31/23 15:57 79 03/31/23 15:36 103 H 12 96/64 L 97 03/31/23 14:38 36.8 C 108 H 18 92/72 L 95 O2 Del Method 03/31/23 19:57 03/31/23 19:46 Room Air 03/31/23 17:00 Room Air 03/31/23 15:57 03/31/23 15:36 Room Air 03/31/23 14:38 Room Air Diagnostic Findings Laboratory Results WBC 11.35 K/ul (4.8-10.8) H 03/31/23 16:15 RBC 4.68 M/uL (4.20-5.40) 03/31/23 16:15 Hgb 14.4 g/dl (12.0-16.0) 03/31/23 16:15 Hct 42.0 % (37.0-47.0) 03/31/23 16:15 MCV 89.7 fL (80.0-100.0) 03/31/23 16:15 MCH 30.8 pg (25.0-34.0) 03/31/23 16:15 MCHC 34.3 g/dL (32.0-36.0) 03/31/23 16:15 RDW Std Deviation 41.0 fL (36.4-46.3) 03/31/23 16:15 RDW Coeff of Jovan 12.5 % (11.5-14.5) 03/31/23 16:15 Plt Count 277 K/uL (130-400) 03/31/23 16:15 MPV 10.3 fL (9.4-12.4) 03/31/23 16:15 Immature Gran % (Auto) 0.3 % 03/31/23 16:15 Neut % (Auto) 70.4 % 03/31/23 16:15 Lymph % (Auto) 19.0 % 03/31/23 16:15 [place] % (Auto) 9.4 % 03/31/23 16:15 Eos % (Auto) 0.6 % 03/31/23 16:15 Baso % (Auto) 0.3 % 03/31/23 16:15 Neut # (Auto) 7.99 K/uL (1.40-6.50) H 03/31/23 16:15 Lymph # (Auto) 2.16 K/uL (1.20-3.40) 03/31/23 16:15 Grayson # (Auto) 1.07 K/uL (0.11-0.59) H 03/31/23 16:15 Eos # (Auto) 0.07 K/uL (0.00-0.50) 03/31/23 16:15 Baso # (Auto) 0.03 K/uL (0.00-0.20) 03/31/23 16:15 Immature Gran # (Auto) 0.03 K/uL (0.01-0.20) 03/31/23 16:15 Sodium 138 mmol/L (136-145) 03/31/23 16:15 Potassium 3.7 mmol/L (3.5-5.1) 03/31/23 16:15 Chloride 104 mmol/L (98-107) 03/31/23 16:15 Carbon Dioxide 28 mmol/L (21-32) 03/31/23 16:15 Anion Gap 6 (3-11) 03/31/23 16:15 BUN 10 mg/dl (6-23) 03/31/23 16:15 Creatinine 0.81 mg/dl (0.6-1.2) 03/31/23 16:15 Est Cr Clr Drug Dosing 83.6 ml/min 03/31/23 16:15 Est GFR ( Amer) 96.1 ml/min 03/31/23 16:15 Est GFR (Non-Af Amer) 82.9 ml/min 03/31/23 16:15 BUN/Creatinine Ratio 12.3 (10-20) 03/31/23 16:15 Glucose 74 mg/dl (70-99(Fasting)) 03/31/23 16:15 Calcium 9.0 mg/dl (8.6-10.3) 03/31/23 16:15 Total Bilirubin 0.7 mg/dl (0.2-1.0) 03/31/23 16:15 AST 12 U/L (13-39) L 03/31/23 16:15 ALT 11 U/L (7-52) 03/31/23 16:15 Alkaline Phosphatase 91 U/L (34-104) 03/31/23 16:15 Total Protein 7.2 gm/dl (6.0-8.3) 03/31/23 16:15 Albumin 4.1 gm/dl (3.4-5.0) 03/31/23 16:15 Globulin 3.1 gm/dl (2.5-4.0) 03/31/23 16:15 Albumin/Globulin Ratio 1.3 (0.9-2) 03/31/23 16:15 Lipase 26 U/L (11-82) 03/31/23 16:15 Urine Color Yellow 03/31/23 18:43 Urine Appearance Clear (Clear) 03/31/23 18:43 Urine pH 6.5 (4.5-7.5) 03/31/23 18:43 Ur Specific [place] > 1.045 (1.000-1.030) H 03/31/23 18:43 Urine Protein Negative (Negative) 03/31/23 18:43 Urine Glucose (UA) Negative (Negative) 03/31/23 18:43 Urine Ketones Negative (Negative) 03/31/23 18:43 Urine Blood Negative (Negative) 03/31/23 18:43 Urine Nitrite Negative (Negative) 03/31/23 18:43 Urine Bilirubin Negative (Negative) 03/31/23 18:43 Urine Urobilinogen Negative (Negative) 03/31/23 18:43 Ur Leukocyte Esterase Trace (Negative) H 03/31/23 18:43 Urine WBC (Auto) 5-10 /hpf (0-5) H 03/31/23 18:43 Urine RBC (Auto) 0-4 /hpf (0-4) 03/31/23 18:43 U Hyaline Cast (Auto) 1-5 /lpf (0-5) 03/31/23 18:43 U Epithel Cells (Auto) >30 /lpf (0-5) H 03/31/23 18:43 Urine Bacteria (Auto) Negative (Negative) 03/31/23 18:43 Impressions Abdomen/Pelvis CT 03/31/23 15:12 CT OF THE ABDOMEN AND PELVIS WITH CONTRAST CLINICAL HISTORY: Diffuse abd pain x2 weeks, hx of diverticulitis. COMPARISON STUDY: CT of the abdomen and pelvis March 10, 2022. Renal ultrasound June 01, 2022. TECHNIQUE: Following IV administration of 90 mL of Optiray, axial images of the abdomen and pelvis were obtained from the lung bases to the proximal femurs. Images were reviewed in the axial, sagittal, and coronal planes. IV contrast was administered without complication. Automated exposure control was utilized for the study. A dose lowering technique was utilized adhering to the principles of ALARA. CT DOSE: 1477.61 mGy.cm FINDINGS: Lung bases are unremarkable. No pneumatosis, free air or portal venous gas is present. There is no biliary or pancreatic ductal dilatation. There are multiple gallstones within the gallbladder. Of note, there is gas within the nondependent aspect of the gallbladder. Possible gas within the wall of the gallbladder fundus is present. There is no gallbladder wall thickening. No pericholecystic stranding is noted. There may be trace pneumobilia. There is no hydronephrosis. Calcifications within a left-sided calyceal diverticulum versus calyx are noted. These measure up to 4 mm. There are no ureteral calculi. There is no hydronephrosis. Extensive colonic diverticulosis is noted. There is an inflamed diverticulum of the distal descending colon. There is moderate associated inflammation. A small amount of fluid is present. Is no free air or abscess. The appendix is normal. Major vasculature is patent. IMPRESSION: 1. Acute diverticulitis of the distal descending colon. Moderate inflammation. Small amount of fluid. No free air or abscess. 2. Cholelithiasis. In addition, intraluminal gas within the gallbladder and possible gas within the wall of the gallbladder fundus. Trace pneumobilia. Emphysematous cholecystitis cannot be excluded however no pericholecystic stranding or gallbladder wall thickening. Therefore, correlation with right upper quadrant pain and right upper quadrant ultrasound is recommended. Findings discussed with Dr. Chaudhari at time of dictation. ACT 112: Negative or not required by law. Electronically signed by: Abiodun Antunez M.D. 03/31/2023 5:50 PM Gallbladder Ultrasound 03/31/23 18:21 US gallbladder CLINICAL HISTORY: Concern for cholecystitis. COMPARISON STUDY: CT of the abdomen and pelvis performed earlier today. Right upper quadrant ultrasound February 10, 2022. FINDINGS: No hepatic lesions are present. There is no biliary ductal dilatation. Pancreatic body is normal. Head and tail are slightly obscured. There are multiple shadowing stones within the gallbladder. Intraluminal echogenic foci within the gallbladder are noted. There is also echogenic material within the gallbladder fundus with dirty shadowing, likely within the wall. The patient was tender over the gallbladder during this exam. No gallbladder wall thickening is present. There is no pericholecystic fluid. There is no biliary ductal dilatation. No right hydronephrosis. IMPRESSION: 1. Cholelithiasis with gas within the gallbladder lumen and probable gas within the wall of the gallbladder fundus. Positive sonographic Guidry sign. The findings are suspicious for emphysematous cholecystitis. 2. No biliary ductal dilatation. ACT 112: Negative or not required by law. Electronically signed by: Abiodun Antunez M.D. 03/31/2023 7:24 PM ECG Additional Comments: ECG. Normal sinus rhythm rate of 75. No significant change was found.
[2023-03-31] MEDS ORDERED: diphenhydrAMINE Capsule 25 MG CAP PO PRN (21:35)
[2023-03-31] MEDS ORDERED: MoRPHine SULFATE 2 MG/ML CARP IV PRN (21:35)
[2023-03-31] MEDS: LACTATED RINGER'S 1,000 ML IV SCH (21:57)
[2023-03-31] MEDS ORDERED: PIPER/TAZO 4.5g in D5W MINI-B 100 ML IV ONE (22:00)
[2023-03-31] MEDS: PROMETHAZINE HCL 12.5 MG in SODIUM CHLORIDE 0.9% 50 ML IV PRN (22:08)
[2023-04-01] MEDS: MoRPHine SULFATE 4 MG/ML 1 ML CARP\\VIAL IV PRN ×2 (00:27→04:44)
[2023-04-01] MEDS: PIPERACILLIN/TAZOBACTAM 4.5 GM in DEXTROSE 5% MINI-B 100 ML IV SCH ×3 (02:23→20:26)
[2023-04-01] MEDS ORDERED: LORazepam 0.5 MG TAB PO STA ×2 (02:35→22:36)
[2023-04-01] MEDS ORDERED: LORazepam 2 MG/1 ML VIAL IV STA (03:20)
[2023-04-01] MEDS ORDERED: diphenhydrAMINE 50 MG/ML VIAL IV PRN (04:21)
[2023-04-01] MEDS ORDERED: diphenhydrAMINE 50 MG/ML VIAL ONE (04:42)
[2023-04-01] MEDS ORDERED: KETOROLAC 30 MG/ML VIAL IV PRN ×2 (05:47→09:51)
[2023-04-01] MEDS ORDERED: diphenhydrAMINE 50 MG/ML VIAL IV STA (05:49)
[2023-04-01] MEDS ORDERED: BUPIVACAINE/EPINEPHRINE 0.25% 1:200,000 30 ML VIAL ONE (07:04)
[2023-04-01] MEDS: LACTATED RINGER'S 1,000 ML IV SCH ×2 (07:27→18:07)
--- NOTE | 2023-04-01 07:56 | Anesthesiology Consultation ---
Date of Service April 01, 2023 Assessment & Plan (1) Encounter for pre-operative examination: Chart Review Chart Review: Acceptable Risk for Surgery History Surgery Operation Date: 04/01/23 10:30 Proposed Procedures p Laparoscopic Cholecystectomy - Reji Dia MD Height/Weight Height: 5 ft 3 in Weight: 86.3 kg Allergies Allergy/AdvReac Type Severity Reaction Status Date / Time hydromorphone [From Dilaudid] Allergy Unknown Unknown Verified 03/10/22 10:07 meperidine AdvReac Severe Seizure Verified 03/10/22 10:07 (as child) morphine AdvReac Intermediate Irritable Verified 04/01/23 07:11 Medications Home Medications Medication Instructions Recorded Confirmed Last Taken conj estrogen-medroxyprogesterone 1 tab PO HS 12/10/20 03/10/22 08/14/21 0.45 mg-1.5 mg tablet (Prempro) lidocaine 5 % topical patch 1 patch topical DAILY PRN Pain 12/10/20 03/10/22 02/22/22 10:00 trazodone 100 mg tablet 200 mg PO HS 12/10/20 03/10/22 02/28/22 22:00 diclofenac sodium 75 mg 75 mg PO BID PRN Pain, Severe 08/16/21 03/10/22 Unknown tablet,delayed release phentermine 37.5 mg tablet 37.5 mg PO PM 08/16/21 03/10/22 02/27/22 13:00 metoprolol succinate 25 mg 25 mg PO DAILY PRN PVC'S 02/08/22 03/10/22 01/25/22 10:00 tablet,extended release 24 hr naltrexone 50 mg tablet 12.5 mg PO DAILY 02/08/22 03/10/22 Unknown omeprazole 20 mg tablet,delayed 20 mg PO DAILY PRN Heartburn 02/08/22 03/10/22 Unknown release spironolactone 100 mg tablet 100 mg PO QAM 02/08/22 03/10/22 02/22/22 22:00 topiramate 50 mg tablet 50 mg PO PM 02/08/22 03/10/22 02/28/22 13:00 fluconazole 200 mg tablet 200 mg PO QAM #2 tabs 02/13/22 03/10/22 02/28/22 10:00 oxybutynin chloride 5 mg 5 mg PO QAM #10 tabs 02/13/22 03/10/22 02/27/22 10:00 tablet,extended release 24 hr oxycodone 5 mg tablet 5 mg PO Q8H PRN pain #8 tabs 02/13/22 03/10/22 02/25/22 10:00 phenazopyridine 100 mg tablet 100 mg PO TID PRN pain #30 tabs 02/13/22 03/10/22 02/26/22 22:00 tamsulosin 0.4 mg capsule 0.4 mg PO QAM #30 caps 02/13/22 03/10/22 02/28/22 13:00 amoxicillin 875 mg-potassium 1 tab PO BID #14 tabs 02/20/22 03/10/22 02/28/22 23:00 clavulanate 125 mg tablet sulfamethoxazole 800 1 tab PO BID #14 tabs 03/10/22 Unknown mg-trimethoprim 160 mg tablet (Bactrim DS) Active Medications Generic Name Dose Route Start Last Admin Trade Name Freq PRN Reason Stop Dose Admin Promethazine HCl 12.5 mg/ 50.5 mls @ 204 mls/hr 03/31/23 21:35 03/31/23 22:45 Sodium Chloride IV 04/30/23 21:34 Infused Q6H PRN Infusion Nausea And Vomiting Lactated Ringer's 1,000 mls @ 100 mls/hr 03/31/23 21:35 04/01/23 07:27 Lr IV 04/30/23 21:34 100 mls/hr .Q10H TANIA Administration Piperacillin Sod/Tazobactam 100 mls @ 25 mls/hr 04/01/23 03:00 04/01/23 05:40 Sod 4.5 gm/ Dextrose IV 04/11/23 02:59 Infused Q8H TANIA Infusion Protocol Past Medical History Medical History Difficult intravenous access Very poor access per pt (OR made aware) Diverticular disease GERD (gastroesophageal reflux disease) Kidney stones Low blood pressure Chronic, baseline 80s/60s per PAT RN phone interview BP 110/66 per recent PCP office visit 02/16/22 Multiple hereditary exostoses Obesity Topamax for weight loss PVC's (premature ventricular contractions) Reason for metoprolol Follows with Dr. Aaron at [facility] Sleep apnea No CPAP (d/t recall) UTI (urinary tract infection) Past Family History Family History Other No significant family history Past Surgical History Surgical History History of cardiac radiofrequency ablation Approximately 2 years ago ([facility]) r/t PVCs History of section x3 History of colonoscopy History of cystoscopy Cystoscopy, Left stent insertion (02/08/22): MAC at [facility]. No issues noted per post-op anesthesia progress note. History of esophagogastroduodenoscopy (EGD) History of tooth extraction Hx of joint surgery x several related to MHE, last surgery over 27 yrs ago, has involved fingers, humerus, wrists, ribs, knees, ankles, heels Social History Smoking Status: Never smoker Do You Dip or Chew Tobacco: No Hx Alcohol Use: Yes alcohol intake frequency: holidays/special occasions only Hx Substance Use: No substance use type: does not use Physical Exam Vital Signs Last Vital Signs Temp 37.3 C 04/01/23 07:17 Pulse 73 04/01/23 07:17 Resp 19 04/01/23 07:28 BP 92/61 L 04/01/23 07:17 Pulse Ox 99 04/01/23 07:17 O2 Del Method Room Air 04/01/23 07:17 Testing Laboratory Results 03/31/23 16:15 03/31/23 16:15 Urine Color Yellow 03/31/23 18:43 Urine Appearance Clear (Clear) 03/31/23 18:43 Urine pH 6.5 (4.5-7.5) 03/31/23 18:43 Ur Specific [place] > 1.045 (1.000-1.030) H 03/31/23 18:43 Urine Protein Negative (Negative) 03/31/23 18:43 Urine Glucose (UA) Negative (Negative) 03/31/23 18:43 Urine Ketones Negative (Negative) 03/31/23 18:43 Urine Nitrite Negative (Negative) 03/31/23 18:43 Ur Leukocyte Esterase Trace (Negative) H 03/31/23 18:43 Urine WBC (Auto) 5-10 /hpf (0-5) H 03/31/23 18:43 Urine RBC (Auto) 0-4 /hpf (0-4) 03/31/23 18:43 U Hyaline Cast (Auto) 1-5 /lpf (0-5) 03/31/23 18:43 U Epithel Cells (Auto) >30 /lpf (0-5) H 03/31/23 18:43 Urine Bacteria (Auto) Negative (Negative) 03/31/23 18:43 Electrocardiogram Date: 03/31/23 Findings: + NSR @ (75) Echocardiogram Date: 12/23/18 LV Function: normal Valvular Disease: + no significant valvular disease and + MR (mild)
[2023-04-01] MEDS ORDERED: LACTATED RINGER'S 1,000 ML IV ONE (08:35)
--- NOTE | 2023-04-01 09:21 | History & Physical Bridge Note ---
Date of Service April 01, 2023 History & Physical Bridge Note I have examined the patient, reviewed the History & Physical and in the interval since the performance of the History & Physical I have noted the following changes of clinical significance: no changes noted
[2023-04-01] MEDS ORDERED: fentaNYL citrate PF 100 MCG/2 ML VIAL ONE ×3 (09:28→12:08)
[2023-04-01] MEDS ORDERED: MIDAZOLAM HCL 1 MG/ML 2ML VIAL ONE (09:28)
[2023-04-01] MEDS ORDERED: PROPOFOL IV EMULSION 10 MG/ML 20 ML VIAL IV ONE ×2 (09:29→10:10)
--- NOTE | 2023-04-01 09:39 | Electrocardiogram Report ---
Test Reason : Blood Pressure : / mmHG Vent. Rate : 075 BPM Atrial Rate : 075 BPM P-R Int : 150 ms QRS Dur : 076 ms QT Int : 362 ms P-R-T Axes : 046 071 054 degrees QTc Int : 404 ms Normal sinus rhythm Normal ECG When compared with ECG of 17-FEB-2022 13:53, No significant change was found Confirmed by Kamlesh Muniz ([id number]) on 04/01/2023 9:38:32 AM Referred By: REFERRED SELF Confirmed By:Kamlesh Muniz
[2023-04-01] MEDS ORDERED: fentaNYL citrate PF 100 MCG/2 ML VIAL IV PRN (09:51)
[2023-04-01] MEDS ORDERED: PROMETHAZINE HCL 6.25 MG in SODIUM CHLORIDE 0.9% 50 ML IV PRN (09:51)
[2023-04-01] MEDS ORDERED: ATROPINE SULFATE 0.1 MG/ML 10ML SYR IV PRN (09:51)
[2023-04-01] MEDS ORDERED: ROCURONIUM BROMIDE 10 MG/ML 5 ML VIAL IV ONE (10:09)
[2023-04-01] MEDS ORDERED: LIDOCAINE 2% 2 ML VIAL/AMP(20MG/ML) INFIL ONE (10:10)
[2023-04-01] MEDS ORDERED: ONDANSETRON INJ 2 MG/ML 2 ML VIAL ONE ×2 (10:47→11:53)
[2023-04-01] MEDS ORDERED: DEXAMETHASONE SOD INJ 4 MG/ML VIAL ONE (10:47)
[2023-04-01] MEDS ORDERED: NEOSTIGMINE METHYLSULFATE 1 MG/ML 10ML VIAL ONE (10:48)
[2023-04-01] MEDS ORDERED: GLYCOPYRROLATE 0.2 MG/ML VIAL ONE (10:48)
[2023-04-01] MEDS ORDERED: cefOXitin 2,000 MG in DEXTROSE 5% 50 ML IV STA (10:58)
--- NOTE | 2023-04-01 11:25 | Hospitalist Progress Note ---
Date of Service April 01, 2023 Assessment & Plan (1) Acute cholecystitis: (2) Acute diverticulitis: (3) Low blood pressure: Plan 52-year-old female with past med significant for PVCs, varicose veins of both lower extremity, hereditary multiple exostosis, myofascial pain syndrome, osteochondroma, obesity presents with abdominal pain and found to cholecystitis and diverticulitis. CT A/P 1. Acute diverticulitis of the distal descending colon. Moderate inflammation. Small amount of fluid. No free air or abscess. 2. Cholelithiasis. In addition, intraluminal gas within the gallbladder and possible gas within the wall of the gallbladder fundus. Trace pneumobilia. Em physematous cholecystitis cannot be excluded however no pericholecystic stranding or gallbladder wall thickening. Therefore, correlation with right upper quadrant pain and right upper quadrant ultrasound is recommended. US Gallbladder 1. Cholelithiasis with gas within the gallbladder lumen and probable gas within the wall of the gallbladder fundus. Positive sonographic Guidry sign. The findings are suspicious for emphysematous cholecystitis. 2. No biliary ductal dilatation. Acute calculous cholecystitis CT as above Continue empiric zosyn, IV fluids, pain control Plan for lap john per primary team today. N.p.o. for the same Further management per primary Acute uncomplicated diverticulitis of distal descending colon Continue empiric antibiotics, n.p.o., IV fluid Needs outpatient colonoscopy in 6 to 8 weeks Hypotension chronic issue. BP in 80s despite maintenance IVF. Will give 1 L fluid bolus. If still low, will consider midodrine with hold parameters which she required during prior admission. DVT prophylaxis and disposition as per surgery Admission and Anticipated Discharge Date Admission Date: March 31, 2023 Subjective Patient was seen and examined at bedside. She feels better from admission, however still feels bloated with some pain. States her BP has always been low and was down to 70s/30s during prior admission for kidney stones. Review of Systems Review of Systems: All systems reviewed & are unremarkable except as noted in HPI & below Physical Exam Physical Exam: General: Lying in bed, not in acute distress, on room air HEENT: EOMI, BRYN, MMM Chest: Clear breath sounds bilaterally, no wheezes or crackles CVS: Regular rate and rhythm, normal heart sounds, no murmur Abdomen: Soft, diffuse tenderness, not distended, normal bowel sounds Neuro: Awake, alert, oriented, conversing well, non focal Extremities: No cyanosis, clubbing or edema Results & Data Results & Data Vital Signs (Past 12 Hours) Vital Signs Temp Pulse Resp BP Pulse Ox O2 Del Method 04/01/23 09:00 76 18 91/66 L 04/01/23 08:24 87/56 L 04/01/23 07:28 19 04/01/23 07:17 37.3 C 73 92/61 L 99 Room Air Laboratory Results Short CBC 03/31/23 Range/Units 16:15 WBC 11.35 H (4.8-10.8) K/ul Hgb 14.4 (12.0-16.0) g/dl Hct 42.0 (37.0-47.0) % Plt Count 277 (130-400) K/uL BMP 03/31/23 16:15 Sodium 138 Potassium 3.7 Chloride 104 Carbon Dioxide 28 BUN 10 Creatinine 0.81 Glucose 74 Calcium 9.0 Liver Function 03/31/23 Range/Units 16:15 Total Bilirubin 0.7 (0.2-1.0) mg/dl AST 12 L (13-39) U/L ALT 11 (7-52) U/L Alkaline Phosphatase 91 (34-104) U/L Albumin 4.1 (3.4-5.0) gm/dl Urine 03/31/23 Range/Units 18:43 Urine Color Yellow Urine Appearance Clear (Clear) Urine pH 6.5 (4.5-7.5) Ur Specific [place] > 1.045 H (1.000-1.030) Urine Protein Negative (Negative) Urine Glucose (UA) Negative (Negative) Medications Administered Current Inpatient Medications Atropine Sulfate (Atropine Sulfate 0.1 Mg/Ml 10ml Syr) 0.5 mg IV Q1M PRN PRN Reason: PACU Use-HR<40 &/or Bradycardi Stop: 04/01/23 17:51 Diphenhydramine HCl (Diphenhydramine Capsule 25 Mg Cap) 25 mg PO Q4H PRN PRN Reason: hives, itching or insomnia Stop: 04/30/23 21:34 Diphenhydramine HCl (Diphenhydramine 50 Mg/Ml Vial) 12.5 mg IV Q6H PRN PRN Reason: Allergic Reaction Stop: 05/01/23 04:20 Fentanyl Citrate (Fentanyl Citrate Pf 100 Mcg/2 Ml Vial) 25 mcg IV Q5M PRN PRN Reason: PACU Use Only-Pain Stop: 04/01/23 17:51 Promethazine HCl 12.5 mg/ (Sodium Chloride) 50.5 mls @ 204 mls/hr IV Q6H PRN PRN Reason: Nausea And Vomiting Stop: 04/30/23 21:34 Last Infusion: 03/31/23 22:45 Dose: Infused Lactated Ringer's (Lr) 1,000 mls @ 100 mls/hr IV .Q10H TANIA Stop: 04/30/23 21:34 Last Infusion: 04/01/23 08:39 Dose: 0 mls/hr Piperacillin Sod/Tazobactam (Sod 4.5 gm/ Dextrose) 100 mls @ 25 mls/hr IV Q8H TANIA; Protocol Stop: 04/11/23 02:59 Last Infusion: 04/01/23 05:40 Dose: Infused Promethazine HCl 6.25 mg/ (Sodium Chloride) 50.25 mls @ 204 mls/hr IV ONCE PRN PRN Reason: PACU Use Only-Nausea/Vomiting Stop: 04/01/23 17:52 Cefoxitin Sodium 2,000 mg/ (Dextrose) 60 mls @ 100 mls/hr IV NOW STA; Protocol Stop: 04/01/23 11:33 Last Admin: 04/01/23 10:39 Dose: 100 mls/hr Ketorolac Tromethamine (Ketorolac 30 Mg/Ml Vial) 30 mg IV Q6H PRN PRN Reason: Pain Stop: 04/06/23 05:46 Ketorolac Tromethamine (Ketorolac 30 Mg/Ml Vial) 30 mg IV ONCE PRN PRN Reason: PACU Use Only-Pain Stop: 04/01/23 17:52 Midodrine (Midodrine Hcl 2.5 Mg Tab) 5 mg PO TID@0800,1200,1700 TANIA Stop: 05/01/23 09:54 Ondansetron HCl (Ondansetron Inj 2 Mg/Ml 2 Ml Vial) 4 mg IV Q4H PRN PRN Reason: Nausea And Vomiting Stop: 04/30/23 21:34
--- NOTE | 2023-04-01 11:29 | Operative Report ---
Post Operative Report Pre & Post Diagnosis Operation Date: 04/01/23 10:30 Pre-Op Diagnosis: Acute cholecystitis, Diverticulitis. Post-Op Diagnosis: Acute cholecystitis, Diverticulitis. I identified the patient and participated in the time-out.: Yes Procedure Operation Date: 04/01/23 10:30 Actual Procedures p Laparoscopic Cholecystectomy - Reji Dia MD Surgeon Reji Dia MD Brand Strategy Manager None Estimated Blood Loss 5 Findings Consistent with Post-Op Diagnosis Acute cholecystitis Specimens Gallbladder Drains None Anesthesia Type General Complications none Description of Procedure The patient was taken to the operating room, and placed supine on the operating table. A timeout was performed, perioperative antibiotics were administered, SCD boots were placed. After adequate anesthesia and analgesia was obtained, the abdomen was prepped and draped in the normal sterile fashion. Local anesthetic was injected into and around the proposed incision sites. An incision was made with a 15 blade scalpel in the supraumbilical region and carried down to the level of the fascia. The fascia was grasped with a trach hook, and a varies needle was used to enter the abdominal cavity. The abdomen was insufflated to a pressure of 15 mmHg, and a 11 mm trocar was placed in this location. A 10 mm, 30 degree laparoscope was placed into the abdominal cavity, and the abdomen was surveyed. The gallbladder appeared quite distended with omentum adhesed to the gallbladder. Two 5 mm trochars were placed along the right costal margin, and one 5 mm trocar was placed in the subxiphoid region under direct visualization. The gallbladder was drained with an 18-gauge aspiration needle. The gallbladder was grasped and retracted cephalad and laterally, exposing the triangle of Calot. Adhesions of the omentum to the gallbladder were taken down with combination of blunt dissection and hook cautery. Dissection began in the triangle with a combination of blunt dissection with the [place] dissector, and judicious use of the hook cautery. The cystic duct and cystic artery were dissected free circumferentially, and a critical view of safety was obtained. The cystic duct and cystic artery were clipped and transected, and the gallbladder was removed from the gallbladder fossa with the hook cautery. The camera was switched to a 5 mm, the gallbladder was placed in an Endo Catch bag, and removed via the supraumbilical port site. The camera was switched back to the 10 mm camera, and the abdomen was surveyed again. Hemostasis was checked and attended, and was excellent. The abdomen was copiously irrigated and suctioned free. Again hemostasis was checked and was excellent. All trochars were removed under direct visualization. The abdomen was desufflated. The fascia in the 11 mm port site was closed with a 0 Vicryl suture. The skin was closed with a running 4-0 Monocryl subcuticular stitch. Dermabond was applied. The patient tolerated the procedure without complication, and was transferred in stable condition to the PACU. All instrument, needle, and sponge counts were correct at the end of the case. I attest to the content of the Intraoperative Record and any orders documented therein. Any exceptions are noted below.
[2023-04-01] MEDS: ONDANSETRON INJ 2 MG/ML 2 ML VIAL IV PRN (11:56)
[2023-04-01] MEDS ORDERED: KETOROLAC 30 MG/ML VIAL ONE (12:03)
--- NOTE | 2023-04-01 12:27 | Anesthesiology Progress Note ---
Date of Service April 01, 2023 Anesthesia Post Procedure Vital Signs Vital Signs: Temp Pulse Pulse Pulse Resp BP BP 04/01/23 12:15 61 14 84/53 L 04/01/23 12:05 58 L 18 97/65 L 04/01/23 11:55 61 16 92/60 L 04/01/23 11:47 36.6 C 62 17 96/63 L 04/01/23 09:00 76 18 91/66 L 04/01/23 08:24 87/56 L 04/01/23 07:28 19 04/01/23 07:17 37.3 C 73 92/61 L 03/31/23 21:35 03/31/23 21:30 36.7 C 72 16 109/73 03/31/23 21:00 71 18 104/68 03/31/23 20:31 64 14 103/71 03/31/23 19:57 79 03/31/23 19:46 70 18 98/67 L 03/31/23 17:00 73 20 97/63 L 03/31/23 15:57 79 03/31/23 15:36 103 H 12 96/64 L 03/31/23 14:38 36.8 C 108 H 18 92/72 L Pulse Ox Pulse Ox O2 Del Method O2 Del Method O2 Flow Rate 04/01/23 12:15 97 Room Air 04/01/23 12:05 100 Room Air 04/01/23 11:55 100 Oxymask 4 04/01/23 11:47 100 Oxymask 4 04/01/23 09:00 04/01/23 08:24 04/01/23 07:28 04/01/23 07:17 99 Room Air 03/31/23 21:35 98 Room Air 03/31/23 21:30 98 Room Air 03/31/23 21:00 99 Room Air 03/31/23 20:31 100 Room Air 03/31/23 19:57 03/31/23 19:46 98 Room Air 03/31/23 17:00 98 Room Air 03/31/23 15:57 03/31/23 15:36 97 Room Air 03/31/23 14:38 95 Room Air Pain Intensity Abdomen: Pain Intensity: 5 Transfer of Care Handoff Completed per policy Notes Mental Status: alert / awake / arousable Patient Amnestic to Procedure: Yes Nausea / Vomiting: adequately controlled Pain: adequately controlled Airway Patency, RR, SpO2: stable & adequate BP & HR: stable & adequate Hydration State: stable & adequate Anesthetic Complications: no major complications apparent
[2023-04-01] MEDS: MIDODRINE HCL 2.5 MG TAB PO SCH ×3 (13:34→18:08)
[2023-04-01] MEDS: PROMETHAZINE HCL 12.5 MG in SODIUM CHLORIDE 0.9% 50 ML IV PRN (14:03)
[2023-04-01] MEDS: oxyCODONE/ACETAMINOPHEN 5mg/325mg TAB PO PRN (15:07)
[2023-04-01] MEDS: MoRPHine SULFATE 2 MG/ML CARP IV PRN ×2 (17:17→20:25)
[2023-04-01] MEDS ORDERED: Nursing to Pharmacy Communication SCH (18:00)
[2023-04-01] MEDS ORDERED: SODIUM CHLORIDE 0.9% 500 ML IV SCH ×2 (22:45→23:45)
[2023-04-01] MEDS ORDERED: LORazepam 2 MG/1 ML VIAL ONE (22:47)
[2023-04-01] MEDS ORDERED: LORazepam 0.5 MG TAB ONE (22:49)
[2023-04-01] MEDS ORDERED: OPTIRAY 320 100ml IV ONE (23:11)
[2023-04-02 00:23] LABS: Basophils # (auto) 0.02 K/uL (0.00-0.20); Basophils % (auto) 0.1 %; Hemoglobin 11.8 g/dl (12.0-16.0); Immature Granulocytes # (auto) 0.07 K/uL (0.01-0.20); Immature Granulocytes % (auto) 0.4 %; Lymphocytes # (auto) 1.01 K/uL (1.20-3.40); Lymphocytes % (auto) 6.5 %; Mean Corpuscular Hemoglobin 30.3 pg (25.0-34.0); Mean Corpuscular Hgb Conc 32.8 g/dL (32.0-36.0); Mean Corpuscular Volume 92.5 fL (80.0-100.0); Mean Platelet Volume 10.2 fL (9.4-12.4); Monocytes # (auto) 1.02 K/uL (0.11-0.59); Monocytes % (auto) 6.5 %; Neutrophils # (auto) 13.46 K/uL (1.40-6.50); Neutrophils % (auto) 86.5 %; Platelet Count 227 K/uL (130-400); RDW Coefficient of Variation 12.2 % (11.5-14.5); RDW Standard Deviation 41.6 fL (36.4-46.3); Red Blood Count 3.89 M/uL (4.20-5.40); White Blood Count 15.58 K/ul (4.8-10.8)
--- NOTE | 2023-04-02 00:53 | CT Scan Report ---
Exam(s): CT ABDOMEN + PELVIS With Contrast IV Amt: 93 ML OPTIRAY 320 EXAM: CT Abdomen and Pelvis With Intravenous Contrast CLINICAL HISTORY: Reason for exam: severe abd pain. s/p lap john. TECHNIQUE: Axial computed tomography images of the abdomen and pelvis with intravenous contrast. CTDI is 27.57 mGy and DLP is 1469.19 mGy-cm. Automated exposure control was utilized for the study. A dose lowering technique was utilized adhering to the principles of ALARA. CONTRAST: Patient received 93 ML OPTIRAY 320 of IV contrast COMPARISON: No relevant prior studies available. FINDINGS: Lung bases: Airspace consolidation at the lung bases, correlate for mild aspiration. ABDOMEN: Liver: Unremarkable. No mass. Gallbladder and bile ducts: Mild induration in the gallbladder fossa, which may be from recent acute cholecystitis. If there is concern for bile leak, HIDA scan recommended. No ductal dilation. Pancreas: Unremarkable. No mass. No ductal dilation. Spleen: Unremarkable. No splenomegaly. Adrenals: Unremarkable. No mass. Kidneys and ureters: Unremarkable. No solid mass. No hydronephrosis. Stomach and bowel: Acute sigmoid diverticulitis, consisting of mild peridiverticular inflammation. No perforation or abscess. No obstruction. PELVIS: Appendix: No findings to suggest acute appendicitis. Bladder: Unremarkable. No mass. Reproductive: Unremarkable as visualized. ABDOMEN and PELVIS: Intraperitoneal space: Small foci of free air anterior to the liver likely from recent cholecystectomy. Bones/joints: No acute fracture. No dislocation. Soft tissues: Unremarkable. Vasculature: Unremarkable. No abdominal aortic aneurysm. Lymph nodes: Unremarkable. No enlarged lymph nodes. IMPRESSION: 1. Mild induration in the gallbladder fossa, which may be from recent acute cholecystitis. If there is concern for bile leak, HIDA scan recommended. 2. Airspace consolidation at the lung bases, correlate for mild aspiration. 3. Small foci of free air anterior to the liver likely from recent cholecystectomy. 4. Acute sigmoid diverticulitis, consisting of mild peridiverticular inflammation. No perforation or abscess. Electronically signed by: Howie Green MD 04/02/23 00:51 AM
[2023-04-02 00:57] LABS: Albumin Globulin Ratio 1.3 (0.9-2); Albumin Level 3.2 gm/dl (3.4-5.0); BUN Creatinine Ratio 8.8 (10-20); Bilirubin,Total 0.4 mg/dl (0.2-1.0); Calcium 7.8 mg/dl (8.6-10.3); Creatinine Clr Calc Pharmacy 84.7 ml/min; Est GFR (African American) 97.6 ml/min; Est GFR (Non-African American) 84.2 ml/min; Globulin 2.5 gm/dl (2.5-4.0); Magnesium 1.7 mg/dl (1.7-2.4); Potassium 4.1 mmol/L (3.5-5.1); Total Protein 5.7 gm/dl (6.0-8.3)
[2023-04-02 01:51] LABS: Hemoglobin 11.7 g/dl (12.0-16.0); Mean Corpuscular Hemoglobin 30.7 pg (25.0-34.0); Mean Corpuscular Hgb Conc 33.4 g/dL (32.0-36.0); Mean Corpuscular Volume 91.9 fL (80.0-100.0); Mean Platelet Volume 10.8 fL (9.4-12.4); Platelet Count 217 K/uL (130-400); RDW Coefficient of Variation 12.3 % (11.5-14.5); RDW Standard Deviation 41.4 fL (36.4-46.3); Red Blood Count 3.81 M/uL (4.20-5.40); White Blood Count 14.86 K/ul (4.8-10.8)
[2023-04-02] MEDS: MoRPHine SULFATE 2 MG/ML CARP IV PRN ×3 (01:56→23:31)
[2023-04-02 01:58] LABS: Albumin Globulin Ratio 1.2 (0.9-2); Albumin Level 3.2 gm/dl (3.4-5.0); BUN Creatinine Ratio 9.2 (10-20); Bilirubin,Total 0.3 mg/dl (0.2-1.0); Calcium 7.7 mg/dl (8.6-10.3); Creatinine Clr Calc Pharmacy 89.1 ml/min; Est GFR (African American) 103.8 ml/min; Est GFR (Non-African American) 89.6 ml/min; Globulin 2.6 gm/dl (2.5-4.0); Magnesium 1.6 mg/dl (1.7-2.4); Phosphorus 1.8 mg/dl (2.5-4.9); Potassium 4.1 mmol/L (3.5-5.1); Total Protein 5.8 gm/dl (6.0-8.3)
[2023-04-02] MEDS ORDERED: SODIUM PHOSPHATE 3 MMOL/1 ML INFUSION IV STA (02:29)
[2023-04-02] MEDS ORDERED: STAT IV STA (02:30)
[2023-04-02] MEDS ORDERED: CALCIUM GLUCONATE 10% 1,000 MG in SODIUM CHLOR 0.9% MINI-B 50 ML IV ONE (02:30)
[2023-04-02] MEDS ORDERED: SODIUM PHOSPHATE 24 MMOL in DEXTROSE 5% 500 ML IV ONE (03:00)
[2023-04-02] MEDS: MAGNESIUM SULFATE / D5W 1 GM/100 ML BAG IV SCH ×2 (03:21→05:43)
[2023-04-02] MEDS: oxyCODONE/ACETAMINOPHEN 5mg/325mg TAB PO PRN ×2 (03:31→07:39)
[2023-04-02] MEDS ORDERED: SODIUM CHLORIDE 0.9% 500 ML IV SCH (04:15)
[2023-04-02] MEDS: PIPERACILLIN/TAZOBACTAM 4.5 GM in DEXTROSE 5% MINI-B 100 ML IV SCH ×3 (05:47→21:45)
--- NOTE | 2023-04-02 08:19 | Hospitalist Progress Note ---
Date of Service April 02, 2023 Assessment & Plan (1) Acute cholecystitis: (2) Acute diverticulitis: (3) Low blood pressure: Plan 52-year-old female with past med significant for PVCs, varicose veins of both lower extremities, hereditary multiple exostosis, myofascial pain syndrome, osteochondroma, obesity admitted with cholecystitis and diverticulitis. Acute emphysematous cholecystitis Diverticulitis Pt presented with abdominal pain WBC was elevated. CT abd/pelvis noting acute diverticulitis of distal colon, could not exclude emphysematous cholecystitis. Gallbladder US confirming suspicion of emphysematous cholecystitis s/p lap john on 04/01 by General Surgery, appreciate recs. -encourage ambulation, incentive spirometry -Lovenox and SCDs for DVT prophylaxis -Advance diet as tolerated Continue empiric zosyn, IV fluids, pain control Needs outpatient colonoscopy in 6 to 8 weeks Hypotension chronic issue. Received 1L IV bolus today Midodrine dose increased to 10mg TID, wean as tolerated. Once tolerating PO well, continue other home meds. CODE STATUS: Full code Diet: currently clear liquids DVT prophylaxis: On lovenox and SCDs Dispo: Home once medically stable Admission and Anticipated Discharge Date Admission Date: March 31, 2023 Subjective This AM noting increased abdominal pain, diffuse. States that the medications help for a time before wearing off. States she was trying to sleep. Review of Systems Review of Systems: All systems reviewed & are unremarkable except as noted in Subjective Physical Exam Physical Exam: General: Alert, oriented. No acute distress Skin: No noted rashes or bruises Psych: Appropriate mood and affect Neuro: No gross deficits HEENT: NC/AT Chest: Nontender to palpation. CV: RRR, Normal s1, s2. Resp: Breath sounds clear bilaterally, no increased effort of breathing. Abdomen:.Soft, diffusely tender even with light touch, nondistended. Extremities: No edema in lower extremities bilaterally. Results & Data Results & Data Vital Signs (Past 12 Hours) Vital Signs Temp Pulse Resp BP Pulse Ox Pulse Ox O2 Del Method 04/02/23 07:26 36.6 C 58 L 18 88/59 L 95 Room Air 04/02/23 04:56 93/60 L 04/02/23 04:00 81/56 L 04/02/23 03:00 36.7 C 71 18 87/56 L 98 Room Air 04/01/23 21:35 97 04/01/23 23:27 36.8 C 80 20 93/61 L 96 Room Air O2 Del Method 04/02/23 07:26 04/02/23 04:56 04/02/23 04:00 04/02/23 03:00 04/01/23 21:35 Room Air 04/01/23 23:27
[2023-04-02] MEDS: LACTATED RINGER'S 1,000 ML IV SCH ×3 (08:40→23:34)
[2023-04-02] MEDS: MIDODRINE HCL 2.5 MG TAB PO SCH ×2 (08:41→12:39)
[2023-04-02 08:44] LABS: Basophils # (auto) 0.02 K/uL (0.00-0.20); Basophils % (auto) 0.1 %; Eosinophils # (auto) 0.05 K/uL (0.00-0.50); Eosinophils % (auto) 0.3 %; Hematocrit (blood only) 34.6 % (37.0-47.0); Hemoglobin 11.3 g/dl (12.0-16.0); Immature Granulocytes # (auto) 0.05 K/uL (0.01-0.20); Immature Granulocytes % (auto) 0.3 %; Lymphocytes # (auto) 1.84 K/uL (1.20-3.40); Lymphocytes % (auto) 12.4 %; Mean Corpuscular Hemoglobin 30.5 pg (25.0-34.0); Mean Corpuscular Hgb Conc 32.7 g/dL (32.0-36.0); Mean Corpuscular Volume 93.5 fL (80.0-100.0); Mean Platelet Volume 10.9 fL (9.4-12.4); Monocytes # (auto) 0.88 K/uL (0.11-0.59); Monocytes % (auto) 5.9 %; Platelet Count 195 K/uL (130-400); RDW Coefficient of Variation 12.3 % (11.5-14.5); RDW Standard Deviation 42.4 fL (36.4-46.3); White Blood Count 14.84 K/ul (4.8-10.8)
[2023-04-02 08:58] LABS: Albumin Globulin Ratio 1.3 (0.9-2); BUN Creatinine Ratio 8.5 (10-20); Bilirubin,Total 0.3 mg/dl (0.2-1.0); Calcium 7.7 mg/dl (8.6-10.3); Creatinine Clr Calc Pharmacy 95.4 ml/min; Est GFR (African American) 112.7 ml/min; Est GFR (Non-African American) 97.2 ml/min; Globulin 2.4 gm/dl (2.5-4.0); Magnesium 2.3 mg/dl (1.7-2.4); Phosphorus 4.1 mg/dl (2.5-4.9); Potassium 3.9 mmol/L (3.5-5.1); Total Protein 5.4 gm/dl (6.0-8.3)
--- NOTE | 2023-04-02 10:02 | Surgery Progress Note ---
Date of Service April 02, 2023 Assessment & Plan (1) Acute diverticulitis: (2) Acute emphysematous cholecystitis: Plan POD #1 s/p laparoscopic cholecystectomy Pain control with IV and p.o. pain meds Encourage out of bed, ambulation, incentive spirometry Lovenox and SCDs for DVT prophylaxis Advance diet as tolerated Continue IV antibiotics for diverticulitis Admission and Anticipated Discharge Date Admission Date: March 31, 2023 Subjective Doing okay this morning. Still complains of significant pain along her left side. No nausea or vomiting. Tolerating clears. No fevers overnight. Physical Exam Physical Exam: AFVSS NAD, A&O x3 Abdomen soft, TTP diffusely, greatest along left side Incisions C/D/I, Dermabond in place Results & Data Vital Signs (Past 12 Hours) Vital Signs Temp Pulse Resp BP Pulse Ox O2 Del Method 04/02/23 07:26 36.6 C 58 L 18 88/59 L 95 Room Air 04/02/23 04:56 93/60 L 04/02/23 04:00 81/56 L 04/02/23 03:00 36.7 C 71 18 87/56 L 98 Room Air 04/01/23 23:27 36.8 C 80 20 93/61 L 96 Room Air Laboratory Results 04/02/23 04/02/23 04/02/23 Range/Units 08:04 08:04 03:25 WBC 14.84 H (4.8-10.8) K/ul RBC 3.70 L (4.20-5.40) M/uL Hgb 11.3 L (12.0-16.0) g/dl Hct 34.6 L (37.0-47.0) % MCV 93.5 (80.0-100.0) fL MCH 30.5 (25.0-34.0) pg MCHC 32.7 (32.0-36.0) g/dL RDW Std Deviation 42.4 (36.4-46.3) fL RDW Coeff of Jovan 12.3 (11.5-14.5) % Plt Count 195 (130-400) K/uL MPV 10.9 (9.4-12.4) fL Immature Gran % (Auto) 0.3 % Neut % (Auto) 81.0 % Lymph % (Auto) 12.4 % [place] % (Auto) 5.9 % Eos % (Auto) 0.3 % Baso % (Auto) 0.1 % Neut # (Auto) 12.00 H (1.40-6.50) K/uL Lymph # (Auto) 1.84 (1.20-3.40) K/uL [place] # (Auto) 0.88 H (0.11-0.59) K/uL Eos # (Auto) 0.05 (0.00-0.50) K/uL Baso # (Auto) 0.02 (0.00-0.20) K/uL Immature Gran # (Auto) 0.05 (0.01-0.20) K/uL Sodium 140 (136-145) mmol/L Potassium 3.9 (3.5-5.1) mmol/L Chloride 109 H (98-107) mmol/L Carbon Dioxide 26 (21-32) mmol/L Anion Gap 5 (3-11) BUN 6 (6-23) mg/dl Creatinine 0.71 (0.6-1.2) mg/dl Est Cr Clr Drug Dosing 95.4 ml/min Est GFR ( Amer) 112.7 ml/min Est GFR (Non-Af Amer) 97.2 ml/min BUN/Creatinine Ratio 8.5 L (10-20) Glucose 134 H (70-99(Fasting)) mg/dl Lactate 2.5 H* (0.4-2.0) mmol/L Calcium 7.7 L (8.6-10.3) mg/dl Phosphorus 4.1 D (2.5-4.9) mg/dl Magnesium 2.3 (1.7-2.4) mg/dl Total Bilirubin 0.3 (0.2-1.0) mg/dl AST 21 (13-39) U/L ALT 21 (7-52) U/L Alkaline Phosphatase 50 (34-104) U/L Total Protein 5.4 L (6.0-8.3) gm/dl Albumin 3.0 L (3.4-5.0) gm/dl Globulin 2.4 L (2.5-4.0) gm/dl Albumin/Globulin Ratio 1.3 (0.9-2) 04/02/23 04/02/23 04/02/23 Range/Units 01:21 01:21 01:21 WBC 14.86 H (4.8-10.8) K/ul RBC 3.81 L (4.20-5.40) M/uL Hgb 11.7 L (12.0-16.0) g/dl Hct 35.0 L (37.0-47.0) % MCV 91.9 (80.0-100.0) fL MCH 30.7 (25.0-34.0) pg MCHC 33.4 (32.0-36.0) g/dL RDW Std Deviation 41.4 (36.4-46.3) fL RDW Coeff of Jovan 12.3 (11.5-14.5) % Plt Count 217 (130-400) K/uL MPV 10.8 (9.4-12.4) fL Immature Gran % (Auto) % Neut % (Auto) % Lymph % (Auto) % [place] % (Auto) % Eos % (Auto) % Baso % (Auto) % Neut # (Auto) (1.40-6.50) K/uL Lymph # (Auto) (1.20-3.40) K/uL [place] # (Auto) (0.11-0.59) K/uL Eos # (Auto) (0.00-0.50) K/uL Baso # (Auto) (0.00-0.20) K/uL Immature Gran # (Auto) (0.01-0.20) K/uL Sodium 140 (136-145) mmol/L Potassium 4.1 (3.5-5.1) mmol/L Chloride 111 H (98-107) mmol/L Carbon Dioxide 24 (21-32) mmol/L Anion Gap 5 (3-11) BUN 7 (6-23) mg/dl Creatinine 0.76 (0.6-1.2) mg/dl Est Cr Clr Drug Dosing 89.1 ml/min Est GFR ( Amer) 103.8 ml/min Est GFR (Non-Af Amer) 89.6 ml/min BUN/Creatinine Ratio 9.2 L (10-20) Glucose 128 H (70-99(Fasting)) mg/dl Lactate 2.6 H* (0.4-2.0) mmol/L Calcium 7.7 L (8.6-10.3) mg/dl Phosphorus 1.8 L (2.5-4.9) mg/dl Magnesium 1.6 L (1.7-2.4) mg/dl Total Bilirubin 0.3 (0.2-1.0) mg/dl AST 26 (13-39) U/L ALT 24 (7-52) U/L Alkaline Phosphatase 54 (34-104) U/L Total Protein 5.8 L (6.0-8.3) gm/dl Albumin 3.2 L (3.4-5.0) gm/dl Globulin 2.6 (2.5-4.0) gm/dl Albumin/Globulin Ratio 1.2 (0.9-2) 04/02/23 04/02/23 04/02/23 Range/Units 00:42 00:10 00:10 WBC 15.58 H (4.8-10.8) K/ul RBC 3.89 L (4.20-5.40) M/uL Hgb 11.8 L (12.0-16.0) g/dl Hct 36.0 L (37.0-47.0) % MCV 92.5 (80.0-100.0) fL MCH 30.3 (25.0-34.0) pg MCHC 32.8 (32.0-36.0) g/dL RDW Std Deviation 41.6 (36.4-46.3) fL RDW Coeff of Jovan 12.2 (11.5-14.5) % Plt Count 227 (130-400) K/uL MPV 10.2 (9.4-12.4) fL Immature Gran % (Auto) 0.4 % Neut % (Auto) 86.5 % Lymph % (Auto) 6.5 % [place] % (Auto) 6.5 % Eos % (Auto) 0.0 % Baso % (Auto) 0.1 % Neut # (Auto) 13.46 H (1.40-6.50) K/uL Lymph # (Auto) 1.01 L (1.20-3.40) K/uL [place] # (Auto) 1.02 H (0.11-0.59) K/uL Eos # (Auto) 0.00 (0.00-0.50) K/uL Baso # (Auto) 0.02 (0.00-0.20) K/uL Immature Gran # (Auto) 0.07 (0.01-0.20) K/uL Sodium 139 (136-145) mmol/L Potassium 4.1 (3.5-5.1) mmol/L Chloride 109 H (98-107) mmol/L Carbon Dioxide 24 (21-32) mmol/L Anion Gap 6 (3-11) BUN 7 (6-23) mg/dl Creatinine 0.80 (0.6-1.2) mg/dl Est Cr Clr Drug Dosing 84.7 ml/min Est GFR ( Amer) 97.6 ml/min Est GFR (Non-Af Amer) 84.2 ml/min BUN/Creatinine Ratio 8.8 L (10-20) Glucose 129 H (70-99(Fasting)) mg/dl Lactate Cancelled (0.4-2.0) mmol/L Calcium 7.8 L (8.6-10.3) mg/dl Phosphorus (2.5-4.9) mg/dl Magnesium 1.7 (1.7-2.4) mg/dl Total Bilirubin 0.4 (0.2-1.0) mg/dl AST 28 (13-39) U/L ALT 24 (7-52) U/L Alkaline Phosphatase 55 (34-104) U/L Total Protein 5.7 L D (6.0-8.3) gm/dl Albumin 3.2 L (3.4-5.0) gm/dl Globulin 2.5 (2.5-4.0) gm/dl Albumin/Globulin Ratio 1.3 (0.9-2) 04/01/23 Range/Units 22:52 WBC (4.8-10.8) K/ul RBC (4.20-5.40) M/uL Hgb (12.0-16.0) g/dl Hct (37.0-47.0) % MCV (80.0-100.0) fL MCH (25.0-34.0) pg MCHC (32.0-36.0) g/dL RDW Std Deviation (36.4-46.3) fL RDW Coeff of Jovan (11.5-14.5) % Plt Count (130-400) K/uL MPV (9.4-12.4) fL Immature Gran % (Auto) % Neut % (Auto) % Lymph % (Auto) % [place] % (Auto) % Eos % (Auto) % Baso % (Auto) % Neut # (Auto) (1.40-6.50) K/uL Lymph # (Auto) (1.20-3.40) K/uL [place] # (Auto) (0.11-0.59) K/uL Eos # (Auto) (0.00-0.50) K/uL Baso # (Auto) (0.00-0.20) K/uL Immature Gran # (Auto) (0.01-0.20) K/uL Sodium (136-145) mmol/L Potassium (3.5-5.1) mmol/L Chloride (98-107) mmol/L Carbon Dioxide (21-32) mmol/L Anion Gap (3-11) BUN (6-23) mg/dl Creatinine (0.6-1.2) mg/dl Est Cr Clr Drug Dosing ml/min Est GFR ( Amer) ml/min Est GFR (Non-Af Amer) ml/min BUN/Creatinine Ratio (10-20) Glucose (70-99(Fasting)) mg/dl Lactate 2.5 H* (0.4-2.0) mmol/L Calcium (8.6-10.3) mg/dl Phosphorus (2.5-4.9) mg/dl Magnesium (1.7-2.4) mg/dl Total Bilirubin (0.2-1.0) mg/dl AST (13-39) U/L ALT (7-52) U/L Alkaline Phosphatase (34-104) U/L Total Protein (6.0-8.3) gm/dl Albumin (3.4-5.0) gm/dl Globulin (2.5-4.0) gm/dl Albumin/Globulin Ratio (0.9-2)
[2023-04-02] MEDS ORDERED: ACETAMINOPHEN 500 MG TAB PO PRN (12:04)
[2023-04-02] MEDS ORDERED: oxyCODONE/ACETAMINOPHEN 5mg/325mg TAB PO PRN (12:05)
[2023-04-02] MEDS: KETOROLAC 30 MG/ML VIAL IV PRN ×2 (12:39→20:00)
[2023-04-02] MEDS ORDERED: SODIUM CHLORIDE 0.9% 1,000 ML IV ONE (16:05)
[2023-04-02] MEDS: ONDANSETRON INJ 2 MG/ML 2 ML VIAL IV PRN ×2 (16:21→22:49)
[2023-04-02] MEDS: MIDODRINE HCL 10 MG TAB PO SCH (16:24)
[2023-04-03] MEDS: KETOROLAC 30 MG/ML VIAL IV PRN (02:15)
[2023-04-03] MEDS: ENOXAPARIN INJ 40 MG/0.4 ML SYR SQ SCH (04:50)
[2023-04-03] MEDS: PIPERACILLIN/TAZOBACTAM 4.5 GM in DEXTROSE 5% MINI-B 100 ML IV SCH ×3 (04:50→21:49)
[2023-04-03 06:07] LABS: Basophils # (auto) 0.01 K/uL (0.00-0.20); Basophils % (auto) 0.1 %; Eosinophils # (auto) 0.28 K/uL (0.00-0.50); Eosinophils % (auto) 3.4 %; Hematocrit (blood only) 33.2 % (37.0-47.0); Hemoglobin 10.8 g/dl (12.0-16.0); Immature Granulocytes # (auto) 0.03 K/uL (0.01-0.20); Immature Granulocytes % (auto) 0.4 %; Lymphocytes # (auto) 2.43 K/uL (1.20-3.40); Lymphocytes % (auto) 29.9 %; Mean Corpuscular Hemoglobin 30.6 pg (25.0-34.0); Mean Corpuscular Hgb Conc 32.5 g/dL (32.0-36.0); Mean Corpuscular Volume 94.1 fL (80.0-100.0); Mean Platelet Volume 10.6 fL (9.4-12.4); Monocytes # (auto) 0.56 K/uL (0.11-0.59); Monocytes % (auto) 6.9 %; Neutrophils # (auto) 4.83 K/uL (1.40-6.50); Neutrophils % (auto) 59.3 %; Platelet Count 211 K/uL (130-400); RDW Coefficient of Variation 12.9 % (11.5-14.5); RDW Standard Deviation 44.4 fL (36.4-46.3); Red Blood Count 3.53 M/uL (4.20-5.40); White Blood Count 8.14 K/ul (4.8-10.8)
[2023-04-03 06:18] LABS: BUN Creatinine Ratio 7.7 (10-20); Calcium 7.5 mg/dl (8.6-10.3); Creatinine Clr Calc Pharmacy 86.9 ml/min; Est GFR (African American) 100.6 ml/min; Est GFR (Non-African American) 86.8 ml/min; Magnesium 1.7 mg/dl (1.7-2.4); Phosphorus 3.2 mg/dl (2.5-4.9)
[2023-04-03] MEDS: MIDODRINE HCL 10 MG TAB PO SCH ×3 (08:09→17:46)
--- NOTE | 2023-04-03 12:31 | Hospitalist Progress Note ---
Date of Service April 03, 2023 Assessment & Plan (1) Acute cholecystitis: (2) Acute diverticulitis: (3) Low blood pressure: Plan 52-year-old female with past med significant for PVCs, varicose veins of both lower extremities, hereditary multiple exostosis, myofascial pain syndrome, osteochondroma, obesity admitted with cholecystitis and diverticulitis. Acute emphysematous cholecystitis Diverticulitis Pt presented with abdominal pain CT abd/pelvis noting acute diverticulitis of distal colon, could not exclude emphysematous cholecystitis. Gallbladder US confirming suspicion of emphysematous cholecystitis s/p lap john on 04/01 by General Surgery -encourage ambulation, incentive spirometry -Lovenox and SCDs for DVT prophylaxis -Tolerating full liquids, advance diet to low fiber tomorrow a.m. by surgery Continue empiric zosyn (day 4) IV fluids, pain control Needs outpatient colonoscopy in 6 to 8 weeks Hypotension chronic issue. Started on midodrine, dose currently at 10 mg TID BP stable DVT PROPHYLAXIS SCDs/Lovenox as per general surgery Patient seen collaboration with Dr. Gonzalez. Admission and Anticipated Discharge Date Admission Date: April 02, 2023 Supervising Physician Co-Signing Physician Notes Pt seen and examined by myself, Wanda Gonzalez MD on the day of service. Care was coordinated with RANDEE Gonzalez. Pt seen in the AM. States still having persistent pain unchanged from previous day. Followed by General Surgery, advancing diet. Pain control. Otherwise as above. Subjective Follow-up for acute cholecystitis s/p laparoscopic cholecystectomy, diverticulitis. Patient seen and examined. Reports ongoing left-sided abdominal pain however slightly improved from yesterday. Denies nausea, tolerating clear liquid diet. Remains afebrile. Denies chest pain and shortness of breath. Physical Exam Constitutional: WD/WN, vitals as above Respiratory: normal respiratory effort, lungs clear to auscultation Cardiovascular: Rate/Rhythm: regular rate and regular rhythm Vessels: normal peripheral pulses Extremities: no edema Gastrointestinal (Abdomen): Percussion/Palpation: + abdomen tender (Generally tender throughout) and abdomen soft Laparoscopic incisions CDI Skin: no rashes, warm and dry Neurologic: no focal motor deficits Psychiatric: A+Ox3, euthymic affect Results & Data Results & Data Vital Signs (Past 12 Hours) Vital Signs Temp Pulse Resp BP BP Pulse Ox O2 Del Method 04/03/23 10:14 102/66 04/03/23 07:55 37.0 C 67 18 92/54 L 94 Room Air 04/03/23 04:15 36.6 C 78 18 94/62 L 95 Room Air Laboratory Results Short CBC 04/03/23 Range/Units 05:36 WBC 8.14 (4.8-10.8) K/ul Hgb 10.8 L (12.0-16.0) g/dl Hct 33.2 L (37.0-47.0) % Plt Count 211 (130-400) K/uL BMP 04/03/23 05:36 Sodium 143 Potassium 4.0 Chloride 114 H Carbon Dioxide 27 BUN 6 Creatinine 0.78 Glucose 92 Calcium 7.5 L
[2023-04-03] MEDS: LACTATED RINGER'S 1,000 ML IV SCH (12:35)
[2023-04-03] MEDS: ONDANSETRON INJ 2 MG/ML 2 ML VIAL IV PRN (12:39)
[2023-04-03] MEDS ORDERED: oxyCODONE/ACETAMINOPHEN 5mg/325mg TAB PO PRN ×2 (13:57→13:59)
[2023-04-03] MEDS ORDERED: IBUPROFEN 600 MG TAB PO PRN (14:01)
--- NOTE | 2023-04-03 15:18 | Surgery Progress Note ---
Date of Service April 03, 2023 Assessment & Plan (1) Acute diverticulitis: Plan: afebrile, no leukocytosis pain slowly improving (2) Acute emphysematous cholecystitis: Plan POD #2 s/p laparoscopic cholecystectomy Plan: Pain control with p.o. pain meds encouraged, IV for breakthrough if absolutely needed Encourage out of bed, ambulation, incentive spirometry Lovenox and SCDs for DVT prophylaxis Advance diet as tolerated Continue IV antibiotics for diverticulitis hopeful discharge tomorrow Dr. Dia has seen and examined patient, agrees with above. Admission and Anticipated Discharge Date Admission Date: April 02, 2023 Subjective feeling better today than yesterday but still having moderate pain no n,v tolerated clear liquids diarrhea last night no chest pain or shortness of breath Physical Exam Constitutional: WD/WN, vitals as above no acute distress and not ill appearing Respiratory: normal respiratory effort; no respiratory distress Gastrointestinal (Abdomen): Inspection/Auscultation: abdomen normal to inspection and + abdominal surgical incision (c/d/i mild erythema surrounding incisions); abdomen not distended Percussion/Palpation: + abdomen tender (generalized throughout abdomen) and abdomen soft; no guarding and abdomen not rigid Skin: no rashes, warm and dry Psychiatric: Orientation: alert and oriented x 3 Results & Data Vital Signs (Past 12 Hours) Vital Signs Temp Pulse Resp BP BP Pulse Ox O2 Del Method 04/03/23 10:14 102/66 04/03/23 07:55 37.0 C 67 18 92/54 L 94 Room Air 04/03/23 04:15 36.6 C 78 18 94/62 L 95 Room Air Laboratory Results 04/03/23 04/03/23 04/03/23 Range/Units 05:36 05:36 05:36 WBC 8.14 (4.8-10.8) K/ul RBC 3.53 L (4.20-5.40) M/uL Hgb 10.8 L (12.0-16.0) g/dl Hct 33.2 L (37.0-47.0) % MCV 94.1 (80.0-100.0) fL MCH 30.6 (25.0-34.0) pg MCHC 32.5 (32.0-36.0) g/dL RDW Std Deviation 44.4 (36.4-46.3) fL RDW Coeff of Jovan 12.9 (11.5-14.5) % Plt Count 211 (130-400) K/uL MPV 10.6 (9.4-12.4) fL Immature Gran % (Auto) 0.4 % Neut % (Auto) 59.3 % Lymph % (Auto) 29.9 % [place] % (Auto) 6.9 % Eos % (Auto) 3.4 % Baso % (Auto) 0.1 % Neut # (Auto) 4.83 (1.40-6.50) K/uL Lymph # (Auto) 2.43 (1.20-3.40) K/uL Wood # (Auto) 0.56 (0.11-0.59) K/uL Eos # (Auto) 0.28 (0.00-0.50) K/uL Baso # (Auto) 0.01 (0.00-0.20) K/uL Immature Gran # (Auto) 0.03 (0.01-0.20) K/uL Sodium 143 (136-145) mmol/L Potassium 4.0 (3.5-5.1) mmol/L Chloride 114 H (98-107) mmol/L Carbon Dioxide 27 (21-32) mmol/L Anion Gap 2 L (3-11) BUN 6 (6-23) mg/dl Creatinine 0.78 (0.6-1.2) mg/dl Est Cr Clr Drug Dosing 86.9 ml/min Est GFR ( Amer) 100.6 ml/min Est GFR (Non-Af Amer) 86.8 ml/min BUN/Creatinine Ratio 7.7 L (10-20) Glucose 92 (70-99(Fasting)) mg/dl Calcium 7.5 L (8.6-10.3) mg/dl Ionized Calcium 1.15 (1.12-1.32) mmol/L Phosphorus 3.2 (2.5-4.9) mg/dl Magnesium 1.7 (1.7-2.4) mg/dl
[2023-04-03] MEDS: ACETAMINOPHEN 325 MG TAB PO PRN (17:48)
[2023-04-04] MEDS: ONDANSETRON INJ 2 MG/ML 2 ML VIAL IV PRN (01:56)
[2023-04-04] MEDS: LACTATED RINGER'S 1,000 ML IV SCH (02:22)
[2023-04-04] MEDS: PROMETHAZINE HCL 12.5 MG in SODIUM CHLORIDE 0.9% 50 ML IV PRN (04:30)
[2023-04-04] MEDS: PIPERACILLIN/TAZOBACTAM 4.5 GM in DEXTROSE 5% MINI-B 100 ML IV SCH (04:47)
[2023-04-04] MEDS: ENOXAPARIN INJ 40 MG/0.4 ML SYR SQ SCH (04:49)
[2023-04-04 06:41] LABS: Basophils # (auto) 0.02 K/uL (0.00-0.20); Basophils % (auto) 0.2 %; Eosinophils % (auto) 3.6 %; Hematocrit (blood only) 33.6 % (37.0-47.0); Hemoglobin 11.2 g/dl (12.0-16.0); Immature Granulocytes # (auto) 0.04 K/uL (0.01-0.20); Immature Granulocytes % (auto) 0.5 %; Lymphocytes % (auto) 27.5 %; Mean Corpuscular Hemoglobin 30.7 pg (25.0-34.0); Mean Corpuscular Hgb Conc 33.3 g/dL (32.0-36.0); Mean Corpuscular Volume 92.1 fL (80.0-100.0); Mean Platelet Volume 10.4 fL (9.4-12.4); Monocytes # (auto) 0.63 K/uL (0.11-0.59); Monocytes % (auto) 7.5 %; Neutrophils # (auto) 5.07 K/uL (1.40-6.50); Neutrophils % (auto) 60.7 %; Platelet Count 231 K/uL (130-400); RDW Coefficient of Variation 12.6 % (11.5-14.5); RDW Standard Deviation 42.4 fL (36.4-46.3); Red Blood Count 3.65 M/uL (4.20-5.40); White Blood Count 8.36 K/ul (4.8-10.8)
[2023-04-04 07:04] LABS: BUN Creatinine Ratio 6.9 (10-20); Calcium 7.9 mg/dl (8.6-10.3); Creatinine Clr Calc Pharmacy 77.9 ml/min; Est GFR (African American) 88.2 ml/min; Est GFR (Non-African American) 76.1 ml/min; Magnesium 1.7 mg/dl (1.7-2.4); Phosphorus 3.4 mg/dl (2.5-4.9); Potassium 3.8 mmol/L (3.5-5.1)
[2023-04-04] MEDS: ACETAMINOPHEN 325 MG TAB PO PRN (08:27)
[2023-04-04] MEDS: MIDODRINE HCL 10 MG TAB PO SCH ×2 (08:28→12:14)
--- NOTE | 2023-04-04 10:26 | Surgery Progress Note ---
Date of Service April 04, 2023 Assessment & Plan (1) Acute diverticulitis: Plan: afebrile, no leukocytosis pain left upper to mid abdomen slowly improving Day # 4 of IV Zosyn (2) Acute emphysematous cholecystitis: Plan POD #3 s/p laparoscopic cholecystectomy avss chronically hypotensive, asymptomatic Plan: Pain control with p.o. pain meds Encourage out of bed, ambulation, incentive spirometry Continue IV antibiotics for diverticulitis stool culture for c. diff given multiple episodes of watery diarrhea last night stop IV fluids discharge home this afternoon once ambulating hallway and eating discharge instructions reviewed will need Rx for antibiotics for another 6 days for total of 10 days of antibiotics for acute uncomplicated diverticulitis. Dr. Dia has seen and examined patient, agrees with above. Admission and Anticipated Discharge Date Admission Date: April 02, 2023 Subjective had a rough night, up all night with watery diarrhea and burning low abdominal pain pain in the left abdomen better today no fevers or chills no nausea or vomiting, tolerated soft diet wants to go home "just tired of all of this" Physical Exam Constitutional: + overweight; no acute distress and not ill appearing not in distress but looks fatigued and tired Respiratory: normal respiratory effort; no respiratory distress Gastrointestinal (Abdomen): Inspection/Auscultation: abdomen normal to inspection and + abdominal surgical incision (C/D/I with dermabond, mild erythema surrounding umbilical incision, stable); abdomen not distended Percussion/Palpation: + abdomen tender (LUQ and at incision sites) and abdomen soft; no guarding and abdomen not rigid Skin: no rashes, warm and dry Psychiatric: Orientation: alert and oriented x 3 Results & Data Vital Signs (Past 12 Hours) Vital Signs Temp Pulse Resp BP BP Pulse Ox O2 Del Method 04/04/23 07:45 37.2 C 70 16 98/66 L 94 Room Air 04/04/23 04:34 37.0 C 72 20 91/51 L 98 Room Air 04/04/23 00:37 36.6 C 67 16 92/52 L 96 Room Air Laboratory Results 04/04/23 04/04/23 04/04/23 Range/Units 06:17 06:17 06:17 WBC 8.36 (4.8-10.8) K/ul RBC 3.65 L (4.20-5.40) M/uL Hgb 11.2 L (12.0-16.0) g/dl Hct 33.6 L (37.0-47.0) % MCV 92.1 (80.0-100.0) fL MCH 30.7 (25.0-34.0) pg MCHC 33.3 (32.0-36.0) g/dL RDW Std Deviation 42.4 (36.4-46.3) fL RDW Coeff of Jovan 12.6 (11.5-14.5) % Plt Count 231 (130-400) K/uL MPV 10.4 (9.4-12.4) fL Immature Gran % (Auto) 0.5 % Neut % (Auto) 60.7 % Lymph % (Auto) 27.5 % [place] % (Auto) 7.5 % Eos % (Auto) 3.6 % Baso % (Auto) 0.2 % Neut # (Auto) 5.07 (1.40-6.50) K/uL Lymph # (Auto) 2.30 (1.20-3.40) K/uL [place] # (Auto) 0.63 H (0.11-0.59) K/uL Eos # (Auto) 0.30 (0.00-0.50) K/uL Baso # (Auto) 0.02 (0.00-0.20) K/uL Immature Gran # (Auto) 0.04 (0.01-0.20) K/uL Sodium 142 (136-145) mmol/L Potassium 3.8 (3.5-5.1) mmol/L Chloride 110 H (98-107) mmol/L Carbon Dioxide 29 (21-32) mmol/L Anion Gap 3 (3-11) BUN 6 (6-23) mg/dl Creatinine 0.87 (0.6-1.2) mg/dl Est Cr Clr Drug Dosing 77.9 ml/min Est GFR ( Amer) 88.2 ml/min Est GFR (Non-Af Amer) 76.1 ml/min BUN/Creatinine Ratio 6.9 L (10-20) Glucose 96 (70-99(Fasting)) mg/dl Calcium 7.9 L (8.6-10.3) mg/dl Ionized Calcium 1.17 (1.12-1.32) mmol/L Phosphorus 3.4 (2.5-4.9) mg/dl Magnesium 1.7 (1.7-2.4) mg/dl
--- NOTE | 2023-04-04 13:22 | Hospitalist Progress Note ---
Date of Service April 04, 2023 Assessment & Plan (1) Acute cholecystitis: (2) Acute diverticulitis: (3) Low blood pressure: Plan 52-year-old female with past med significant for PVCs, varicose veins of both lower extremities, hereditary multiple exostosis, myofascial pain syndrome, osteochondroma, obesity admitted with cholecystitis and diverticulitis. Acute emphysematous cholecystitis Diverticulitis Pt presented with abdominal pain CT abd/pelvis noting acute diverticulitis of distal colon, could not exclude emphysematous cholecystitis. Gallbladder US confirming suspicion of emphysematous cholecystitis s/p lap john on 04/01 by General Surgery -encourage ambulation, incentive spirometry -Lovenox and SCDs for DVT prophylaxis -Tolerating low fiber diet Continue empiric zosyn (day 5) d/v IVF today pain control Needs outpatient colonoscopy in 6 to 8 weeks Due to reports of diarrhea overnight, C. diff was checked and negative Plan for d/c today by general surgery Hypotension chronic issue. Started on midodrine, dose currently at 10 mg TID BP stable Script provided for discharge, patient to continue and follow up with PCP - appointment made DVT PROPHYLAXIS SCDs/Lovenox as per general surgery Patient seen collaboration with Dr. Gonzalez. Admission and Anticipated Discharge Date Admission Date: April 02, 2023 Supervising Physician Co-Signing Physician Notes Pt seen and examined by myself, Wanda Gonzalez MD on the day of service. Care was coordinated with RANDEE Gonzalez. 52yoF admitted with acute cholecystitis and diverticulitis. S/p cholecystectomy on 04/01. Treated with 5 days of Zosyn. Discharged with Augmentin for treatment of diverticulitis- consider ciprofloxacin or cefdinir AND Flagyl if symptoms persistent or worsening. Discharged with midodrine for hypotension- wean as tolerated, close pcp followup, consider cardiology referral. Otherwise as above. Subjective Follow-up for acute cholecystitis s/p laparoscopic cholecystectomy, diverticulitis. Patient seen and examined. Reports left-sided abdominal pain has significantly improved. Reports multiple episodes of watery diarrhea overnight. States she is tolerating regular diet. She is eager to be discharged. Physical Exam Constitutional: WD/WN, vitals as above Respiratory: normal respiratory effort, lungs clear to auscultation Cardiovascular: Rate/Rhythm: regular rate and regular rhythm Vessels: normal peripheral pulses Extremities: no edema Gastrointestinal (Abdomen): Percussion/Palpation: + abdomen tender (Mild left-sided abdominal tenderness) and abdomen soft Skin: no rashes, warm and dry Neurologic: no focal motor deficits Psychiatric: A+Ox3, euthymic affect Results & Data Results & Data Vital Signs (Past 12 Hours) Vital Signs Temp Pulse Resp BP BP Pulse Ox O2 Del Method 04/04/23 12:12 93/61 L 04/04/23 07:45 37.2 C 70 16 98/66 L 94 Room Air 04/04/23 04:34 37.0 C 72 20 91/51 L 98 Room Air Laboratory Results Short CBC 04/04/23 Range/Units 06:17 WBC 8.36 (4.8-10.8) K/ul Hgb 11.2 L (12.0-16.0) g/dl Hct 33.6 L (37.0-47.0) % Plt Count 231 (130-400) K/uL BMP 04/04/23 06:17 Sodium 142 Potassium 3.8 Chloride 110 H Carbon Dioxide 29 BUN 6 Creatinine 0.87 Glucose 96 Calcium 7.9 L
--- NOTE | 2023-04-16 14:09 | Discharge Summary ---
Date of Service April 16, 2023 Admission HPI Per Admitting Provider 52-year-old woman presents with few week history of diffuse abdominal pain. She has a history of diverticulitis. She states yesterday that the pain became significantly worse in the right side as well. And radiates to the back. She has been cold. She denies fevers. She has been having normal bowel movements. She has had decreased food intake. She has a history of C-sections and a laparoscopy in the past. Principal Diagnosis Acute cholecystitis Discharge Data Allergies Allergy/AdvReac Type Severity Reaction Status Date / Time hydromorphone [From Dilaudid] Allergy Unknown Unknown Verified 03/10/22 10:07 meperidine AdvReac Severe Seizure Verified 03/10/22 10:07 (as child) Consultations 03/31/23 19:33 ED Decision to Admit Stat 03/31/23 21:35 Consult Hospitalist Routine Procedures Performed Operation Date: 04/01/23 10:30 Actual Procedures p Laparoscopic Cholecystectomy - Reji Dia MD Ordered Studies 03/31/23 15:12 CT abd pelvis IV con only Stat 03/31/23 18:21 US gallbladder Stat 04/01/23 22:41 CT abd pelvis IV con only Stat Hospital Course (1) Acute diverticulitis: (2) Acute emphysematous cholecystitis: Plan She is admitted to the hospital placed on IV antibiotics. She was taken to the operating room for laparoscopic cholecystectomy. The details of this are dictated in a separate operative note. She did well postoperatively. She maintained on IV antibiotics for the diverticulitis. Pain was controlled with IV and oral pain medications. DVT prophylaxis with SCD boots and Lovenox. Her diet was slowly advanced. By the day of discharge she was tolerating regular diet, not requiring any IV pain medications, and was discharged home in stable condition. She will return for follow-up in the office in 2 weeks. Total Time Total Time Spent Total Time Spent (In Minutes): 30 min Discharge Plan Discharge Items Patient Disposition: Home - Self-Care Reason For Visit: ACUTE CHOLECYSTITIS Discharge Diagnosis: Acute cholecystitis Acute diverticulitis Activity: Per Instructions section Non-emergency contact: Primary Care Provider and Surgeon Call non-emergency contact if: you have any medication questions, your pain is not controlled, your pain is worsening, you have a fever, your temperature is above 101, your wound has increased redness, your wound has increased drainage and your wound pain has increased Follow-up/Referrals: Reji Dia MD [Physician] - (2 weeks ) Luis Domingo DO [Primary Care Provider] - (Date & Time 04/09/2023 2:20 PM Provider Luis Domingo DO Department [facility] ) Diet: Low Fiber Addtl Attending Provider Instructions: Post-Surgical ~Discharge Instructions Activity Recommendations: - lifting limitation: (20 pounds for 2-3 weeks), - exercise/sex/sports limit: (nonstrenuous for 2 weeks), - driving or machine use limit: (none for 1 week or until pain free and no longer taking narcotic pain medication), - Shower/bathe limit: (may shower) Diet: - 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 Certain foods (mostly fatty/greasy) can cause diarrhea. SPECIAL CARE INSTRUCTIONS: - May shower. Let water run over area and pat dry. - Surgical glue will fall off on its own. Do not pick at it. - Call the surgeon's office with any questions or concerns - - (ex. temperature higher than 101 degrees F, excessive bleeding or pain). MEDICATIONS: - Resume previous medications unless instructed otherwise by your surgeon. - May alternate extra strength Tylenol and ibuprofen as needed for mild to moderate pain -650 mg Tylenol every 6 hours as needed - Ibuprofen 600 mg every 6 hours as needed (take with food) - Percocet 1 every 6 hours, as needed for moderate to severe pain - Take antibiotics as prescribed for full entire course FOLLOW UP VISIT: - If not already scheduled, please call the office to schedule a two week follow-up appointment with Dr. Dia Office number You were also diagnosed with acute diverticulitis (inflammation of the colon). You will need to finish course of antibiotics at home. Take entire course as prescribed. Recommend low fiber diet for 2 weeks and the slowly increase fiber back into diet. Once through acute phase of diverticulitis we actually recommend high fiber diet to prevent constipation and straining and putting pressure on the colon wall to hopefully prevent future attacks of diverticulitis. You were also found to have low blood pressure throughout your hospitalization however this has been chronic for you. The medicine team prescribed a new medication. Take as directed and reach out to your PCP office with any questions/concerns about your blood pressure. Pending Studies at Discharge: No Stand-Alone Forms: [facility], Pain - Opioid Pain Management, Smoking Cessation Medications and DC Order Prescriptions: New midodrine 10 mg Tablet 10 mg PO TID@0800,1200,1700 Qty: 42 0RF oxycodone-acetaminophen 5-325 mg tablet 1 tab PO Q6H PRN (Reason: pain) Qty: 12 0RF amoxicillin-pot clavulanate 875-125 mg tablet 1 tab PO BID Qty: 12 0RF Continued metoprolol succinate 25 mg Tablet Extended Release 24 Hr 25 mg PO DAILY PRN (Reason: Palpitations) trazodone 100 mg tablet 200 mg PO HS Prempro 0.45-1.5 mg tablet 1 tab PO HS Discharge Orders: Discharge Order (Routine); Ordered 04/04/23 Ordered By: Leticia Muñoz/Other Patient Handouts: Diverticulitis Dc, Hypotension Dc Admission Data Admit Date/Time: 04/02/23 15:38 Attending Provider: Reji Dia Admit Provider: Reji Dia Primary Care Provider: Luis Domingo Other Providers: Reji Dia ; Janet Shepherd ; Shanna Galeana I. ; Rosario Cordero ; Jacqueline Trujillo ; Brenda Byrd ; Shira Palacio ; Suki Patel ; Celso Hernandez ; Tod Baez ; Juvencio Ennis ; Nydia Colmenares ; Kirill Valle ; Dena Ospina ; Pallavi Major ; Wanda Gonzalez ; Christian Bond ; Anay Edwards ; Joanna Cobian ; Baudilio Patterson ; Olimpia Stewart I. ; Vazquez Brantley ; Sohail Talbert ; Nataly Troncoso ; Lesia Alvarado ; Deejay Bhatt ; William Espinoza ; Aneesh Dias ; Fidelia Jean ; Tracy Munoz Other Interventions: Discharge Summary Assessment (RN) Last Done: 04/04/23 13:40
== END 2023-04-04 14:09 | disposition home or self-care (01) | DRG 418 ==
LOC: 3E 14:29 → ED 14:29 → SUATTDRO 20:12 → 3E 21:12